=== PATIENT | male | born 2005 | race Caucasian/White ===

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

== ENCOUNTER → 2024-01-03 | Outpatient (CLI) | payer OTHER, BC, SELFPAY ==
[2024-01-03 17:49] LABS: Absolute Lymphocyte Count 2.63 X10^3/uL (0.83-4.51); Absolute Neutrophil Count 2.9 X10^3/uL (2.0-7.7); Basophil# 0.08 X10^3/uL; Basophil% 1.2 % (0-1); Eosinophil# 0.25 X10^3/uL; Eosinophils% 3.7 % (0-5); Hematocrit 42.8 % (40-54); Hemoglobin 13.7 g/dL (13.0-16.5); Lymphocyte # 2.63 X10^3/ul (0.83-4.51); Lymphocyte % 39.2 % (19-41); Mean Corpuscular Hgb 26.6 pg (27.0-32.0); Mean Corpuscular Volume 82.9 fL (80-94); Mean Platelet Vol. 9.4 fl (6.2-12.0); Monocyte% 11.9 % (0-10); NRBC Flagged by Analyzer 0 % (0-5); Neutrophil # 2.94 X10^3/uL (2.7-7.7); Neutrophil % 43.9 % (47-70); Platelet Count 413 K/mm3 (150-450); RBC Distribution Width CV 12.7 % (11.6-14.6); RBC Distribution Width SD 38.4 fl (35.1-43.9); Red Blood Count 5.16 M/mm3 (4.6-6.2); White Blood Count 6.7 K/mm3 (4.4-11.0)
[2024-01-03 18:10] LABS: Erythrocyte Sedimentation Rate 5 mm/hr (0-20)
[2024-01-03 18:24] LABS: ALB/GLOB Ratio 0.9 RATIO (0.9-2.4); AST(SGOT) 25 U/L (15-37); Alanine Aminotransfer ALT/SGPT 46 U/L (16-61); Albumin, Serum 3.9 g/dL (3.2-5.0); Alkaline Phosphatase 148 U/L (45-117); Anion Gap 7 (5-15); BUN 11 mg/dL (7-18); BUN/Creat Ratio 12.9 RATIO (10-20); CRP < 2.90 mg/L (0.0-3.0); Calcium,Total 9.5 mg/dL (8.5-10.1); Chloride 103 mmol/L (98-107); Creatinine, Serum 0.85 mg/dL (0.70-1.30); EST Glomerular Filtration Rate 122 mL/min (>60); Est Glom Filt Rate - Afr Amer 148 mL/min (>60); Globulin 4.3 g/dL (2.2-4.2); Glucose 84 mg/dL (74-106); Potassium 4.1 mmol/L (3.5-5.1); Protein, Total 8.2 g/dL (6.4-8.2); Sodium Level 137 mmol/L (136-145)
== END | disposition home or self-care (01) ==
PROVIDERS: PCP Family Medicine; Referring Provider Family Medicine; Visit Provider Family Medicine
DX: K51.00 Ulcerative (chronic) pancolitis without complications (principal)
CPT/HCPCS: 36415; 80053; 85025; 85652; 86140

== ENCOUNTER 2024-01-07 11:17 | Emergency (ER) | payer OTHER, BC, SELFPAY ==
[2024-01-07 11:18] VITALS: BP 111/53; PULSE 101; RESP 22; TEMP 36.7; O2SAT 96; BMI 33.9
[2024-01-07 11:20] VITALS: BP 111/53; PULSE 101; RESP 22; TEMP 36.7; O2SAT 96
--- NOTE | 2024-01-07 11:35 | CT_ITS ---
STUDY: CT ABDOMEN AND PELVIS WITH CONTRAST REASON FOR EXAM: Male, 18 years old. Diffuse abdominal pain RADIATION DOSAGE (If Supplied By Facility): CTDIvol = ( 16.75 ) mGy, DLP = ( 1387.00 ) mGycm TECHNIQUE: Transaxial images were obtained from the dome of the diaphragm to the symphysis pubis without oral contrast. IV 100mL Isovue-370 was administered. Sagittal and coronal images were reconstructed. Individualized dose optimization techniques were used for this CT. COMPARISON: 12/18/2023 FINDINGS: The visualized lung bases are unremarkable. The visualized portions of the heart are within normal limits. Normal liver. Normal gallbladder and extrahepatic biliary system. Normal spleen. Normal pancreas. Normal bilateral adrenal glands. Normal right kidney. Normal left kidney. Normal visualized stomach. Nondistended fluid-filled small bowel loops suggestive of ileus. Retained stool throughout the colon The appendix is visualized and appears normal. Appendix seen on coronal recon images 61-72 Normal abdominal aorta. Normal inferior vena cava. Normal retroperitoneum. Normal urinary bladder. There is a small umbilical hernia containing fat. Normal osseous structures. CT/Abdomen/Pelvis W IV Cont ONLY IMPRESSION: No suspicious solid organ abnormality No free intraperitoneal fluid, air, or suspicious adenopathy, normal appendix visualized Small bowel ileus perhaps due to retained stool throughout the entirety of the colon Electronically Signed: Erick Ramirez MD at 13:32 EDT ,
--- NOTE | 2024-01-07 11:36 | ED.VIS.GI ---
HPI HPI - GI History of Present Illness Chief Complaint: Abd Pain Detail of Chief Complaint: Abdominal pain Informant: patient Narrative Narrative: Patient presents with abdominal pain it has been ongoing off and on for 6 months. He was seen in the emergency department 2 weeks ago and diagnosed with pancolitis. 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 He has not been given his results and has not followed up and has an appointment to see the GI doctor again in 2 weeks. Patient seen in the emergency department 2 weeks ago and diagnosed with pancolitis and started on Augmentin which she finished. Continues to have the same belly pain. Also today had a low-grade fever and his cough gotten worse over the last 3 days. Both parents also with URI symptoms. Patient today had pain to the right lower quadrant which is unusual as his pain was more left-sided before. He denies any blood in his stool or black tarry stool. [facility] Medical History (Updated 01/07/24 @ 14:[address] Medhat Miller, DO) Colitis Home Medications ?Medication ?Instructions ?Recorded ?Last Taken ?Type dicyclomine 20 mg tablet 20 mg PO TID #20 tabs 12/18/23 Unknown Rx rabeprazole 20 mg tablet,delayed 20 mg PO Q24H 12/18/23 12/16/23 History release benzonatate 200 mg capsule 200 mg PO TID PRN cough #20 caps 01/07/24 Unknown Rx mesalamine 800 mg tablet,delayed 1,600 mg PO BID 01/07/24 Unknown History release Allergy/AdvReac Type Severity Reaction Status Date / Time iodine Allergy Other Verified 01/07/24 11:18 Family History (Reviewed 05/12/22 @ 07:59 by Linn Chi [employer]IDENT[employer]DELING [employer]ACTOR, RESIDENTIAL [employer]ODELING SUBCONTRACTOR-C) Father Asthma Surgical History No pertinent past surgical history Social History Smoking Status: Never smoker ROS ROS ED Review of Systems ROS Unobtainable: other Constitutional Constitutional ED: Reports lethargy; Denies chills, fever(s), sweats or weight loss Eyes Eyes: Denies blurry vision, change in vision or diplopia ENT ENT ED: Denies rhinorrhea or sore throat Cardiovascular Cardiovascular: Denies chest pain, orthopnea or racing heartbeat Respiratory/Chest Respiratory/Chest: Reports cough; Denies dyspnea, dyspnea on exertion, orthopnea or sputum Gastrointestinal Gastrointestinal: Reports abdominal pain; Denies diarrhea, nausea or vomiting Genitourinary Genitourinary ED: Denies dysuria, hematuria or urinary frequency Musculoskeletal Musculoskeletal: Denies arthralgias, back pain, myalgias or neck pain Integumentary Denies abscess, Abrasions or rash Neurologic Neurologic: Denies headache(s) or weakness Psychiatric Psychiatric: Denies anxiety, depression or suicidal thoughts Endocrine Endocrinology: Denies polydipsia, polyphagia or polyuria Hematologic/Lymphatic Hematologic/Lymphatic: Denies easy bleeding, easy bruising or lymphadenopathy Allergic/Immunologic Allergic/Immunologic ED: Denies mouth swelling, tongue swelling or urticaria EXAM Physical Exam Const Vital Signs: 01/07/24 11:18 01/07/24 11:20 01/07/24 13:43 Temperature 98.1 F 98.1 F Temperature Source Temporal Oral Pulse Rate 101 H 101 H 91 Respiratory Rate 22 H 22 H 18 Blood Pressure 111/53 L 111/53 L 99/84 H Blood Pressure Mean 72 72 89 Pulse Ox 96 96 99 Oxygen Delivery Method Room Air Room Air Room Air Positive well nourished and well developed General Appearance ED: well developed and NAD HEENT Reports TM's clear and moist mucous membranes normocephalic and atraumatic; Negative for trauma or tenderness Tympanic Membrane ED: Yes TM's clear Eyes PERRL and EOMs intact bilaterally General Eye ED: Negative for pale conjunctiva or scleral icterus Neck no lymphadenopathy, supple and no JVD General: Negative for tenderness Chest Wall inspection of chest normal and palpation of chest normal Chest: Negative for tenderness Resp normal respiratory effort and clear to auscultation bilaterally Effort and Inspection: Negative for respiratory distress or pain with movement Auscultation: Negative for rhonchi, wheezes or diminished lung sounds Cardio regular rate, regular rhythm, S1 normal heart sound, S2 normal heart sound and no murmurs Peripheral Pulses: pulses 2+ throughout GI normal to inspection, nondistended, normoactive bowel sounds, soft to palpation, non-distended and no masses GI Narrative: Patient with tenderness palpation over right lower quadrant with some mild guarding. He has some mild diffuse tenderness as well. There is no rebound, rigidity, or perineal signs. No mass palpated Back/Spine no CVA tenderness and no thoracic nor lumbar tenderness Extremity normal to inspection General Extremety ED: Negative for edema General Extremity: Negative for edema Neuro oriented x3, CN's II-XII intact bilaterally, no sensory deficits noted and gait normal Sensorium / Orientation: awake, alert, oriented to person, oriented to place and oriented to time Motor Exam: strength 5/5 throughout and strength abnormal Psych mental status grossly normal Skin no rashes or lesions noted and no wounds MDM MDM MDM Narrative Medical decision making narrative: Patient presents the emergency department with complaint of abdominal pain as well as cough and not feeling well. Patient was seen in the emergency department few weeks ago and diagnosed with pancolitis and was treated with antibiotics. He continues to have intermittent abdominal discomfort. He is got an upcoming appoint with GI. Patient also complains of a cough and fever now. IV line established. CBC with differential obtained showing a 5.4 with hemoglobin 14 and platelet count of 336. Chemistries unremarkable. LFTs were unremarkable other than a minimally elevated AST of 42 and alk phos of 151. Urinalysis unremarkable. 1 view chest x-ray obtained interpreted by myself as no evidence of infiltrate or acute process. CT scan of the abdomen pelvis showed no evidence of colitis but did show some moderate stool throughout the colon. Clinically he looks well. His COVID flu and RSV testing was positive for COVID-19. This point recommended supportive care. Will write him for Johana Burton. Advised on pushing fluids and staying hydrated. Lab Data Attestation: I reviewed the patient's lab results. Labs: Laboratory Results - last 24 hr 01/07/24 01/07/24 11:50 13:28 WBC 5.4 RBC 5.16 Hgb 14.1 Hct 42.9 MCV 83.1 MCH 27.3 MCHC 32.9 RDW Std Deviation 38.5 RDW Coeff of Patricia 12.6 Plt Count 336 MPV 9.0 Immature Gran % (Auto) 0.200 Neut % (Auto) 74.2 H Lymph % (Auto) 8.5 L [place] % (Auto) 14.7 H Eos % (Auto) 1.3 Baso % (Auto) 1.1 H Absolute Neuts (auto) 4.0 Absolute Lymphs (auto) 0.46 L Nucleated RBC % 0 Sodium 139 Potassium 3.6 Chloride 107 Carbon Dioxide 29.0 Anion Gap 3 L BUN 7 Creatinine 0.94 Estim Creat Clear Calc 169.07 Est GFR (MDRD) Af Amer 132 Est GFR (MDRD) Non-Af 109 BUN/Creatinine Ratio 7.5 L Glucose 98 Lactic Acid 1.2 Calcium 9.1 Total Bilirubin 0.50 AST 42 H ALT 55 Alkaline Phosphatase 151 H Total Protein 8.1 Albumin 3.6 Globulin 4.5 H Albumin/Globulin Ratio 0.8 L Urine Color Yellow Urine Clarity Clear Urine pH 8.0 Ur Specific [place] 1.010 Urine Protein 15 H Urine Glucose (UA) Normal Urine Ketones Negative Urine Occult Blood 10 H Urine Nitrite Negative Urine Bilirubin Negative Urine Urobilinogen 1 H Ur Leukocyte Esterase Negative Urine RBC 0 SEEN Urine WBC 0 SEEN Ur Squamous Epith Cells 0 SEEN Urine Bacteria 0 SEEN Urine Mucus 0 SEEN Radiography Diagnostic Testing: Clinical Impression(s) from Imaging Studies Abdomen/Pelvis CT 01/07/24 11:35 IMPRESSION: No suspicious solid organ abnormality No free intraperitoneal fluid, air, or suspicious adenopathy, normal appendix visualized Small bowel ileus perhaps due to retained stool throughout the entirety of the colon Electronically Signed: Erick Ramirez MD at 13:32 EDT Reading Location ID and State: [address] [place] [address] , Service support , 1 view chest x-ray obtained interpreted by myself as no evidence of infiltrate or pneumothorax or acute disease process. Discharge Plan Triage Chief Complaint: Abd Pain ED Provider: Medhat Miller Dx/Rx/DC Orders Clinical Impression: Abdominal pain, COVID-19 Instructions: Caring for Someone Who Has COVID-19, ED Abdominal Pain Unkn Cause Male... Prescriptions: New benzonatate 200 mg capsule 200 mg PO TID PRN (Reason: cough) Qty: 20 0RF No Action rabeprazole 20 mg tablet,delayed release (DR/EC) 20 mg PO Q24H dicyclomine 20 mg tablet 20 mg PO TID Qty: 20 0RF mesalamine 800 mg tablet,delayed release (DR/EC) 1,600 mg PO BID Primary Care Provider: Roderick Argueta Referrals: Roderick Argueta MD [Primary Care Provider] - 5-7 Days Activity Restrictions/Additional Instructions: Keep your appointment with your telemarketing supervisor Print Language: Kiswahili Disposition Disposition: Home, Self Care
[2024-01-07 12:07] LABS: Absolute Lymphocyte Count 0.46 X10^3/uL (0.83-4.51); Basophil# 0.06 X10^3/uL; Basophil% 1.1 % (0-1); Eosinophil# 0.07 X10^3/uL; Eosinophils% 1.3 % (0-5); Hematocrit 42.9 % (40-54); Hemoglobin 14.1 g/dL (13.0-16.5); Lymphocyte # 0.46 X10^3/ul (0.83-4.51); Lymphocyte % 8.5 % (19-41); Mean Corp Hgb Conc 32.9 g/dL (32-36); Mean Corpuscular Hgb 27.3 pg (27.0-32.0); Mean Corpuscular Volume 83.1 fL (80-94); Monocyte% 14.7 % (0-10); NRBC Flagged by Analyzer 0 % (0-5); Neutrophil # 4.03 X10^3/uL (2.7-7.7); Neutrophil % 74.2 % (47-70); POSITIVE DIFFERENTIAL YES; Platelet Count 336 K/mm3 (150-450); RBC Distribution Width CV 12.6 % (11.6-14.6); RBC Distribution Width SD 38.5 fl (35.1-43.9); Red Blood Count 5.16 M/mm3 (4.6-6.2); White Blood Count 5.4 K/mm3 (4.4-11.0)
[2024-01-07 12:23] LABS: ALB/GLOB Ratio 0.8 RATIO (0.9-2.4); AST(SGOT) 42 U/L (15-37); Alanine Aminotransfer ALT/SGPT 55 U/L (16-61); Albumin, Serum 3.6 g/dL (3.2-5.0); Alkaline Phosphatase 151 U/L (45-117); Anion Gap 3 (5-15); BUN 7 mg/dL (7-18); BUN/Creat Ratio 7.5 RATIO (10-20); Calcium,Total 9.1 mg/dL (8.5-10.1); Chloride 107 mmol/L (98-107); Creatinine, Serum 0.94 mg/dL (0.70-1.30); EST Glomerular Filtration Rate 109 mL/min (>60); Est Glom Filt Rate - Afr Amer 132 mL/min (>60); Estimated Creatinine Clearance 169.07 ml/min; Globulin 4.5 g/dL (2.2-4.2); Glucose 98 mg/dL (74-106); Potassium 3.6 mmol/L (3.5-5.1); Protein, Total 8.1 g/dL (6.4-8.2); Sodium Level 139 mmol/L (136-145)
[2024-01-07 12:24] LABS: Lactic Acid 1.2 mmol/L (0.4-1.9)
[2024-01-07 13:35] LABS: Bacteria 0 SEEN /hpf (None Seen); Mucous, Urine 0 SEEN /hpf (<or=2+); Red Blood Cells-Urine 0 SEEN /hpf (0-5); Squamous Epithelial Cells - UA 0 SEEN /hpf (0-5); White Blood Cells 0 SEEN /hpf (0-5)
--- NOTE | 2024-01-07 13:36 | RAD_ITS ---
STUDY: X-RAY CHEST REASON FOR EXAM: Male, 18 years old. Fever and cough TECHNIQUE: Single AP portable view of the chest. COMPARISON: None. FINDINGS: The lungs are clear and expanded. There is no demonstrated pleural abnormality. Normal size heart. Normal mediastinum and mir. Normal visualized pulmonary arteries. Normal visualized aortic arch and descending thoracic aorta. Normal visualized thoracic spine. Normal visualized ribs, clavicles, and shoulders. There is no demonstrated abnormality of the visualized soft tissue structures of the upper abdomen. RAD/Chest 1 View (Portable) IMPRESSION: Normal x-ray examination of the chest. Electronically Signed: Erick Ramirez MD at 14:16 EDT ,
[2024-01-07 13:38] LABS: Color, Urine Yellow (Yellow); Glucose, Dipstick Normal (Normal); Ketone-Dipstick Negative (Negative); Leukocyte Esterase-Dipstick Negative /ul (Negative); Nitrite-Dipstick Negative (Negative); Occult Blood-Urine 10 /ul (Negative); Protein-Dipstick 15 mg/dl (Negative); Urine Bilirubin Dipstick Negative (Negative); Urine Clarity Clear (Clear); Urine Urobilinogen 1 mg/dl (Normal)
[2024-01-07 13:43] VITALS: BP 99/84; PULSE 91; RESP 18; O2SAT 99
[2024-01-07] MEDS: 0.9% Normal Saline (1000mL) 1,000 ML 125 ML IV (14:00)
[2024-01-07 14:04] VITALS: BP 97/40; PULSE 78; RESP 17; TEMP 36.6; O2SAT 99
== END 2024-01-07 14:10 | disposition home or self-care (01) ==
PROVIDERS: Emergency Provider Emergency Medicine; PCP Family Medicine; Visit Provider Emergency Medicine
DX: U07.1 COVID-19 (principal); R10.31 Right lower quadrant pain; Z79.899 Other long term (current) drug therapy
CPT/HCPCS: 71045; 74177; 80053; 81001; 83605; 85025; 87631; 99282; J7030; Q9967; A4216

== ENCOUNTER → 2024-01-30 | Outpatient (CLI) | payer OTHER, BC, SELFPAY ==
[2024-01-30 18:06] LABS: Absolute Lymphocyte Count 2.17 X10^3/uL (0.83-4.51); Absolute Neutrophil Count 3.1 X10^3/uL (2.0-7.7); Basophil# 0.11 X10^3/uL; Basophil% 1.6 % (0-1); Eosinophil# 0.44 X10^3/uL; Eosinophils% 6.4 % (0-5); Hematocrit 40.5 % (40-54); Hemoglobin 13.1 g/dL (13.0-16.5); Lymphocyte # 2.17 X10^3/ul (0.83-4.51); Lymphocyte % 31.7 % (19-41); Mean Corp Hgb Conc 32.3 g/dL (32-36); Mean Corpuscular Hgb 26.7 pg (27.0-32.0); Mean Corpuscular Volume 82.7 fL (80-94); Mean Platelet Vol. 9.6 fl (6.2-12.0); Monocyte# 1.03 X10^3/uL; Monocyte% 15.1 % (0-10); NRBC Flagged by Analyzer 0 % (0-5); Neutrophil # 3.07 X10^3/uL (2.7-7.7); Neutrophil % 44.9 % (47-70); Platelet Count 401 K/mm3 (150-450); RBC Distribution Width CV 13.1 % (11.6-14.6); RBC Distribution Width SD 39.3 fl (35.1-43.9); White Blood Count 6.8 K/mm3 (4.4-11.0)
[2024-01-30 18:18] LABS: Erythrocyte Sedimentation Rate 5 mm/hr (0-20)
[2024-01-30 18:55] LABS: AST(SGOT) 27 U/L (15-37); Alanine Aminotransfer ALT/SGPT 41 U/L (16-61); Albumin, Serum 3.8 g/dL (3.2-5.0); Alkaline Phosphatase 152 U/L (45-117); CRP < 2.90 mg/L (0.0-3.0); Globulin 4.2 g/dL (2.2-4.2)
[2024-02-05 16:52] LABS: GGTP 69
== END | disposition home or self-care (01) ==
LOC: MTLAB 15:27
PROVIDERS: PCP Family Medicine; Referring Provider Internal Medicine Gastroenterology; Visit Provider Internal Medicine Gastroenterology
DX: R10.9 Unspecified abdominal pain (principal); R19.7 Diarrhea, unspecified
CPT/HCPCS: 36415; 80076; 82977; 85025; 85652; 86140

== ENCOUNTER 2024-03-29 21:46 | Emergency (ER) | payer OTHER, SELFPAY ==
[2024-03-29 21:47] VITALS: BP 129/73; PULSE 66; RESP 16; TEMP 36; O2SAT 99; BMI 36.3
--- NOTE | 2024-03-29 22:00 | RAD_ITS ---
INDICATION: injury EXAMINATION/TECHNIQUE: X-RAY - LEFT XR Knee Complete 4 Views COMPARISON: FINDINGS: SOFT TISSUES: No soft tissue swelling or gas. No radiopaque foreign body. BONES/JOINTS: No acute fracture or subluxation.. Normal alignment. Preservation of the joint space.. No sclerotic or destructive changes observed. RAD/Knee 4 or More Views IMPRESSION: Negative. Electronically Signed: Horacio Armando DO at 22:26 EDT ,
--- OUTSIDE RECORDS SUMMARY | 2024-03-29 22:31 | XMS RPT_ITS | CCD ---
Author Organization [facility] Care Team Providers Care Orchestra Conductor Name Role Phone Unavailable Primary Care Provider RENATA Sykes Attending Unavailable EMILIANO CRUZ Referring Unavailable ARMANDO BELLA, DR MCARTHUR Attending Kd ROBERTS MD, DR MCARTHUR Attending Kd ROBERTS MD, DR MCARTHUR Attending Kd Dueñas Primary Care Provider Kd martínez Allergies Allergy Classification Reported Allergen(s) Allergy Type Date of Onset Reaction(s) Facility (4 sources) Iodine; Translations: [IODINE] Drug Allergy 05-12-2022 Other: See Comments [facility] Medications Current Medications Medication Drug Class(es) Dates Sig (Normalized) Sig (Original) Loratadine (3 sources) loratadine (CLAR ITIN ORAL) Take by mouth. Active loratadine (CLAR ITIN ORAL) Take by mouth. 0 Active Comment on above: Take by mouth. Completed/Discontinued Medications Medication Drug Class(es) Dates Sig (Normalized) Sig (Original) mometasone furoate 0.001 mg/mg topical ointment (1 source) Corticosteroid Start: 08-16-2023 mometasone (ELOCON) 0.1 % ointment Indications: Laceration of right ring finger without foreign body without damage to nail, initial encounter APPLY OINTMENT TOPICALLY TO AFFECTED AREA TWICE DAILY UNTIL RASH IS GONE FOR 3 DAYS 0 08/16/2023 Active Comment on above: APPLY OINTMENT TOPIC ALLY TO AFFECTED AREA TWICE DAILY UNTIL RASH IS GONE FOR 3 DAYS Problems Active Problems Problem Classification Problem Date Documented Da te Episodic/Chronic Esophageal disorders (2 sources) Gastro-esophageal reflux disease without esophagitis; Translations: [Gastro-esophagea l reflux disease without esophagitis] Onset: 11-15-2023 Chronic Open wounds of extremities (1 source) Laceration of right ring finger; Translations: [Laceration without foreign body of right ring finger without damage to nail, initial encounter] 09-10-2023 Episodic Open wounds of extremities (1 source) Laceration of left index finger; Translations: [Laceration without foreign body of left index finger without damage to nail, initial encounter] 09-10-2023 Episodic Other connective tissue disease (2 sources) Pain of left hand; Translations: [Pain in left hand] 07-02-2023 Episodic Other gastrointestinal disorders (4 sources) Diarrhea, unspecified; Translations: [Diarrhea, unspecified] Onset: 02-07-2024 Episodic Other screening for suspected conditions (not mental disorders or infectious disease) (2 sources) Abnormal findings on diagnostic imaging of other specified body structures; Translations: [Abnormal findings on diagnostic imaging of other specified body structures] Onset: 11-15-2023 Chronic Other screening for suspected conditions (not mental disorders or infectious disease) (4 sources) Abnormal findings on diagnostic imaging of other parts of digestive tract; Translations: [Abnormal findings on diagnostic imaging of other parts of digestive tract] Onset: 02-07-2024 Episodic Past or Other Problems Problem Classification Problem Date Documented Da te Episodic/Chronic Other connective tissue disease (1 source) Pain in left hand; Translations: [Hand pain, left] Onset: 07-02-2023 Episodic Results Test Name Value Interpretation Reference Range Facility Final Surgical Pathology Rep sherry 02-10-2024 Final Surgical Pathology Report . Pathology Reports Accession: Collected Date/Time: Received Date/Time: Pathologist: [id number] 02/07/2024 15:43 EDT 02/09/2024 09:32 EDT CHARANJIT OROURKE MD Final Surgical Pathology Report DIAGNOSIS: A. TERMINAL ILEUM, BIOPSY: - FRAGMENTS OF TERMINAL ILEAL MUCOSA WITH NO SIGNIFICANT PATHOLOGIC CHANGES Comment: Prominent Peyer's patches identified. B. DESCENDING COLON BIOPSY: - FOCAL ACTIVE COLITIS PATTERN Comment: The biopsies show colon mucosa with normal architecture, slight increase in chronic inflammatory cells in the lamina propria and rare cryptitis. The histologic changes at this time favor self-limited colitis. Correlation with clinical and endoscopic findings recommended. CLINICAL INFORMATION: Procedure: DIAGNOSTIC COLONOSCOPY WITH POSSIBLE BIOPSY AND/OR POLYPECTOMY Preoperative diagnosis: DIARRHEA/ABN CT SCAN Postoperative diagnosis: SCAN SPECIMEN: A TERMINAL ILEUM COLON, BX B DESCENDING COLON, BX GROSS DESCRIPTION: All parts labelled with patient name and [id number]. Received in formalin labeled terminal ileum biopsies are 5 castellon tissue fragments measuring less than 0.1 to 0.3 cm. Smallest fragment may not survive processing. TS-1 B. Received in formalin labeled descending colon biopsies are multiple castellon-pink tissue fragments aggregating 1.7 x 0.2 x 0.1 cm. Smallest fragments may not survive processing. TS-1 Barby Sheridan, Grossing Industrial Training Specialist/ Dr. Sriram Palencia, Pathologist Performed by Barby Sheridan MICROSCOPIC DESCRIPTION: The microscopic examination is performed, except in the case of Gross Only. Electronically Signed by Pathology Report verified by [facility] CHARANJIT OROURKE Sign out Date: 02/10/2024 10:15 Performing Lab: [facility], [address] [place] [address] Pathology Dept Disclaimer If ancillary studies were utilized, the following Laboratory Developed Test (LDT) disclaimer will apply: Under CLIA requirements, [facility] Pathology Laboratory is qualified to perform high complexity testing. For all ancillary stains, positive and negative controls stain appropriately. Performance characteristics of immunohistochemical and chromogenic in-situ hybridization tests have been determined by [facility] Pathology Laboratory. These tests are used for clinical purposes, They should not be regarded as investigational or for research. Normal [facility] Final Surgical Pathology Rep [facility] 11-17-2023 Final Surgical Pathology Report . Pathology Reports Accession: Collected Date/Time: Received Date/Time: Pathologist: [id number] 11/15/2023 09:14 EDT 11/16/2023 09:14 EDT MD CLARENCE LANDAVERDE Final Surgical Pathology Report DIAGNOSIS: A. STOMACH, BIOPSY: - MILD CHRONIC GASTRITIS - NEGATIVE FOR H. PYLORI B. ESOPHAGUS, BIOPSY: - EOSINOPHILIC ESOPHAGITIS CLINICAL INFORMATION: Procedure: ESOPHAGOGASTRODUODENOSCOPY WITH BXS Preoperative diagnosis: ABNORMAL CT, GERD Postoperative diagnosis: ABNORMAL CT, GERD SPECIMEN: A GASTRIC ANTRUM/BODY BX - R/O GASTRITIS B ESOPHAGEAL BX - R/O EOSINOPHILIC ESOPHAGITIS GROSS DESCRIPTION: All parts labelled with patient name and [id number]. Received in formalin labeled gastric/antrum biopsy are 5 castellon-pink tissue fragments measuring 0.2 to 0.6 x 0.1 cm. TS-1 B. Received in formalin labeled esophageal biopsy are multiple castellon tissue fragments aggregating 1.1 x 0.4 x 0.1 cm. TS-1 Barby Sheridan, Grossing Industrial Training Specialist/ Dr. Sriram Palencia, Pathologist Dictated by Barby Sheridan MICROSCOPIC DESCRIPTION: The microscopic examination is performed, except in the case of Gross Only. Electronically Signed by Pathology Report verified by [facility] CLARENCE LANDAVERDE MD Sign out Date: 11/17/2023 11:38 Performing Lab: [facility], [address] [place] [address] Pathology Dept Disclaimer If ancillary studies were utilized, the following Laboratory Developed Test (LDT) disclaimer will apply: Under CLIA requirements, [facility] Pathology Laboratory is qualified to perform high complexity testing. For all ancillary stains, positive and negative controls stain appropriately. Performance characteristics of immunohistochemical and chromogenic in-situ hybridization tests have been determined by [facility] Pathology Laboratory. These tests are used for clinical purposes, They should not be regarded as investigational or for research. Normal [facility] ([place] CNOVon 09-10-2023 CNOV Office Visit (UCWSTR ) ARNOL MORRIS ([id number]) 3 M Date Time Provider Department 09/10/23 11:15 AM RENATA CABALLERO WSTR During your visit today, we recorded the following information about you: Temperature Pulse Respiration Blood pressure 97.2 degrees 76/minute 16/minute 102/62 Weight 114 kg Nella Brink 09/10/2023 11:37 AM Addendum Subjective Laceration Pt presents to clinic on September 10, 2023 for CC: requesting tetanus shot Last night patient was working on his truck and a ed shock absorber cut his right ring finger and left index finger It bled and then he cleaned it and bandaged it Some tenderness remains No fever, symptoms of infection including swelling, redness, oozing, etc. Is unsure if he has had a tetanus shot before Review of Systems Constitutional: Negative for fever. Musculoskeletal: Negative for joint pain. Skin: Negative for itching and rash. Neurological: Negative for sensory change and weakness. BP 102/62 Pulse 76 Temp 36.2 ?C (97.2 ?F) Resp 16 Wt 114 kg (251 lb 5.2 oz) SpO2 98% No past medical history on file. No past surgical history on file. ALLERGIES Iodine MEDICATIONS mometasone (ELOCON) 0.1 % ointment APPLY OINTMENT TOPICALLY TO AFFECTED AREA TWICE DAILY UNTIL RASH IS GONE FOR 3 DAYS loratadine (CLARITIN ORAL) Take by mouth. (Patient not taking: Reported on 07/02/2023) No family history on file. Social History Tobacco Use Smoking status: Never Smokeless tobacco: Never Objective Physical Exam Constitutional: General: He is not in acute distress. Appearance: Normal appearance. He is not ill-appearing, toxic-appearing or diaphoretic. Skin: General: Skin is warm. Coloration: Skin is not jaundiced or pale. Findings: Signs of injury and laceration present. No bruising, erythema, lesion or rash. Comments: Two lacerations- one on right ring finger and the other on left index finger Both lacerations are healing Neurological: Mental Status: He is alert and oriented to person, place, and time. Sensory: No sensory deficit. ASSESSMENT/PLAN: 1. Laceration of right ring finger without foreign body without damage to nail, initial encounter - ICD9: 883.0, ICD10: S61.214A (primary diagnosis) - TDAP VACCINE, AGE 7+ YR (ADACEL, BOOSTRIX) 2. Laceration of left index finger without foreign body without damage to nail, initial encounter - ICD9: 883.0, ICD10: S61.211A JENSEN Garcia TEACHING PROVIDER (Physician/PA/SITE MANAGER) NOTE OF PERSONAL INVOLVEMENT IN CARE: I have personally seen and examined the patient and performed the medical decision-making components. I have reviewed the Advanced Practice Registered Nurse (SITE MANAGER) Student's documentation and verified the findings in the note as written. Any additions or changes are noted in bold/italics. Signature: Renata Caballero Date: 09/10/2023 Time: 11:49 AM Renata Caballero APRN.[facility] 09/10/2023 11:50 AM Signed ASSESSMENT/PLAN: 1. Laceration of right ring finger without foreign body without damage to nail, initial encounter - ICD9: 883.0, ICD10: S61.214A (primary diagnosis) - TDAP VACCINE, AGE 7+ YR (ADACEL, BOOSTRIX) 2. Laceration of left index finger without foreign body without damage to nail, initial encounter - ICD9: 883.0, ICD10: S61.211A Allergies As of Date: 09/10/2023 Noted Allergy Reaction IODINE 05/12/2022 14 - Other: See Comments Date Reviewed: 09/10/2023 Reviewed by: Yeny Newman MA - Fully Assessed Reason for Visit: Laceration [1747] Cmt: small 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 hands from working on ed truck Primary Visit Diagnosis:Laceration of right ring finger without foreign body without damage to nail, initial encounter [S61.214A] Other Visit Diagnosis:Laceration of left index finger without foreign body without damage to nail, initial encounter [S61.211A] Order(s):TDAP VACCINE, AGE 7+ YR (ADACEL, BOOSTRIX) [23506CIM] Order #: [id number] Prescriptions as of 09/10/2023 - mometasone (ELOCON) 0.1 % ointment APPLY OINTMENT TOPICALLY TO AFFECTED AREA TWICE DAILY UNTIL RASH IS GONE FOR 3 DAYS - loratadine (CLARITIN ORAL) Take by mouth. Problem List As Of Date: 09/10/2023 (None) Other instructions from your clinician: ASSESSMENT/PLAN: 1. Laceration of right ring finger without foreign body without damage to nail, initial encounter - ICD9: 883.0, ICD10: S61.214A (primary diagnosis) - TDAP VACCINE, AGE 7+ YR (ADACEL, BOOSTRIX) 2. Laceration of left index finger without foreign body without damage to nail, initial encounter - ICD9: 883.0, ICD10: S61.211A Disposition: Return if symptoms worsen or fail to improve. Follow-up and Disposition History for Encounter Date Provider Department Center 09/10/2023 [id number], KA*UCWSTR [facility] Encounter Status:Closed by RENATA CABALLERO on 09/10/23 Normal [facility] CNOVon 07-02-2023 CNOV Office Visit (UCWSTR ) ARNOL MORRIS ([id number]) [birth year] M Date Time Provider Department 07/02/23 11:45 AM EMILIANO CRUZ [facility] During your visit today, we recorded the following information about you: Temperature Pulse Respiration Blood pressure 97.3 degrees 54/minute 18/minute 110/61 Weight 110.7 kg Emiliano Cruz APRN.QUALITY SYSTEMS ENGINEER 07/02/2023 1:08 PM Signed Subjective HPI Nontoxic-appearing male presents urgent care [...] Bwc (Worker's Comp): L hand thumb injury x1 day History reviewed. No pertinent past medical [...] of care. This note was generated using Likeeds software. It may contain errors in wording, punctuation, or spelling. Emiliano Cruz APRN.QUALITY SYSTEMS ENGINEER Allergies As of Date: 07/02/2023 Noted Allergy Reaction IODINE 05/12/2022 14 - Other: See Comments Date Reviewed: 07/02/2023 Reviewed by: Emiliano Cruz APRN.QUALITY SYSTEMS ENGINEER - Fully Assessed Reason for Visit: Bwc (Worker's Comp) [4136] Cmt: L hand thumb injury x1 day Primary Visit Diagnosis:Hand pain, left [M79.642] Order(s):XR HAND GENERAL 3V PA/LAT/OBL LEFT [[id number]] Order #: [id number] FUTURE Prescriptions as of 07/02/2023 - loratadine (CLARITIN ORAL) Take by mouth. Problem List As Of Date: 07/02/2023 (None) Level of Service: OFFICE/OUTPATIENT ESTABLISHED LOW [facility] 20 MIN [84844] [place] (more content not included)... Normal [facility] XR HAND 3V PA/LAT/OBL LTon 0 07-02-2023 XR HAND 3V PA/LAT/OBL LT * * *Final Report* * * DATE OF EXAM: Jul 02 2023 12:12PM [id number] - XR HAND 3V PA/LAT/OBL LT / PROCEDURE REASON: Hand pain, left * * * * Physician Interpretation * * * * TITLE: XR HAND 3V PA/LAT/OBL LT CLINICAL INDICATION: Pain TECHNIQUE: 3 view radiographs extending of the left hand COMPARISON: None FINDINGS: No acute fracture or dislocation identified. Joint spaces preserved. No radiopaque foreign body. IMPRESSION: No radiographic evidence of acute osseous injury. Steam Engineer: [facility] Transcribe Date/Time: Jul 02 2023 12:36P Dictated by : ALISIA STEARNS MD This examination was interpreted and the report reviewed and electronically signed by: ALISIA STEARNS MD on Jul 02 2023 12:36PM EST [id number] Normal [facility] XR HAND GENERAL 3V PA/LAT/OB L LEFTon 07-02-2023 [facility] XR Hand - left PA and Latera l and Obliqueon 07-02-2023 IMPRESSION: No radiographic evidence of acute osseous injury. Steam Engineer: [facility] Transcribe Date/Time: Jul 02 2023 12:36P Dictated by : ALISIA STEARNS MD This examination was interpreted and the report reviewed and electronically signed by: ALISIA STEARNS MD on Jul 02 2023 12:36PM EST DIVISION OF RADIOLOGY * * *Final Report* * * DATE OF EXAM: Jul 02 2023 12:12PM [id number] - XR HAND 3V PA/LAT/OBL LT / PROCEDURE REASON: Hand pain, left * * * * Physician Interpretation * * * * TITLE: XR HAND 3V PA/LAT/OBL LT CLINICAL INDICATION: Pain TECHNIQUE: 3 view radiographs extending of the left hand COMPARISON: None FINDINGS: No acute fracture or dislocation identified. Joint spaces preserved. No radiopaque foreign body. DIVISION OF RADIOLOGY Provider, [facility] - 07/02/2023 * * *Final Report* * * DATE OF EXAM: Jul 02 2023 12:12PM [id number] - XR HAND 3V PA/LAT/OBL LT / PROCEDURE REASON: Hand pain, left * * * * Physician Interpretation * * * * TITLE: XR HAND 3V PA/LAT/OBL LT CLINICAL INDICATION: Pain TECHNIQUE: 3 view radiographs extending of the left hand COMPARISON: None FINDINGS: No acute fracture or dislocation identified. Joint spaces preserved. No radiopaque foreign body. IMPRESSION IMPRESSION: No radiographic evidence of acute osseous injury. Steam Engineer: [facility] Transcribe Date/Time: Jul 02 2023 12:36P Dictated by : ALISIA STEARNS MD This examination was interpreted and the report reviewed and electronically signed by: ALISIA STEARNS MD on Jul 02 2023 12:36PM EST [facility] Radiology Study observation (narrative) [facility] XR Hand - left PA and Latera l and ObliqueOrdered By: Ccf Provider on 07-02-2023 [facility] Vital Signs Date Time Vital Sign Value Performing Clinician Yinka owens 09-10-2023 11:22-0400 Body temperature 97.2 [degF] Renata Caballero APRN.QUALITY SYSTEMS ENGINEER Work Phone: [facility] 09-10-2023 11:22-0400 Body weight 114 kg Renata Praisler-Wood SITE MANAGER.QUALITY SYSTEMS ENGINEER Work Phone: [facility] 09-10-2023 11:22-0400 Diastolic blood pressure 62 mm[Hg] Renata Praisler-Wood SITE MANAGER.QUALITY SYSTEMS ENGINEER Work Phone: [facility] 09-10-2023 11:22-0400 Heart rate 76 /min Renata Praisler-Wood SITE MANAGER.QUALITY SYSTEMS ENGINEER Work Phone: [facility] 09-10-2023 11:22-0400 Respiratory rate 16 /min Renata Praisler-Wood SITE MANAGER.QUALITY SYSTEMS ENGINEER Work Phone: [facility] 09-10-2023 11:22-0400 SaO2% (BldA) [Mass fraction] 98 % Renata Praisler-Wood SITE MANAGER.QUALITY SYSTEMS ENGINEER Work Phone: [facility] 09-10-2023 11:22-0400 Systolic blood pressure 102 mm[Hg] Renata Praisler-Wood SITE MANAGER.QUALITY SYSTEMS ENGINEER Work Phone: [facility] 07-02-2023 11:58-0500 Body temperature 97.3 [degF] Emiliano Pendlebury SITE MANAGER.QUALITY SYSTEMS ENGINEER Work Phone: [facility] 07-02-2023 11:58-0500 Body weight 110.68 kg Emiliano Pendlebury SITE MANAGER.QUALITY SYSTEMS ENGINEER Work Phone: [facility] 07-02-2023 11:58-0500 Diastolic blood pressure 61 mm[Hg] Emiliano Pendlebury SITE MANAGER.QUALITY SYSTEMS ENGINEER Work Phone: [facility] 07-02-2023 11:58-0500 Heart rate 54 /min Emiliano Pendlebury SITE MANAGER.QUALITY SYSTEMS ENGINEER Work Phone: [facility] 07-02-2023 11:58-0500 Respiratory rate 18 /min Emiliano Pendlebury SITE MANAGER.QUALITY SYSTEMS ENGINEER Work Phone: [facility] 07-02-2023 11:58-0500 SaO2% (BldA) [Mass fraction] 97 % Emiliano Pendlebury SITE MANAGER.QUALITY SYSTEMS ENGINEER Work Phone: [facility] 07-02-2023 11:58-0500 Systolic blood pressure 110 mm[Hg] Emiliano Cruz SITE MANAGER.QUALITY SYSTEMS ENGINEER Work Phone: [facility] Encounters Encounter Date Encounter Type Care Provider Facility Start: 02-07-2024 End: 02-11-[address] LYUBOV ROBERTS MD Facility:B Start: 02-07-2024 End: 02-11-[address] LYUBOV ROBERTS MD [facility] Start: 12-10-2023 ambulatory RENATA CABALLERO Fac ility:[facility] Start: 11-15-2023 End: 11-19-[address] LYUBOV ROBERTS MD Facility:[facility] Start: 11-15-2023 End: 11-19-[address] LYUBOV ROBERTS MD [facility] Start: 09-10-2023 End: 09-10-2023 ambulatory RENATA CABALLERO Facility:[facility] Start: 09-10-2023 End: 09-10-2023 Patient encounter procedure Renata Caballero APRN.QUALITY SYSTEMS ENGINEER Work Phone: [facility] Comment on above: Laceration of right ring finger without foreign body without damage to nail, initial encounter (Primary Dx); Laceration of left index finger without foreign body without damage to nail, initial encounter Start: 07-02-2023 End: 07-02-2023 Subsequent hospital visit by physician Xr [facility] Work Phone: Radiology Comment on above: Hand pain, left [M79 .642] Start: 07-02-2023 End: 07-02-2023 ambulatory EMILIANO CRUZ Facility:[facility] Start: 07-02-2023 End: 07-02-2023 Office outpatient visit 15 minutes Emiliano Cruz APRN.QUALITY SYSTEMS ENGINEER Work Phone: [facility] Comment on above: Hand pain, left (Mona anjana Dx) Procedures Date Procedure Procedure Detail Performing Clinician Start: 07-02-2023 Radex hand minimum 3 views Emiliano Nancy CARBAJAL.QUALITY SYSTEMS ENGINEER Work Phone: Plan of Treatment Date Care Activity Detail Author Start: 09-09-2033 Urine microalbumin profile DTa P,Tdap,Td Vaccine (2 - Td or Tdap) [facility] Start: 02-05-2024 Covid-19 Vaccine () Covid-19 Vaccine () [facility] Start: 02-05-2024 [facility] Start: 06-06-2023 Behavioral Health Screening Behavioral Health Screening [facility] Start: 06-06-2023 Depression Assessment Depression Ass essment [facility] Start: 04-06-2023 HPV Vaccine (2 - Mal e 3-dose series) HPV Vaccine (2 - Male 3-dose series) [facility] Start: 02-04-2023 Covid-19 Vaccine () Covid-19 Vaccine () [facility] Start: 02-04-2023 Influenza vaccination Influenza Vacc ine (#1) [facility] Start: 01-19-2023 Hepatitis B Vaccine (1 of 3 - 19+ 3-dose series) Hepatitis B Vaccine (1 of 3 - 19+ 3-dose series) [facility] Start: 01-19-2023 Urine microalbumin profile DTa P,Tdap,Td Vaccine (1 - Tdap) [facility] Start: 01-19-2022 Anxiety Screening Anxiety Screening [facility] Start: 01-19-2022 Depression Screening Depression Scre ening [facility] Start: 01-19-2022 Hepatitis C screening Hepatitis C Sc reening [facility] Start: 01-19-2022 HIV screening HIV Screening [facility] Start: 2020 Meningococcal B Vacc ine: Consider Based On Risk (1 of 2 - Patient Seeks Protection) Meningococcal B Vaccine: Consider Based On Risk (1 of 2 - Patient Seeks Protection) [facility] Start: 01-19-2018 Peds To Adult Transi tion Annual Assessment Peds To Adult Transition Annual Assessment [facility] Start: 2016 Peds To Adult Transi tion Initial Discussion Peds To Adult Transition Initial Discussion [facility] Start: 2004 Covid-19 Vaccine (#1) Covid-19 Vacci ne (#1) [facility] Start: 2004 Hepatitis B Vaccine (1 of 3 - 3-dose series) Hepatitis B Vaccine (1 of 3 - 3-dose series) [facility] Immunizations Immunization Date Immunization Notes Care Provider Madai gao 09-10-2023 tetanus toxoid, redu caitlyn diphtheria toxoid, and acellular pertussis vaccine, adsorbed Renata Caballero APRN.QUALITY SYSTEMS ENGINEER Work Phone: [facility] 03-09-2023 Human Papillomavirus 9-valent vaccine Renata Caballero APRN.QUALITY SYSTEMS ENGINEER Work Phone: [facility] 03-08-2022 meningococcal polysaccharide (groups A, C, Y and W-135) diphtheria toxoid conjugate vaccine (MCV4P) Renata Caballero APRN.QUALITY SYSTEMS ENGINEER Work Phone: [facility] Payers Date Payer Category Payer Unknown [id number] 2023 Unknown PENDING 2023 Unknown [id number] 2020 Unknown [id number] 2020 Unknown [id number] 2004 Unknown [id number] 2004 Unknown [id number] Social History Date Type Detail Facility Start: 07-02-2023 Tobacco smoking stat us [facility] Never smoked tobacco [facility] Start: 07-02-2023 Tobacco use and exposure Smokeless tobacco non-user [facility] Start: 12-19-2020 End: 07-02-2023 History of Social function [facility] Start: 12-19-2020 End: 07-02-2023 Tobacco use panel [facility] National Score (1-100), lower number is lower risk Not on file [facility] Start: 2004 Sex Assigned At Not on file [facility] Tobacco smoking status No Smokin g Status Entered [facility] Sex Assigned At Male [facility] Clinical Notes 07-02-2023 to 02-10-2024 Patient Nella Ghotra - 09/10/2023 11:33 AM Emiliano Anderson APRN.QUALITY SYSTEMS ENGINEER - 07/02/2023 12:12 PM Emma Bundy RT(R) - 07/02/2023 11:50 AM EST Note Date & Type Note Facility 02-10-2024 Note If ancillary studies were utilized, the following Laboratory Developed Test (LDT) disclaimer will apply: Under CLIA requirements, [facility] is qualified to perform high complexity testing. For all ancillary stains, positive and negative controls stain appropriately. Performance characteristics of immunohistochemical and chromogenic in-situ hybridization tests have been determined by [facility]. These tests are used for clinical purposes, They should not be regarded as investigational or for research. [facility] 02-09-2024 Note If ancillary studies were utilized, the following Laboratory Developed Test (LDT) disclaimer will apply: Under CLIA requirements, [facility] is qualified to perform high complexity testing. For all ancillary stains, positive and negative controls stain appropriately. Performance characteristics of immunohistochemical and chromogenic in-situ hybridization tests have been determined by [facility]. These tests are used for clinical purposes, They should not be regarded as investigational or for research. [facility] 02-09-2024 Note If ancillary studies were utilized, the following Laboratory Developed Test (LDT) disclaimer will apply: Under CLIA requirements, [facility] is qualified to perform high complexity testing. For all ancillary stains, positive and negative controls stain appropriately. Performance characteristics of immunohistochemical and chromogenic in-situ hybridization tests have been determined by [facility]. These tests are used for clinical purposes, They should not be regarded as investigational or for research. [facility] 02-09-2024 Note If ancillary studies were utilized, the following Laboratory Developed Test (LDT) disclaimer will apply: Under CLIA requirements, [facility] is qualified to perform high complexity testing. For all ancillary stains, positive and negative controls stain appropriately. Performance characteristics of immunohistochemical and chromogenic in-situ hybridization tests have been determined by [facility]. These tests are used for clinical purposes, They should not be regarded as investigational or for research. [facility] 02-09-2024 Note If ancillary studies were utilized, the following Laboratory Developed Test (LDT) disclaimer will apply: Under CLIA requirements, [facility] is qualified to perform high complexity testing. For all ancillary stains, positive and negative controls stain appropriately. Performance characteristics of immunohistochemical and chromogenic in-situ hybridization tests have been determined by [facility]. These tests are used for clinical purposes, They should not be regarded as investigational or for research. [facility] 02-09-2024 Note If ancillary studies were utilized, the following Laboratory Developed Test (LDT) disclaimer will apply: Under CLIA requirements, [facility] is qualified to perform high complexity testing. For all ancillary stains, positive and negative controls stain appropriately. Performance characteristics of immunohistochemical and chromogenic in-situ hybridization tests have been determined by [facility]. These tests are used for clinical purposes, They should not be regarded as investigational or for research. [facility] 02-09-2024 Note If ancillary studies were utilized, the following Laboratory Developed Test (LDT) disclaimer will apply: Under CLIA requirements, [facility] is qualified to perform high complexity testing. For all ancillary stains, positive and negative controls stain appropriately. Performance characteristics of immunohistochemical and chromogenic in-situ hybridization tests have been determined by [facility]. These tests are used for clinical purposes, They should not be regarded as investigational or for research. [facility] 11-17-2023 Note If ancillary studies were utilized, the following Laboratory Developed Test (LDT) disclaimer will apply: Under CLIA requirements, [facility] is qualified to perform high complexity testing. For all ancillary stains, positive and negative controls stain appropriately. Performance characteristics of immunohistochemical and chromogenic in-situ hybridization tests have been determined by [facility]. These tests are used for clinical purposes, They should not be regarded as investigational or for research. [facility] 11-17-2023 Note If ancillary studies were utilized, the following Laboratory Developed Test (LDT) disclaimer will apply: Under CLIA requirements, [facility] is qualified to perform high complexity testing. For all ancillary stains, positive and negative controls stain appropriately. Performance characteristics of immunohistochemical and chromogenic in-situ hybridization tests have been determined by [facility]. These tests are used for clinical purposes, They should not be regarded as investigational or for research. [facility] 11-16-2023 Note If ancillary studies were utilized, the following Laboratory Developed Test (LDT) disclaimer will apply: Under CLIA requirements, [facility] is qualified to perform high complexity testing. For all ancillary stains, positive and negative controls stain appropriately. Performance characteristics of immunohistochemical and chromogenic in-situ hybridization tests have been determined by [facility]. These tests are used for clinical purposes, They should not be regarded as investigational or for research. [facility] 11-16-2023 Note If ancillary studies were utilized, the following Laboratory Developed Test (LDT) disclaimer will apply: Under CLIA requirements, [facility] is qualified to perform high complexity testing. For all ancillary stains, positive and negative controls stain appropriately. Performance characteristics of immunohistochemical and chromogenic in-situ hybridization tests have been determined by [facility]. These tests are used for clinical purposes, They should not be regarded as investigational or for research. [facility] 11-16-2023 Note If ancillary studies were utilized, the following Laboratory Developed Test (LDT) disclaimer will apply: Under CLIA requirements, [facility] is qualified to perform high complexity testing. For all ancillary stains, positive and negative controls stain appropriately. Performance characteristics of immunohistochemical and chromogenic in-situ hybridization tests have been determined by [facility]. These tests are used for clinical purposes, They should not be regarded as investigational or for research. [facility] 11-16-2023 Note If ancillary studies were utilized, the following Laboratory Developed Test (LDT) disclaimer will apply: Under CLIA requirements, [facility] is qualified to perform high complexity testing. For all ancillary stains, positive and negative controls stain appropriately. Performance characteristics of immunohistochemical and chromogenic in-situ hybridization tests have been determined by [facility]. These tests are used for clinical purposes, They should not be regarded as investigational or for research. [facility] 11-16-2023 Note If ancillary studies were utilized, the following Laboratory Developed Test (LDT) disclaimer will apply: Under CLIA requirements, [facility] is qualified to perform high complexity testing. For all ancillary stains, positive and negative controls stain appropriately. Performance characteristics of immunohistochemical and chromogenic in-situ hybridization tests have been determined by [facility]. These tests are used for clinical purposes, They should not be regarded as investigational or for research. [facility] 09-10-2023 Instructions Renata Caballero APRN.SAÚL - 09/10/2023 11:50 AM EDT ASSESSMENT/PLAN: 1. Laceration of right ring finger without foreign body without damage to nail, initial encounter - ICD9: 883.0, ICD10: S61.214A (primary diagnosis) - TDAP VACCINE, AGE 7+ YR (ADACEL, BOOSTRIX) 2. Laceration of left index finger without foreign body without damage to nail, initial encounter - ICD9: 883.0, ICD10: S61.211A documented in this encounter [facility] 09-10-2023 Note HNO ID: [id number] Author: RENATA CABALLERO APRN.QUALITY SYSTEMS ENGINEER Service: ? Author Type: ? Type: Progress Notes Filed: 09/10/2023 11:50 Note Text: Subjective Laceration Pt presents to clinic on September 10, 2023 for CC: requesting tetanus shot Last night patient was working on his truck and a ed shock absorber cut his right ring finger and left index finger It bled and then he cleaned it and bandaged it Some tenderness remains No fever, symptoms of infection including swelling, redness, oozing, etc. Is unsure if he has had a tetanus shot before Review of Systems Constitutional: Negative for fever. Musculoskeletal: Negative for joint pain. Skin: Negative for itching and rash. Neurological: Negative for sensory change and weakness. BP 102/62 Pulse 76 Temp 36.2 ?C (97.2 ?F) Resp 16 Wt 114 kg (251 lb 5.2 oz) SpO2 98% No past medical history on file. No past surgical history on file. ALLERGIES Iodine MEDICATIONS mometasone (ELOCON) 0.1 % ointment APPLY OINTMENT TOPICALLY TO AFFECTED AREA TWICE DAILY UNTIL RASH IS GONE FOR 3 DAYS loratadine (CLARITIN ORAL) Take by mouth. (Patient not taking: Reported on 07/02/2023) No family history on file. Social History Tobacco Use Smoking status: Never Smokeless tobacco: Never Objective Physical Exam Constitutional: General: He is not in acute distress. Appearance: Normal appearance. He is not ill-appearing, toxic-appearing or diaphoretic. Skin: General: Skin is warm. Coloration: Skin is not jaundiced or pale. Findings: Signs of injury and laceration present. No bruising, erythema, lesion or rash. Comments: Two lacerations- one on right ring finger and the other on left index finger Both lacerations are healing Neurological: Mental Status: He is alert and oriented to person, place, and time. Sensory: No sensory deficit. ASSESSMENT/PLAN: 1. Laceration of right ring finger without foreign body without damage to nail, initial encounter - ICD9: 883.0, ICD10: S61.214A (primary diagnosis) - TDAP VACCINE, AGE 7+ YR (ADACEL, BOOSTRIX) 2. Laceration of left index finger without foreign body without damage to nail, initial encounter - ICD9: 883.0, ICD10: S61.211A JENSEN Garcia TEACHING PROVIDER (Physician/PA/SITE MANAGER) NOTE OF PERSONAL INVOLVEMENT IN CARE: I have personally seen and examined the patient and performed the medical decision-making components. I have reviewed the Advanced Practice Registered Nurse (SITE MANAGER) Student's documentation and verified the findings in the note as written. Any additions or changes are noted in bold/italics. Signature: Renata Caballero Date: 09/10/2023 Time: 11:49 AM [facility] 09-10-2023 History of Present illness Narrative Images from the original note were not included. Subjective Laceration Pt presents to clinic on September 10, 2023 for CC: requesting tetanus shot Last night patient was working on his truck and a ed shock absorber cut his right ring finger and left index finger It bled and then he cleaned it and bandaged it Some tenderness remains No fever, symptoms of infection including swelling, redness, oozing, etc. Is unsure if he has had a tetanus shot before Review of Systems Constitutional: Negative for fever. Musculoskeletal: Negative for joint pain. Skin: Negative for itching and rash. Neurological: Negative for sensory change and weakness. BP 102/62 Pulse 76 Temp 36.2 C (97.2 F) Resp 16 Wt 114 kg (251 lb 5.2 oz) SpO2 98% No past medical history on file. No past surgical history on file. ALLERGIES Iodine MEDICATIONS mometasone (ELOCON) 0.1 % ointment APPLY OINTMENT TOPICALLY TO AFFECTED AREA TWICE DAILY UNTIL RASH IS GONE FOR 3 DAYS loratadine (CLARITIN ORAL) Take by mouth. (Patient not taking: Reported on 07/02/2023) No family history on file. Social History Tobacco Use Smoking status: Never Smokeless tobacco: Never Objective Physical Exam Constitutional: General: He is not in acute distress. Appearance: Normal appearance. He is not ill-appearing, toxic-appearing or diaphoretic. Skin: General: Skin is warm. Coloration: Skin is not jaundiced or pale. Findings: Signs of injury and laceration present. No bruising, erythema, lesion or rash. Comments: Two lacerations- one on right ring finger and the other on left index finger Both lacerations are healing Neurological: Mental Status: He is alert and oriented to person, place, and time. Sensory: No sensory deficit. ASSESSMENT/PLAN: 1. Laceration of right ring finger without foreign body without damage to nail, initial encounter - ICD9: 883.0, ICD10: S61.214A (primary diagnosis) - TDAP VACCINE, AGE 7+ YR (ADACEL, BOOSTRIX) 2. Laceration of left index finger without foreign body without damage to nail, initial encounter - ICD9: 883.0, ICD10: S61.211A JENSEN Garcia TEACHING PROVIDER (Physician/PA/SITE MANAGER) NOTE OF PERSONAL INVOLVEMENT IN CARE: I have personally seen and examined the patient and performed the medical decision-making components. I have reviewed the Advanced Practice Registered Nurse (SITE MANAGER) Student's documentation and verified the findings in the note as written. Any additions or changes are noted in bold/italics. Signature: Renata Caballero Date: 09/10/2023 Time: 11:49 AM documented in this encounter [facility] 07-02-2023 Note HNO ID: [id number] Author: EMILIANO CRUZ APRN.QUALITY SYSTEMS ENGINEER Service: ? Author Type: Nurse Practitioner Type: [...] of care. This note was generated using Likeeds software. It may contain errors in wording, punctuation, or spelling. Emiliano Cruz APRN.[facility] 07-02-2023 History of Present illness Narrative Subjective HPI Nontoxic-appearing male presents [...] of care. This note was generated using Likeeds software. It may contain errors in wording, punctuation, or spelling. 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: No RADIOLOGY DEPARTMENT: General X-ray: Exam(s) Completed: Upper Extremity X-Ray(s): Hand, left PERIPHERAL IV DATA: Not applicable SIGNED BY: RT Sneha(R) July 02, 2023 12:07 PM documented in this encounter [facility] 07-02-2023 Note HNO ID: [id number] Author: EMMA PEDERSON RT(Blas) Service: Radiology Author Type: Technologist Type: Progress Notes Filed: 07/02/2023 12:12 Note Text: Radiology Service Progress Note PATIENT NAME: Arnol Morris DATE OF SERVICE: July 02, 2023 TIME: [...] PATIENT PRESENTS WITH AN IMPLANTABLE OR ATTACHED ABRASIVE GRADER HELPER: No RADIOLOGY DEPARTMENT: General X-ray: Exam(s) Completed: Upper Extremity X-Ray(s): Hand, left PERIPHERAL IV DATA: Not applicable SIGNED BY: RT Sneha(R) July 02, 2023 12:07 PM [facility] Evaluation + Plan note No data available for this section [facility] Evaluation note Diagnosis Hand pain, left- Primary Pain in limb [facility] Laceration of right ring finger without foreign body without damage to nail, initial encounter- Primary Laceration of left index finger without foreign body without damage to nail, initial encounter [facility] Diagnosis Hand pain, left Pain in limb [facility] No data available for this section [facility] Reason for referral (narrative)* Diagnostic Procedure Only (Urgent) - Closed Specialty Diagnoses / Procedures Referred By Contac t Referred To Contact XR IMAGING Diagnoses Hand pain, left Procedures XR HAND GENERAL 3V PA/LAT/OBL LEFT RADEX HAND MINIMUM 3 VIEWS Emiliano Cruz APRN.CNP [address] [place] [address] [place] [address] Referral ID Status Reason Start Date Expiration Date V isits Requested Visits Authorized [id number] Closed Auto-Generate d Referral 07/02/2023 07/31/2024 1 1 [facility] for referral (narrative)* Diagnostic Procedure Only (Urgent) - Closed Specialty Diagnoses / Procedures Referred By Contac t Referred To Contact XR IMAGING Diagnoses Hand pain, left Procedures XR HAND GENERAL 3V PA/LAT/OBL LEFT RADEX HAND MINIMUM 3 VIEWS Emiliano Cruz APRN.QUALITY SYSTEMS ENGINEER [address] [place] [id number] [place] [address] Referral ID Status Reason Start Date Expiration Date V isits Requested Visits Authorized [id number] Closed Auto-Generate d Referral 07/02/2023 07/31/2024 1 1 [facility] for visit Narrative* Diagnostic Procedure Only (Urgent) - Closed Specialty Diagnoses / Procedures Referred By Contac t Referred To Contact XR IMAGING Diagnoses Hand pain, left Procedures XR HAND GENERAL 3V PA/LAT/OBL LEFT RADEX HAND MINIMUM 3 VIEWS Emiliano Cruz APRN.QUALITY SYSTEMS ENGINEER [address] [place] [address] [place] [address] Referral ID Status Reason Start Date Expiration Date V isits Requested Visits Authorized [id number] Closed Auto-Generate d Referral 07/02/2023 07/31/2024 1 1 [facility] Summary Purpose Family History No Family History Records Found Advance Directives No Advanced Directives Records FoundNo Advanced Directives Records FoundNo Advanced Directives Records Found Additional Source Comments Source Comments (unrecognize d section and content) In the event this informatio n is protected by the Federal Confidentiality of Alcohol and Drug Abuse Patient Records regulations: The Federal rules restrict any use of the information to criminally investigate or prosecute any alcohol or drug abuse patient.[facility] the event this information is protected by the Federal Confidentiality of Alcohol and Drug Abuse Patient Records regulations: The Federal rules restrict any use of the information to criminally investigate or prosecute any alcohol or drug abuse patient.[facility] the event this information is protected by the Federal Confidentiality of Alcohol and Drug Abuse Patient Records regulations: The Federal rules restrict any use of the information to criminally investigate or prosecute any alcohol or drug abuse patient.[facility] Reason for Visit (unrecogniz ed section and content) Reason Comments Bwc (Worker's Comp) L hand thumb injury x1 day Reason Comments Laceration small 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 hands from working on ed truck Patient Care team informatio n (unrecognized section and content) Care Team Related Persons Name: TAMAR MORRIS Address: Home [address] [place] [address] Name: MARILIA BRAUN Address: [place] [address] [place] [address] Care Team Related Persons Name: TAMAR MORRIS Address: [place] [address] Name: MARILIA BRAUN Address: [address] (unrecognized sect ion and content) No Status Records FoundNo Status Records FoundNo Status Records Found INFORMATION SOURCE (unrecogn ized section and content) DATE CREATED AUTHOR 12/11/2023 [facility] DATE CREATED AUTHOR AUTHOR'S ORGANIZ ATION 02/09/2024 [facility] ([place]) DATE CREATED AUTHOR AUTHOR'S ORGANIZ ATION 02/12/2024 [facility] FOR RECORDS PERTAINING TO PATIENTS WHO ARE [...] BE BASED ON THE PRIMARY CLINICAL RECORDS. [facility] [employer] [facility]. provides no warranty or guarantee of the accuracy or completeness of information in this document.
--- NOTE | 2024-03-29 23:23 | EDS_ITS ---
HPI History of Present Illness HPI Narrative: Patient presents with left knee injury that occurred today while he was at work. Patient states that a metal bar fell and hit him on his leg. Patient states the bar weighed approximately 100 pounds. Patient states the pain is mostly over the anterior aspect of the left knee. Patient describes the pain as sharp and throbbing. Patient states it is worse with flexion of his knee. Patient denies any paresthesias or weakness. Patient denies any other injuries. Patient states his last tetanus was less than 5 years ago. Chief Complaint: Lower Extremity Injury Informant: patient Occured/Mechanism Mechanism/Context: Yes blunt trauma Onset/Context/Timing Onset: Today Context: Sudden Onset Timing: Continuous Quality of Pain: Sharp (With flexion) and Throbbing Location: Left knee Worsened by: Flexion of the left knee Relieved by: Nothing Associated Symptoms Associated Symptoms: Negative for Parasthesia, Weakness or Loss of Funtion Narrative Tetanus Immunization: <5 years [facility] Medical History (Updated 03/29/24 @ 23:[address] Roderick Chan DO) GERD (gastroesophageal reflux disease) Colitis Home Medications ?Medication ?Instructions ?Recorded ?Last Taken ?Type famotidine 40 mg tablet 40 mg PO DAILY 03/29/24 Unknown History Allergy/AdvReac Type Severity Reaction Status Date / Time iodine Allergy Other Verified 03/29/24 21:50 Family History (Reviewed 05/12/22 @ 07:59 by Linn Chi SCHOOL PSYCHOLOGICAL EXAMINER, SCHOOL PSYCHOLOGICAL EXAMINER-C) Father Asthma Surgical History No pertinent past surgical history no surgical history Social History Smoking Status: Never smoker ROS ROS ED Constitutional Constitutional ED: Denies chills or fever(s) Eyes Eyes: Denies blurry vision or change in vision ENT ENT ED: Denies rhinorrhea or sore throat Cardiovascular Cardiovascular: Denies chest pain or palpitations Respiratory/Chest Respiratory/Chest: Denies cough or dyspnea Gastrointestinal Gastrointestinal: Denies nausea or vomiting Genitourinary Genitourinary ED: Denies dysuria or hematuria Musculoskeletal Musculoskeletal: Reports back pain; Denies neck pain Integumentary Denies abscess or rash Neurologic Neurologic: Denies headache(s) or weakness Allergic/Immunologic Allergic/Immunologic ED: Denies mouth swelling or urticaria EXAM Physical Exam Const Vital Signs: 03/29/24 21:47 Temperature 96.8 F L Temperature Source Temporal Pulse Rate 66 Respiratory Rate 16 Blood Pressure 129/73 H Blood Pressure Mean 91 Pulse Ox 99 Oxygen Delivery Method Room Air Positive well nourished and well developed General Appearance ED: well developed and NAD HEENT Reports moist mucous membranes Neck full ROM and supple Extremity Extremity Narrative: There is tenderness of the anterior aspect of the left knee just above the patella. There is some edema and ecchymosis. There is a very superficial abrasion. There is no bleeding noted. There is somewhat limited range of motion of flexion of the left knee secondary to pain. Extensor mechanism is intact. Strength is 5/5 bilaterally in the lower extremities. There are no sensory deficits noted. Neuro oriented x3, CN's II-XII intact bilaterally, moves all extremities and no sensory deficits noted Sensorium / Orientation: alert Motor Exam: strength 5/5 throughout MDM MDM MDM Narrative Medical decision making narrative: Differential diagnosis includes fracture, contusion, and sprain. X-rays of the left knee will be obtained to assess for fracture. Radiography Diagnostic Testing: Clinical Impression(s) from Imaging Studies Knee X-Ray 03/29/24 22:00 IMPRESSION: Negative. Electronically Signed: Horacio Armando DO at 22:26 EDT Reading Location ID and State: [facility] / [place] Tel [phone], Service support , X-rays of the left knee were obtained. There are 4 views. On my independent interpretation, there is no acute fracture. There is no soft tissue swelling noted. Radiologist also interpreted the x-rays and agrees. Treatment and Re-Evaluation Narrative: Patient was advised of his findings. Patient was advised that this is most likely contusion. Patient instructed use ice to the area. Patient was instructed to take Tylenol or ibuprofen as needed for pain. Patient was instructed to follow-up with his primary care physician or the [facility] in 5 to 7 days. Patient understood and was agreeable with the plan. All questions were answered. Discharge Plan Triage Chief Complaint: Lower Extremity Injury ED Provider: Roderick Chan Dx/Rx/DC Orders Clinical Impression: Contusion of left knee, initial encounter, Body mass index (BMI) of 30 to 39 in adult Instructions: ED Contusion, Lower Extremity Prescriptions: No Action famotidine 40 mg tablet 40 mg PO DAILY Stand Alone Forms: Work Status Form Primary Care Provider: Roderick Argueta Referrals: Roderick Argueta MD [Primary Care Provider] - 5-7 Days [facility] [Non-Staff] - 5-7 Days Print Language: Malay Disposition Disposition: Home, Self Care
== END 2024-03-29 23:38 | disposition home or self-care (01) ==
PROVIDERS: Emergency Provider Emergency Medicine; PCP Family Medicine; Visit Provider Emergency Medicine
DX: S80.02XA Contusion of left knee, initial encounter (principal); W20.8XXA Other cause of strike by thrown, projected or falling object, initial encounter; Y99.0 Civilian activity done for income or pay; K21.9 Gastro-esophageal reflux disease without esophagitis
CPT/HCPCS: 73564; 99282

== ENCOUNTER → 2024-05-23 | Outpatient (CLI) | payer OTHER, BC, SELFPAY ==
[2024-05-25 16:08] LABS: Endomysial Antibody IgA Negative (Negative); Immunoglobulin A 162 mg/dL (90-386); t-Transglutaminase IgA <2 U/mL (0-3)
== END | disposition home or self-care (01) ==
LOC: MFPLAB 12:23
PROVIDERS: PCP Family Medicine; Visit Provider Internal Medicine Gastroenterology
DX: R19.7 Diarrhea, unspecified (principal)
CPT/HCPCS: 36415; 82784; 83516; 86255

== ENCOUNTER → 2024-05-25 | Outpatient (CLI) | payer OTHER, BC, SELFPAY ==
[2024-05-29 14:07] LABS: Calprotectin, Stool 15 ug/g (0-120)
== END | disposition home or self-care (01) ==
PROVIDERS: PCP Family Medicine; Referring Provider Internal Medicine Gastroenterology; Visit Provider Internal Medicine Gastroenterology
DX: R19.7 Diarrhea, unspecified (principal)
CPT/HCPCS: 83993

== ENCOUNTER → 2024-06-12 | Outpatient (CLI) | payer OTHER, BC, SELFPAY ==
[2024-06-17 06:37] LABS: Alternaria tenuis <0.10 kU/L (Class 0); Ash, White <0.10 kU/L (Class 0); Aspergillus fumigatus <0.10 kU/L (Class 0); Beef <0.10 kU/L (Class 0); Bermuda Grass <0.10 kU/L (Class 0); Birch <0.10 kU/L (Class 0); Black Walnut <0.10 kU/L (Class 0); Cat Hair / Dander,Stand <0.10 kU/L (Class 0); Cedar, Mountain <0.10 kU/L (Class 0); Chicken <0.10 kU/L (Class 0); Chocolate <0.10 kU/L (Class 0); Cladosporium herbarum <0.10 kU/L (Class 0); Cockroach, American <0.10 kU/L (Class 0); Codfish <0.10 kU/L (Class 0); Corn <0.10 kU/L (Class 0); Cottonwood <0.10 kU/L (Class 0); D farinae Mite <0.10 kU/L (Class 0); D pteronyssinus <0.10 kU/L (Class 0); Dog Epithelia <0.10 kU/L (Class 0); Egg, Whole <0.10 kU/L (Class 0); Elm, American White <0.10 kU/L (Class 0); Immunoglobulin E < 2 IU/mL (6-495); Maple/Box Elder <0.10 kU/L (Class 0); Milk (Cow) <0.10 kU/L (Class 0); Mouse Urine <0.10 kU/L (Class 0); Mulberry, White <0.10 kU/L (Class 0); Mussels <0.10 kU/L (Class 0); Oak, White <0.10 kU/L (Class 0); Peanut <0.10 kU/L (Class 0); Pecan <0.10 kU/L (Class 0); Penicillium Notatum <0.10 kU/L (Class 0); Pigweed, Rough <0.10 kU/L (Class 0); Pork <0.10 kU/L (Class 0); Ragweed, Short/Common <0.10 kU/L (Class 0); Russian Thistle <0.10 kU/L (Class 0); Salmon <0.10 kU/L (Class 0); Sheep Sorrel <0.10 kU/L (Class 0); Shrimp <0.10 kU/L (Class 0); Soybean <0.10 kU/L (Class 0); Sycamore, American <0.10 kU/L (Class 0); Timothy Grass <0.10 kU/L (Class 0); Tuna <0.10 kU/L (Class 0); Wheat <0.10 kU/L (Class 0)
== END | disposition home or self-care (01) ==
LOC: MFPLAB 16:18
PROVIDERS: PCP Family Medicine; Referring Provider Family Medicine; Visit Provider Family Medicine
DX: K58.9 Irritable bowel syndrome, unspecified (principal)
CPT/HCPCS: 36415; 82785; 86003; 86005

== ENCOUNTER 2025-02-10 11:51 | Emergency (ER) | payer OTHER, BC, SELFPAY ==
[2025-02-10 11:52] VITALS: BP 123/69; PULSE 56; RESP 16; TEMP 36.8; O2SAT 98
--- NOTE | 2025-02-10 12:05 | EDS_ITS ---
HPI History of Present Illness Chief Complaint: Back Informant: patient and spouse/S.O. Narrative Narrative: 20-year-old presenting for severe pain in his left low back. He states they are moving and packing up totes and boxes right now, and yesterday morning he bent over to do that and all of a sudden had some pain in his left low back, when he stood up he became much more severe and felt like it locked up on him. With certain positions he is more comfortable, but that is basically with lying recumbent at about a 45 degree angle. Lying flat is better, but any movement hurts and does not radiate down to his foot. He has had no bowel or bladder dysfunction. He is had some discomfort maybe some tingling going into the left thigh but no symptoms down to the knee or further. No direct injury. He has had some spasms of this area on occasion in his low back. 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, [employer] PR[employer] OPERATOR [employer]OM[employer]-C) Father Asthma Surgical History No pertinent past surgical history Social History Smoking Status: Never smoker ROS ROS ED Constitutional Constitutional ED: Denies chills or fever(s) Gastrointestinal Gastrointestinal: Denies abdominal pain, constipation, fecal incontinence, nausea or vomiting Genitourinary Genitourinary ED: Reports other Details: no urinary retention ; Denies abdominal discomfort or urinary incontinence Musculoskeletal Musculoskeletal: Reports as per HPI and back pain; Denies neck pain Integumentary Denies rash or wounds Neurologic Neurologic: Denies headache(s), paresthesias or weakness EXAM Physical Exam Const Vital Signs: 02/10/25 11:52 Temperature 98.2 F Temperature Source Temporal Pulse Rate 56 L Respiratory Rate 16 Blood Pressure 123/69 H Blood Pressure Mean 87 Pulse Ox 98 Oxygen Delivery Method Room Air Positive well nourished and well developed General Appearance ED: well developed and NAD HEENT Negative for trauma or tenderness Eyes PERRL and EOMs intact bilaterally Neck full ROM and supple GI normal to inspection, nondistended, normoactive bowel sounds, soft to palpation and non-tender Back/Spine normal to inspection Back/Spine Narrative: Straight leg raises are negative, but the left straight leg raise is extremely limited, as the patient only allows me to lift his leg about 10 degrees due to pain in his back only. Lumbar Spine / Lower Back: ROM limited, paraspinal muscle tenderness left and straight leg raise negative bilaterally; Negative for lumbar spinal tenderness Extremity normal to inspection, full ROM and no pedal edema Neuro oriented x3 and no sensory deficits noted Sensorium / Orientation: alert Motor Exam: strength 5/5 throughout and clonus absent Deep Tendon Reflexes: Rt Patellar (L4): 2+, Lt Patellar (L4): 2+, Rt Ankle (S1): 2+ and Lt Ankle (S1): 2+ Deep Tendon Reflexes Back: Rt Patellar (L4): 2+, Lt Patellar (L4): 2+, Rt Ankle (S1): 2+ and Lt Ankle (S1): 2+ Psych mental status grossly normal and thought process normal Skin no rashes or lesions noted and no wounds MDM MDM MDM Narrative Medical decision making narrative: This is all consistent with lumbar myofascial strain. I do not think he needs emergent radiography for any reason, I am not suspicious that he fractured anything given his age and health and the fact that he really does not have any significant tenderness in the midline. He is not extremely tender at all, but it is mostly with movement that he starts to have pain in a tall unilateral and without radicular symptoms. Supportive care advised, he was given Toradol, morphine, Norflex here as well as prescriptions for Naprosyn and cyclobenzaprine to use at home as needed, he has an appointment with his primary care scheduled for later this month, we discussed reasons to return to the ER. Discharge Plan Triage Chief Complaint: Back ED Provider: Rommel Bal Dx/Rx/DC Orders Clinical Impression: Acute lumbar myofascial strain, Spasm of muscle of lower back Instructions: ED Back Sprain/Strain Prescriptions: New cyclobenzaprine 10 mg tablet 10 mg PO TID PRN (Reason: Muscle Spasm) Qty: 20 0RF naproxen 500 mg tablet 500 mg PO BID PRN (Reason: pain) Qty: 14 0RF No Action famotidine 40 mg tablet 40 mg PO DAILY Primary Care Provider: Roderick Argueta Referrals: Roderick Argueta MD [Primary Care Provider] - Print Language: [place] Islander Disposition Disposition: Home, Self Care
[2025-02-10 12:17] VITALS: BP 125/71; PULSE 52; RESP 16; TEMP 37.1; O2SAT 99
--- OUTSIDE RECORDS SUMMARY | 2025-02-10 12:17 | XMS RPT_ITS | CCD ---
Author Organization [facility] ion Partnership [facility] Care Team Providers Care Intermediate Manager Name Role Phone Dr. Roderick Argueta Primary Care Provider Dr. Roderick Argueta Referring Provider Alon WEB MASTER, KUSHAL Esteves Attending Provider [phone] Unavailable Primary Care Provider Dr. Roderick Whiteside Primary Care Provider Dr. Roderick Argueta Referring Provider [phone] Flaco Quispe Attending Provider RENATA CABALLERO Attending Unavailable VLADIMIR CRUZ Referring Unavailable ARMANDO BELLA, DR MCARTHUR Attending Unavailjean claude ROBERTS MD, DR MCARTHUR Attending Unavailjean claude ROBERTS MD, DR MCARTHUR Attending Unavailabl e Unavailable Primary Care Provider Unavailabl e Argueta, Roderick Primary Care Unavailable Schwiger, Roderick Attending Unavailable Schwiger, Roderick Attending Unavailable Argueta, Roderick Primary Care Unavailable Medhat Miller Attending Unavailable Argueta, Roderick Primary Care Unavailable Chente Roberts Attending Unavailable Argueta, Roderick Primary Care Unavailable Chente Roberts Attending Unavailable SharathbourChente Referring Unavailable Argueta, Roderick Primary Care Unavailable Argueta, Roderick Attending Unavailable Argueta, Roderick Referring Unavailable Argueta, Roderick Primary Care Unavailable Chente Roberts Consulting Unavailable Argueta, Roderick Primary Care Unavailable Argueta, Roderick Attending Unavailable Argueta, Roderick Referring Unavailable JabourChente Attending Unavailable Jabour, Vincent Referring Unavailable Argueta, Roderick Primary Care Unavailable Allergies Allergy Classification Reported Allergen(s) Allergy Type Date of Onset Reaction(s) Facility (8 sources) Iodine; Translations: [IODINE] Drug Allergy 2 Other: See Comments [facility] (1 source) Iodine Drug Allergy [facility] Repository Medications Current Medications Medication Drug Class(es) Dates Sig (Normalized) Sig (Original) Loratadine (3 sources) loratadine (CLAR ITIN ORAL) Take by mouth. Active loratadine (CLAR ITIN ORAL) Take by mouth. 0 Active Comment on above: Take by mouth. Completed/Discontinued Medications Medication Drug Class(es) Dates Sig (Normalized) Sig (Original) [id number] actuat albuterol 0.09 mg/actuat metered dose inhaler (20 sources) beta2-Adrenergic Agonist Start: 03-04-2020 End: 05-11-2023 take 1 puff(s) by inhalation every four hours Albuterol Sulfate (Ventolin Hfa) 90 mcg/actuation HFA aerosol inhaler Discontinued 2 PUFF INHALATION Q4H 18 May 12, 2022 9:01am May 11, 2023 8:58am mometasone furoate 0.001 mg/mg topical ointment (1 [...] Classification Problem Date Documented Da te Episodic/Chronic Asthma (6 sources) Asthma; Translations: [Unspecified asthma, uncomplicated] 05-11-2023 Chronic Esophageal disorders (2 sources) Gastro-esophageal reflux disease without esophagitis; Translations: [Gastro-esophageal reflux disease without esophagitis] Onset: 11-15-2023 Chronic [...] left hand] 07-02-2023 Episodic Other gastrointestinal disorders (1 source) Irritable bowel syndrome without diarrhea; Translations: [Irritable bowel syndrome, unspecified] Onset: 09-04-2024 Chronic Other gastrointestinal disorders (5 sources) Diarrhea, unspecified; Translations: [Diarrhea, unspecified] Onset: 02-07-2024 Episodic Other injuries and conditions due to external causes (5 sources) Bañuelos injury; Translations: [Unspecified injury of unspecified lower leg, initial encounter] 11-16-2021 Episodic Other injuries and conditions due to external causes (5 sources) Abrasion; Translations: [Other injury of unspecified body region, initial encounter] 11-16-2021 Episodic Other screening for suspected conditions (not [...] parts of digestive tract] Onset: 02-07-2024 Episodic Other upper respiratory disease (5 sources) 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; Translations: [Other allergic rhinitis] 05-19-2020 Chronic Regional enteritis and ulcerative colitis (1 source) Ulcerative (chronic) pancolitis without complications; Translations: [Ulcerative (chronic) pancolitis without complications] Onset: 01-28-2024 Chronic Residual codes; unclassified (5 sources) History finding; Translations: [Other specified health status] 03-04-2020 Episodic Past or Other Problems Problem Classification Problem Date Documented Da te Episodic/Chronic Abdominal pain (1 source) Unspecified abdominal pain; Translations: [Unspecified abdominal pain] Onset: 03-05-2024 Episodic Other connective tissue disease (1 source) Pain in left hand; Translations: [Hand pain, left] Onset: 07-02-2023 Episodic Other injuries and conditions due to external causes (1 source) Other specified injuries of left lower leg, initial encounter; Translations: [Other specified injuries of left lower leg, initial encounter] Onset: 05-09-2024 Episodic Results Test Name Value Interpretation Reference Range Facility Allergen Resp. Area 506-06 ALTERNARIA TEN <0.10 Normal Class 0 [facility] Comment on above: Performed By: #### L 5500.0550, L5500.0700, L5530.0399 #### [facility] [address] [place], [address] DANYELLE, WHITE <0.10 Normal Class 0 [facility] Comment on above: Performed By: #### L 5500.0550, L5500.0700, L5530.0399 #### [facility] [address] [place], [address] ASPERGILLUS FUM <0.10 Normal Class 0 [facility] Comment on above: Performed By: #### L 5500.0550, L5500.0700, L5530.0399 #### [facility] [address] [place], [address] BERMUDA GRASS <0.10 Normal Class 0 [facility] Comment on above: Performed By: #### L 5500.0550, L5500.0700, L5530.0399 #### [facility] [address] [place], [address] BIRCH <0.10 Normal Class 0 [facility] Comment on above: Performed By: #### L 5500.0550, L5500.0700, L5530.0399 #### [facility] [address] [place], [address] BLACK WALNUT <0.10 Normal Class 0 [facility] Comment on above: Performed By: #### L 5500.0550, L5500.0700, L5530.0399 #### [facility] [address] [place], [address] CAT HAIR/DANDER <0.10 Normal Class 0 [facility] Comment on above: Performed By: #### L 5500.0550, L5500.0700, L5530.0399 #### [facility] [address] [place], [address] CLADOSPOR HERB <0.10 Normal Class 0 [facility] Comment on above: Performed By: #### L 5500.0550, L5500.0700, L5530.0399 #### [facility] [address] [place], [address] COCKROACH,AMER <0.10 Normal Class 0 [facility] Comment on above: Performed By: #### L 5500.0550, L5500.0700, L5530.0399 #### [facility] [address] [place], [address] COTTONWOOD <0.10 Normal Class 0 [facility] Comment on above: Performed By: #### L 5500.0550, L5500.0700, L5530.0399 #### [facility] [address] [place], [address] D FARINAE MITE <0.10 Normal Class 0 [facility] Comment on above: Performed By: #### L 5500.0550, L5500.0700, L5530.0399 #### [facility] [address] [place], [address] D PTERONYSSINUS <0.10 Normal Class 0 [facility] Comment on above: Performed By: #### L 5500.0550, L5500.0700, L5530.0399 #### [facility] [address] [place], [address] DOG EPITHELIA <0.10 Normal Class 0 [facility] Comment on above: Performed By: #### L 5500.0550, L5500.0700, L5530.0399 #### [facility] [address] [place], [address] ELM,AMER WHITE <0.10 Normal Class 0 [facility] Comment on above: Performed By: #### L 5500.0550, L5500.0700, L5530.0399 #### [facility] [address] [place], [address] IMMUNOGLOB E < 2 Low 6-495 [facility] Comment on above: Performed By: #### L 5500.0550, L5500.0700, L5530.0399 #### [facility] [address] [place], [address] MAPLE/BOX ELDER <0.10 Normal Class 0 [facility] Comment on above: Performed By: #### L 5500.0550, L5500.0700, L5530.0399 #### [facility] [address] [place], [address] MOUNTAIN CEDAR <0.10 Normal Class 0 [facility] Comment on above: Performed By: #### L 5500.0550, L5500.0700, L5530.0399 #### [facility] [address] [place], [address] Mouse Urine <0.10 Normal Class 0 [facility] Comment on above: Performed By: #### L 5500.0550, L5500.0700, L5530.0399 #### [facility] [address] [place], [address] MULBERRY,WHITE <0.10 Normal Class 0 [facility] Comment on above: Performed By: #### L 5500.0550, L5500.0700, L5530.0399 #### [facility] [address] [place], [address] OAK, WHITE <0.10 Normal Class 0 [facility] Comment on above: Performed By: #### L 5500.0550, L5500.0700, L5530.0399 #### [facility] [address] [place], [address] PECAN <0.10 Normal Class 0 [facility] Comment on above: Performed By: #### L 5500.0550, L5500.0700, L5530.0399 #### [facility] [address] [place], [address] PEN NOTATUM <0.10 Normal Class 0 [facility] Comment on above: Performed By: #### L 5500.0550, L5500.0700, L5530.0399 #### [facility] [address] [place], [address] PIGWEED, ROUGH <0.10 Normal Class 0 [facility] Comment on above: Performed By: #### L 5500.0550, L5500.0700, L5530.0399 #### [facility] [address] [place], [address] RAGWEED SH/COM <0.10 Normal Class 0 [facility] Comment on above: Performed By: #### L 5500.0550, L5500.0700, L5530.0399 #### [facility] [address] [place], [address] SOUTH SUDANESE THISTLE <0.10 Normal Class 0 [facility] Comment on above: Performed By: #### L 5500.0550, L5500.0700, L5530.0399 #### [facility] [address] [place], [address] SHEEP SORREL <0.10 Normal Class 0 [facility] Comment on above: Performed By: #### L 5500.0550, L5500.0700, L5530.0399 #### [facility] [address] [place], [address] SYCAMORE, AMER <0.10 Normal Class 0 [facility] Comment on above: Performed By: #### L 5500.0550, L5500.0700, L5530.0399 #### [facility] [address] [place], [address] DONALD GRASS <0.10 Normal Class 0 [facility] Comment on above: Performed By: #### L 5500.0550, L5500.0700, L5530.0399 #### [facility] [address] [place], [address] Chickenon 06-17-2024 CHICKEN <0.10 Normal Class 0 [facility] Comment on above: Result Comment: Perf ormed at: [facility] [address] [id number] [address] [employer] Press: Kayleigh Mcadams MD, Phone: [phone] Performed By: #### L 5500.0550, L5500.0700, L5530.0399 #### [facility] [address] [place], [address] L5500.0550on 06-17-2024 BEEF <0.10 Normal Class 0 [facility] Comment on above: Performed By: #### L 5500.0550, L5500.0700, L5530.0399 #### [facility] [address] [place], [address] CHOCOLATE <0.10 Normal Class 0 [facility] Comment on above: Performed By: #### L 5500.0550, L5500.0700, L5530.0399 #### [facility] [address] [place], [address] CODFISH <0.10 Normal Class 0 [facility] Comment on above: Performed By: #### L 5500.0550, L5500.0700, L5530.0399 #### [facility] [address] [place], [address] COMMENT Comment Normal . [facility] Comment on above: Result Comment: Yue rollins of Specific IgE Class Description of Class ----- < 0.10 0 Negative 0.10 - 0.31 0/I Equivocal/Low 0.32 - 0.55 I Low 0.56 - 1.40 II Moderate 1.41 - 3.90 III High 3.91 - 19.00 IV Very High 19.01 - 100.00 V Very High >100.00 Very High Performed By: #### L 5500.0550, L5500.0700, L5530.0399 #### [facility] [address] [place], [address] CORN <0.10 Normal Class 0 [facility] Comment on above: Performed By: #### L 5500.0550, L5500.0700, L5530.0399 #### [facility] [address] [place], [address] EGG, WHOLE <0.10 Normal Class 0 [facility] Comment on above: Performed By: #### L 5500.0550, L5500.0700, L5530.0399 #### [facility] [address] [place], [address] MILK (COW) <0.10 Normal Class 0 [facility] Comment on above: Performed By: #### L 5500.0550, L5500.0700, L5530.0399 #### [facility] [address] [place], [address] MUSSELS <0.10 Normal Class 0 [facility] Comment on above: Performed By: #### L 5500.0550, L5500.0700, L5530.0399 #### [facility] [address] [place], [address] PEANUT <0.10 Normal Class 0 [facility] Comment on above: Performed By: #### L 5500.0550, L5500.0700, L5530.0399 #### [facility] [address] [place], [address] PORK <0.10 Normal Class 0 [facility] Comment on above: Performed By: #### L 5500.0550, L5500.0700, L5530.0399 #### [facility] [address] [place], [address] SALMON <0.10 Normal Class 0 [facility] Comment on above: Performed By: #### L 5500.0550, L5500.0700, L5530.0399 #### [facility] [address] [place], [address] SHRIMP <0.10 Normal Class 0 [facility] Comment on above: Performed By: #### L 5500.0550, L5500.0700, L5530.0399 #### [facility] [address] [place], [address] SOYBEAN <0.10 Normal Class 0 [facility] Comment on above: Performed By: #### L 5500.0550, L5500.0700, L5530.0399 #### [facility] [address] [place], [address] TUNA <0.10 Normal Class 0 [facility] Comment on above: Performed By: #### L 5500.0550, L5500.0700, L5530.0399 #### [facility] [address] [place], [address] WHEAT <0.10 Normal Class 0 [facility] Comment on above: Performed By: #### L 5500.0550, L5500.0700, L5530.0399 #### [facility] [address] [place], [address] Calprotectin, Stoolon [address] 15 ug/g Normal 0-120 [facility] Comment on above: Result Comment: Conc entration Interpretation Follow-Up < 5 - 50 ug/g Normal None >50 -120 ug/g Borderline Re-evaluate in 4-6 weeks >120 ug/g Abnormal Repeat as clinically indicated Performed at: - [facility] [id number] [address] [employer] Press: Kayleigh Mcadams MD, Phone: [phone] Performed By: #### L 7000.0700 ####[facility] [id number] [place], [place], [id number] Celiac Disease Profileon ENDOMYSIAL IGA Negative Normal Negative [facility] Comment on above: Performed By: #### L 3410.2400 ####[facility] [address] [place], [place], [id number] IMMUNOGLOB A QN 162 mg/dL Normal 90-386 [facility] Comment on above: Result Comment: Perf ormed at: - [facility] [address] [id number] [address] [employer] Press: Chente Bernabe PhD, Phone: [phone] Performed By: #### L 3410.2400 ####[facility] [address] [place], [place], [id number] tTG IGA <2 Normal 0-3 [facility] Comment on above: Result Comment: Nega tive 0 - 3 Weak Positive 4 - 10 Positive >10 Tissue Transglutaminase (tTG) has been identified as the endomysial antigen. Studies have demonstr- ated that endomysial IgA antibodies have over 99% specificity for gluten sensitive enteropathy. Performed By: #### L 3410.2400 ####[facility] [address] [place], [place], [id number] Emergency Department Summary on 03-29-2024 Emergency Department Summary [facility] Medical Records Department [address] [place] [address] Emergency Department Summary 03/29/24 MR#: [id number] Acct: [id number] Name: JULIET MORRIS TAMAR Rep #: [id number] : 2005 19 From: Roderick Chan DO PCP: Dr. Roderick Argueta MD Status:DEP ER Location: ED HPI History of Present Illness HPI Narrative: Patient presents with left knee injury that occurred today while he was at work. Patient states that a metal bar fell and hit him on his leg. Patient states the bar weighed approximately 100 pounds. Patient states the pain is mostly over the anterior aspect of the left knee. Patient describes the pain as sharp and throbbing. Patient states it is worse with flexion of his knee. Patient denies any paresthesias or weakness. Patient denies any other injuries. Patient states his last tetanus was less than 5 years ago. Chief Complaint: Lower Extremity Injury Informant: patient Occured/Mechanism Mechanism/Context: Yes blunt trauma Onset/Context/Timing Onset: Today Context: Sudden Onset Timing: Continuous Quality of Pain: Sharp (With flexion) and Throbbing Location: Left knee Worsened by: Flexion of the left knee Relieved by: Nothing Associated Symptoms Associated Symptoms: Negative for Parasthesia, Weakness or Loss of Funtion Narrative Tetanus Immunization: <5 years [facility] Medical History (Updated 03/29/24 @ 23:[address] Roderick Chan DO) GERD (gastroesophageal reflux disease) Colitis Home Medications ???Medication ???Instructions ???Recorded ???Last Taken ???Type famotidine 40 mg tablet 40 mg PO DAILY 03/29/24 Unknown History Allergy/AdvReac Type Severity Reaction Status Date / Time iodine Allergy Other Verified 03/29/24 21:50 Family History Father Asthma Surgical History No pertinent past surgical history no surgical history Social History Smoking Status: Never smoker ROS ROS ED Constitutional Constitutional ED: Denies chills or fever(s) Eyes Eyes: Denies blurry vision or change in vision ENT ENT ED: Denies rhinorrhea or sore throat Cardiovascular Cardiovascular: Denies chest pain or palpitations Respiratory/Chest Respiratory/Chest: Denies cough or dyspnea Gastrointestinal Gastrointestinal: Denies nausea or vomiting Genitourinary Genitourinary ED: Denies dysuria or hematuria Musculoskeletal Musculoskeletal: Reports back pain; Denies neck pain Integumentary Denies abscess or rash Neurologic Neurologic: Denies headache(s) or weakness Allergic/Immunologic Allergic/Immunologic ED: Denies mouth swelling or urticaria EXAM Physical Exam Const Vital Signs: 03/29/24 21:47 Temperature 96.8 F L Temperature Source Temporal Pulse Rate 66 Respiratory Rate 16 Blood Pressure 129/73 H Blood Pressure Mean 91 Pulse Ox 99 Oxygen Delivery Method Room Air Positive well nourished and well developed General Appearance ED: well developed and NAD HEENT Reports moist mucous membranes Neck full ROM and supple Extremity Extremity Narrative: There is tenderness of the anterior aspect of the left knee just above the patella. There is some edema and ecchymosis. There is a very superficial abrasion. There is no bleeding noted. There is somewhat limited range of motion of flexion of the left knee secondary to pain. Extensor mechanism is intact. Strength is 5/5 bilaterally in the lower extremities. There are no sensory deficits noted. Neuro oriented x3, CN's II-XII intact bilaterally, moves all extremities and no sensory deficits noted Sensorium / Orientation: alert Motor Exam: strength 5/5 throughout MDM MDM MDM Narrative Medical decision making narrative: Differential diagnosis includes fracture, contusion, and sprain. X-rays of the left knee will be obtained to assess for fracture. Radiography Diagnostic Testing: Clinical Impression(s) from Imaging Studies Knee X-Ray 03/29/24 22:00 IMPRESSION: Negative. Electronically Signed: Horacio Armando DO at 22:26 EDT Reading Location ID and State: [facility] / [place] Tel [phone], Service support , X-rays of the left knee were obtained. There are 4 views. On my independent interpretation, there is no acute fracture. There is no soft tissue swelling noted. Radiologist also interpreted the x- rays and agrees. Treatment and Re-Evaluation Narrative: Patient was advised of his findings. Patient was advised that this is most likely contusion. Patient instructed use ice to the area. Patient was instructed to take Tylenol or ibuprofen as needed for pain. Patient was instructed to follow-up with his p (more content not included)... Normal [facility] Knee 4 or More Viewson 03-29 Knee 4 or More Views [facility] Imaging Services [address] [place] [address] Knee 4 or More Views MR#: [id number] Acct: [id number] Name: JULIET MORRIS Rep #: [id number] : 2005 M 19 From: Horacio Tr GREGORY PCP: Dr. Roderick Argueta MD Status: PRE ER Study: Knee 4 or More Views Date of Exam: 03/29/24 Exam# [id number] Ordering Dr: Provider,Ed P. :[id number] INDICATION: injury EXAMINATION/TECHNIQUE: X-RAY - LEFT XR Knee Complete 4 Views COMPARISON: FINDINGS: SOFT TISSUES: No soft tissue swelling or gas. No radiopaque foreign body. BONES/JOINTS: No acute fracture or subluxation.. Normal alignment. Preservation of the joint space.. No sclerotic or destructive changes observed. RAD/Knee 4 or More Views IMPRESSION: Negative. Electronically Signed: Horacio Armando DO at 22:26 EDT Reading Location ID and State: [facility] / [place] Tel [phone], Service support , CC: Dr. Roderick Argueta MD; ED PHYSICIAN PROVIDER Lead Radiologic Technologist: Signed [facility] Final Surgical Pathology Rep [facility] 02-10-2024 Final Surgical Pathology Report . Pathology Reports Accession: Collected Date/Time: Received Date/Time: Pathologist: [id number] 02/07/2024 15:43 EDT 02/09/2024 09:32 EDT CHARANJIT [...] All parts labelled with patient name and [id number] A. Received in formalin labeled terminal ileum biopsies are 5 castellon tissue fragments measuring less than 0.1 to 0.3 cm. Smallest fragment may not survive processing. TS-1 B. Received in formalin labeled descending colon biopsies are multiple castellon-pink tissue fragments aggregating 1.7 x 0.2 x 0.1 cm. Smallest fragments may not survive processing. TS-1 Barby Sheridan, Grossing Credit Processor/ Dr. Sriram Palencia, Pathologist Performed by Barby Sheridan MICROSCOPIC DESCRIPTION: The microscopic examination is performed, except in the case of Gross Only. Electronically Signed by Pathology Report verified by [facility] CHARANJIT OROURKE Sign out Date: 02/10/2024 10:15 Performing Lab: [facility], [address] [place] [address] Pathology Dept Disclaimer If ancillary studies were utilized, the following Laboratory Developed Test (LDT) disclaimer will apply: Under CLIA requirements, [facility] is qualified to perform high complexity testing. For all ancillary stains, positive and negative controls stain appropriately. Performance characteristics of immunohistochemical and chromogenic in-situ hybridization tests have been determined by [facility]. These tests are used for clinical purposes, They should not be regarded as investigational or for research. Normal [facility] L501.5101on 02-05-2024 GGTP 69 Normal [facility] Comment on above: Result Comment: TEST RESULTS LIMITS GGT 69 High IU/L 0-65 TESTING PERFORMED AT [facility]. ORIGINAL REPORT ON FILE IN LAB CONTAINS ADDITIONAL TEST SITE INFORMATION. Performed By: #### L 500.4050, L100.0100, L501.6710, L101.9900 #### [facility] [address] [place], [address] CBC W/Diff, Automatedon 08-2 Absolute Lymph 2.17 X10 3/uL Normal 0.83-4.51 [facility] Comment on above: Performed By: #### L 100.0100, L501.6710, L500.3400, L101.9900, L501.5101 ####[facility] [address] [place], [address] Absolute Neut 3.1 X10 3/uL Normal 2.0-7.7 [facility] Comment on above: Performed By: #### L 100.0100, L501.6710, L500.3400, L101.9900, L501.5101 ####[facility] [address] [place], [address] Basophils/100 WBC (Bld) 1.6 % High 0-1 [facility] Comment on above: Performed By: #### L 100.0100, L501.6710, L500.3400, L101.9900, L501.5101 ####[facility] [address] [place], [address] Eosinophils/100 WBC (Bld) 6.4 % High 0-5 [facility] Comment on above: Performed By: #### L 100.0100, L501.6710, L500.3400, L101.9900, L501.5101 ####[facility] [address] [place], [address] Erythrocyte distribution width (RBC) [Ratio] 13.1 % Normal 11.6-14.6 [facility] Comment on above: Performed By: #### L 100.0100, L501.6710, L500.3400, L101.9900, L501.5101 ####[facility] [address] [place], [address] Hematocrit (Bld) [Volume fraction] 40.5 % Normal 40-54 [facility] Comment on above: Performed By: #### L 100.0100, L501.6710, L500.3400, L101.9900, L501.5101 ####[facility] [address] [place], [address] Hemoglobin (Bld) [Mass/Vol] 13.1 g/dL Normal 13.0-16.5 [facility] Comment on above: Performed By: #### L 100.0100, L501.6710, L500.3400, L101.9900, L501.5101 ####[facility] [address] [place], [address] IG% 0.300 Normal 0.0-0.9 [facility] Comment on above: Result Comment: IG% - Immature Granulocytes (promyelocytes, myelocytes and metamyelocytes) > 1% indicates that a LEFT SHIFT is Present. Performed By: #### L 100.0100, L501.6710, L500.3400, L101.9900, L501.5101 ####[facility] [address] [place], [address] Lymphocytes/100 WBC (Bld) 31.7 % Normal 19-41 [facility] Comment on above: Performed By: #### L 100.0100, L501.6710, L500.3400, L101.9900, L501.5101 ####[facility] [address] [place], [address] MCH (RBC) [Entitic mass] 26.7 pg Low 27.0-32.0 [facility] Comment on above: Performed By: #### L 100.0100, L501.6710, L500.3400, L101.9900, L501.5101 ####[facility] [address] [place], [address] MCHC (RBC) [Mass/Vol] 32.3 g/dL Normal 32-36 [facility] Comment on above: Performed By: #### L 100.0100, L501.6710, L500.3400, L101.9900, L501.5101 ####[facility] [address] [place], [address] MCV (RBC) [Entitic vol] 82.7 fL Normal 80-94 [facility] Comment on above: Performed By: #### L 100.0100, L501.6710, L500.3400, L101.9900, L501.5101 ####[facility] [address] [place], [address] Monocytes/100 WBC (Bld) 15.1 % High 0-10 [facility] Comment on above: Performed By: #### L 100.0100, L501.6710, L500.3400, L101.9900, L501.5101 ####[facility] [address] [place], [address] Neutrophils/100 WBC (Bld) 44.9 % Low 47-70 [facility] Comment on above: Performed By: #### L 100.0100, L501.6710, L500.3400, L101.9900, L501.5101 ####[facility] [address] [place], [address] Nucleated RBC (Bld) [#/Vol] 0 10*3/uL Normal 0-5 [facility] Comment on above: Performed By: #### L 100.0100, L501.6710, L500.3400, L101.9900, L501.5101 ####[facility] [address] [place], [address] Platelet mean volume (Bld) [Entitic vol] 9.6 fL Normal 6.2-12.0 [facility] Comment on above: Performed By: #### L 100.0100, L501.6710, L500.3400, L101.9900, L501.5101 ####[facility] [address] [place], [address] Platelets (Bld) [#/Vol] 401 10*3/uL Normal 150-450 [facility] Comment on above: Performed By: #### L 100.0100, L501.6710, L500.3400, L101.9900, L501.5101 ####[facility] [address] [place], [address] RBC (Bld) [#/Vol] 4.90 10*6/uL Normal 4.6-6.2 [facility] Comment on above: Performed By: #### L 100.0100, L501.6710, L500.3400, L101.9900, L501.5101 ####[facility] [address] [place], [address] RDW SD 39.3 fl Normal 35.1-43.9 [facility] Comment on above: Performed By: #### L 100.0100, L501.6710, L500.3400, L101.9900, L501.5101 ####[facility] [address] [place], [address] WBC (Bld) [#/Vol] 6.8 10*3/uL Normal 4.4-11.0 [facility] Comment on above: Performed By: #### L 100.0100, L501.6710, L500.3400, L101.9900, L501.5101 ####[facility] [address] [place], [address] CRPon 01-30-2024 C-REACTIVE PROT < 2.90 Normal 0.0-3.0 [facility] Comment on above: Result Comment: C-Re active Protein (CRP) provides useful information for the diagnosis, therapy and monitoring of inflammatory processes and associated diseases. For the evaluation of Relative Risk for Cardiovascular Disease, a High Sensitivity CRP (HSCRP) should be ordered. Performed By: #### L 500.4050, L100.0100, L501.6710, L101.9900 #### [facility] [address] [place], [address] Erythrocyte Sed Rateon 01-29 SED RATE 5 mm/hr Normal 0-20 [facility] Comment on above: Performed By: #### L 500.4050, L100.0100, L501.6710, L101.9900 #### [facility] [address] [place], [address] Liver Profileon 01-30-2024 Albumin [Mass/Vol] 3.8 g/dL Normal 3.2-5.0 [facility] Comment on above: Performed By: #### L 500.4050, L100.0100, L501.6710, L101.9900 #### [facility] [address] [place], [address] ALK P 152 U/L High 45-117 [facility] Comment on above: Performed By: #### L 500.4050, L100.0100, L501.6710, L101.9900 #### [facility] [address] [place], [address] ALT [Catalytic activity/Vol] 41 U/L Normal 16-61 [facility] Comment on above: Performed By: #### L 500.4050, L100.0100, L501.6710, L101.9900 #### [facility] [address] [place], [address] AST [Catalytic activity/Vol] 27 U/L Normal 15-37 [facility] Comment on above: Performed By: #### L 500.4050, L100.0100, L501.6710, L101.9900 #### [facility] [address] [place], [address] Bilirubin [Mass/Vol] 0.30 mg/dL Normal 0.20-1.00 [facility] Comment on above: Result Comment: For patients on eltrombopag therapy, use of Dimension Pilger TBIL is not recommended. Performed By: #### L 500.4050, L100.0100, L501.6710, L101.9900 #### [facility] [address] [place], [address] Bilirubin.direct [Mass/Vol] 0.10 mg/dL Normal 0.00-0.30 [facility] Comment on above: Performed By: #### L 500.4050, L100.0100, L501.6710, L101.9900 #### [facility] [address] [place], [address] Globulin (S) [Mass/Vol] 4.2 g/dL Normal 2.2-4.2 [facility] Comment on above: Performed By: #### L 500.4050, L100.0100, L501.6710, L101.9900 #### [facility] [address] [place], [address] T PROT 8.0 g/dL Normal 6.4-8.2 [facility] Comment on above: Performed By: #### L 500.4050, L100.0100, L501.6710, L101.9900 #### [facility] [address] [place], [address] Abdomen/Pelvis W IV Cont ONL Yon 01-07-2024 Abdomen/Pelvis W IV Cont ONLY [facility] Imaging Services [address] [place] [address] Abdomen/Pelvis W IV Cont ONLY MR#: [id number] Acct: [id number] Name: JULIET MORRIS Rep #: [id number] : 2005 M 18 From: Jc Ramirez MD PCP: Dr. Roderick Argueta MD Status: [facility] Study: Abdomen/Pelvis W IV Cont ONLY Date of Exam: Exam# [id number] Ordering Dr: Medhat Miller DO :[id number] STUDY: CT ABDOMEN AND PELVIS WITH CONTRAST REASON FOR EXAM: Male, 18 years old. Diffuse abdominal pain RADIATION DOSAGE (If Supplied By Facility): CTDIvol = ( 16.75 ) mGy, DLP = ( 1387.00 ) mGycm TECHNIQUE: Transaxial images were obtained from the dome of the diaphragm to the symphysis pubis without oral contrast. IV 100mL Isovue-370 was administered. Sagittal and coronal images were reconstructed. Individualized dose optimization techniques were used for this CT. COMPARISON: 12/18/2023 FINDINGS: The visualized lung bases are unremarkable. The visualized portions of the heart are within normal limits. Normal liver. Normal gallbladder and extrahepatic biliary system. Normal spleen. Normal pancreas. Normal bilateral adrenal glands. Normal right kidney. Normal left kidney. Normal visualized stomach. Nondistended fluid-filled small bowel loops suggestive of ileus. Retained stool throughout the colon The appendix is visualized and appears normal. Appendix seen on coronal recon images 61-72 Normal abdominal aorta. Normal inferior vena cava. Normal retroperitoneum. Normal urinary bladder. There is a small umbilical hernia containing fat. Normal osseous structures. CT/Abdomen/Pelvis W IV Cont ONLY IMPRESSION: No suspicious solid organ abnormality No free intraperitoneal fluid, air, or suspicious adenopathy, normal appendix visualized Small bowel ileus perhaps due to retained stool throughout the entirety of the colon Electronically Signed: Erick Ramirez MD at 13:32 EDT , CC: Dr. Roderick Argueta MD; Dr. Medhat Miller DO Lead Radiologic Technologist: Signed Normal [facility] CBC W/Diff, Automatedon 08-0 -2023 Absolute Lymph 0.46 X10 3/uL Low 0.83-4.51 [facility] Comment on above: Performed By: #### L 100.0100, L503.6005, L500.4050 ####[facility] [address] [place], [address] Absolute Neut 4.0 X10 3/uL Normal 2.0-7.7 [facility] Comment on above: Performed By: #### L 100.0100, L503.6005, L500.4050 ####[facility] [address] [place], [address] Basophils/100 WBC (Bld) 1.1 % High 0-1 [facility] Comment on above: Performed By: #### L 100.0100, L503.6005, L500.4050 ####[facility] [address] [place], [address] Eosinophils/100 WBC (Bld) 1.3 % Normal 0-5 [facility] Comment on above: Performed By: #### L 100.0100, L503.6005, L500.4050 ####[facility] [address] [place], [address] Erythrocyte distribution width (RBC) [Ratio] 12.6 % Normal 11.6-14.6 [facility] Comment on above: Performed By: #### L 100.0100, L503.6005, L500.4050 ####[facility] [address] [place], [address] Hematocrit (Bld) [Volume fraction] 42.9 % Normal 40-54 [facility] Comment on above: Performed By: #### L 100.0100, L503.6005, L500.4050 ####[facility] [address] [place], [address] Hemoglobin (Bld) [Mass/Vol] 14.1 g/dL Normal 13.0-16.5 [facility] Comment on above: Performed By: #### L 100.0100, L503.6005, L500.4050 ####[facility] [address] [place], [address] IG% 0.200 Normal 0.0-0.9 [facility] Comment on above: Result Comment: IG% - Immature Granulocytes (promyelocytes, myelocytes and metamyelocytes) > 1% indicates that a LEFT SHIFT is Present. Performed By: #### L 100.0100, L503.6005, L500.4050 ####[facility] [address] [place], [address] Lymphocytes/100 WBC (Bld) 8.5 % Low 19-41 [facility] Comment on above: Performed By: #### L 100.0100, L503.6005, L500.4050 ####[facility] [address] [place], [address] MCH (RBC) [Entitic mass] 27.3 pg Normal 27.0-32.0 [facility] Comment on above: Performed By: #### L 100.0100, L503.6005, L500.4050 ####[facility] [address] [place], [address] MCHC (RBC) [Mass/Vol] 32.9 g/dL Normal 32-36 [facility] Comment on above: Performed By: #### L 100.0100, L503.6005, L500.4050 ####[facility] [address] [place], [address] MCV (RBC) [Entitic vol] 83.1 fL Normal 80-94 [facility] Comment on above: Performed By: #### L 100.0100, L503.6005, L500.4050 ####[facility] [address] [place], [address] Monocytes/100 WBC (Bld) 14.7 % High 0-10 [facility] Comment on above: Performed By: #### L 100.0100, L503.6005, L500.4050 ####[facility] [address] [place], [address] Neutrophils/100 WBC (Bld) 74.2 % High 47-70 [facility] Comment on above: Performed By: #### L 100.0100, L503.6005, L500.4050 ####[facility] [address] [place], [address] Nucleated RBC (Bld) [#/Vol] 0 10*3/uL Normal 0-5 [facility] Comment on above: Performed By: #### L 100.0100, L503.6005, L500.4050 ####[facility] [address] [place], [address] Platelet mean volume (Bld) [Entitic vol] 9.0 fL Normal 6.2-12.0 [facility] Comment on above: Performed By: #### L 100.0100, L503.6005, L500.4050 ####[facility] [address] [place], [address] Platelets (Bld) [#/Vol] 336 10*3/uL Normal 150-450 [facility] Comment on above: Performed By: #### L 100.0100, L503.6005, L500.4050 ####[facility] [address] [place], [address] RBC (Bld) [#/Vol] 5.16 10*6/uL Normal 4.6-6.2 [facility] Comment on above: Performed By: #### L 100.0100, L503.6005, L500.4050 ####[facility] [address] [place], [address] RDW SD 38.5 fl Normal 35.1-43.9 [facility] Comment on above: Performed By: #### L 100.0100, L503.6005, L500.4050 ####[facility] [address] [place], [address] WBC (Bld) [#/Vol] 5.4 10*3/uL Normal 4.4-11.0 [facility] Comment on above: Performed By: #### L 100.0100, L503.6005, L500.4050 ####[facility] [address] [place], [address] Chest 1 View (Portable)on Chest 1 View (Portable) [facility] Imaging Services [address] [place] [address] Chest 1 View (Portable) MR#: [id number] Acct: [id number] Name: JULIET MORRIS TAMAR Rep #: [id number] : 2005 M 18 From: Jc Ramirez MD PCP: Dr. Roderick Argueta MD Status: [facility] Study: Chest 1 View (Portable) Date of Exam: 01/07/24 Exam# [id number] Ordering Dr: Medhat Miller DO :[id number] STUDY: X-RAY CHEST REASON FOR EXAM: Male, 18 years old. Fever and cough TECHNIQUE: Single AP portable view of the chest. COMPARISON: None. FINDINGS: The lungs are clear and expanded. There is no demonstrated pleural abnormality. Normal size heart. Normal mediastinum and mir. Normal visualized pulmonary arteries. Normal visualized aortic arch and descending thoracic aorta. Normal visualized thoracic spine. Normal visualized ribs, clavicles, and shoulders. There is no demonstrated abnormality of the visualized soft tissue structures of the upper abdomen. RAD/Chest 1 View (Portable) IMPRESSION: Normal x-ray examination of the chest. Electronically Signed: Erick Ramirez MD at 14:16 EDT , CC: Dr. Roderick Argueta MD; Dr. Medhat Miller DO Lead Radiologic Technologist: Signed Normal [facility] Comprehensive Metabolic Prof ilon 01-07-2024 Albumin [Mass/Vol] 3.6 g/dL Normal 3.2-5.0 [facility] Comment on above: Performed By: #### L 100.0100, L503.6005, L500.4050 ####[facility] [address] [place], [address] Albumin/Globulin [Mass ratio] 0.8 {ratio} Low 0.9-2.4 [facility] Comment on above: Performed By: #### L 100.0100, L503.6005, L500.4050 ####[facility] [address] [place], [address] ALK P 151 U/L High 45-117 [facility] Comment on above: Performed By: #### L 100.0100, L503.6005, L500.4050 ####[facility] [address] [place], [address] ALT [Catalytic activity/Vol] 55 U/L Normal 16-61 [facility] Comment on above: Performed By: #### L 100.0100, L503.6005, L500.4050 ####[facility] [address] [place], [address] AST [Catalytic activity/Vol] 42 U/L High 15-37 [facility] Comment on above: Performed By: #### L 100.0100, L503.6005, L500.4050 ####[facility] [address] [place], [address] Bilirubin [Mass/Vol] 0.50 mg/dL Normal 0.20-1.00 [facility] Comment on above: Result Comment: For patients on eltrombopag therapy, use of Dimension Pilger TBIL is not recommended. Performed By: #### L 100.0100, L503.6005, L500.4050 ####[facility] [address] [place], [address] BUN/CRE 7.5 RATIO Low 10-20 [facility] Comment on above: Performed By: #### L 100.0100, L503.6005, L500.4050 ####[facility] [address] [place], [address] CA,Total 9.1 mg/dL Normal 8.5-10.1 [facility] Comment on above: Performed By: #### L 100.0100, L503.6005, L500.4050 ####[facility] [address] [place], [address] Chloride [Moles/Vol] 107 mmol/L Normal 98-107 [facility] Comment on above: Performed By: #### L 100.0100, L503.6005, L500.4050 ####[facility] [address] [place], [address] CO2 [Moles/Vol] 29.0 mmol/L Normal 21.0-32.0 [facility] Comment on above: Performed By: #### L 100.0100, L503.6005, L500.4050 ####[facility] [address] [place], [address] Creatinine [Mass/Vol] 0.94 mg/dL Normal 0.70-1.30 [facility] Comment on above: Result Comment: The validity of the calculated GFR GFRAA in patients over 70 years has not been determined. Clinical correlation is essential. Performed By: #### L 100.0100, L503.6005, L500.4050 ####[facility] [address] [place], [address] ECRCL 169.07 ml/min Normal [facility] Comment on above: Performed By: #### L 100.0100, L503.6005, L500.4050 ####[facility] [address] [place], [address] EST GFR - AA 132 mL/min Normal >60 [facility] Comment on above: Result Comment: Afri can Japanese GFR Calc Performed By: #### L 100.0100, L503.6005, L500.4050 ####[facility] [address] [place], [address] GAP 3 Low 5-15 [facility] Comment on above: Performed By: #### L 100.0100, L503.6005, L500.4050 ####[facility] [address] [place], [address] GFR/1.73 sq M.predicted among non-blacks MDRD (S/P/Bld) [Vol rate/Area] 109 mL/min/{1.73_m2} Normal >60 [facility] Comment on above: Result Comment: Non- GFR Calc Performed By: #### L 100.0100, L503.6005, L500.4050 ####[facility] [address] [place], [address] Globulin (S) [Mass/Vol] 4.5 g/dL High 2.2-4.2 [facility] Comment on above: Performed By: #### L 100.0100, L503.6005, L500.4050 ####[facility] [address] [place], [address] Glucose [Mass/Vol] 98 mg/dL Normal 74-106 [facility] Comment on above: Performed By: #### L 100.0100, L503.6005, L500.4050 ####[facility] [address] [place], [address] Potassium [Moles/Vol] 3.6 mmol/L Normal 3.5-5.1 [facility] Comment on above: Performed By: #### L 100.0100, L503.6005, L500.4050 ####[facility] [address] [place], [address] Sodium [Moles/Vol] 139 mmol/L Normal 136-145 [facility] Comment on above: Performed By: #### L 100.0100, L503.6005, L500.4050 ####[facility] [address] [place], [address] T PROT 8.1 g/dL Normal 6.4-8.2 [facility] Comment on above: Performed By: #### L 100.0100, L503.6005, L500.4050 ####[facility] [address] [place], [address] Urea nitrogen [Mass/Vol] 7 mg/dL Normal 7-18 [facility] Comment on above: Performed By: #### L 100.0100, L503.6005, L500.4050 ####[facility] [address] [place], [address] Emergency Department Summary on 01-07-2024 Emergency Department Summary [facility] Medical Records Department [address] [place] [address] Emergency Department Summary 01/07/24 MR#: [id number] Acct: [id number] Name: JULIET MORRIS Rep #: [id number] : 2005 18 From: Medhat Miller DO PCP: Dr. Roderick Argueta MD Status:DEP ER Location: ED HPI HPI - GI History of Present Illness Chief Complaint: Abd Pain Detail of Chief Complaint: Abdominal pain Informant: patient Narrative Narrative: Patient presents with abdominal pain it has been ongoing off and on for 6 months. He was seen in the emergency department 2 weeks ago and diagnosed with pancolitis. Patient states that he does see a roll mechanic and saw a GI specialist earlier in the year and had an upper GI scope. He has not been given his results and has not followed up and has an appointment to see the GI doctor again in 2 weeks. Patient seen in the emergency department 2 weeks ago and diagnosed with pancolitis and started on Augmentin which she finished. Continues to have the same belly pain. Also today had a low-grade fever and his cough gotten worse over the last 3 days. Both parents also with URI symptoms. Patient today had pain to the right lower quadrant which is unusual as his pain was more left-sided before. He denies any blood in his stool or black tarry stool. [facility] Medical History (Updated 01/07/24 @ 14:[address] Medhat Miller, DO) Colitis Home Medications ???Medication ???Instructions ???Recorded ???Last Taken ???Type dicyclomine 20 mg tablet 20 mg PO TID #20 tabs 12/18/23 Unknown Rx rabeprazole 20 mg tablet,delayed 20 mg PO Q24H 12/18/23 12/16/23 History release benzonatate 200 mg capsule 200 mg PO TID PRN cough #20 caps 01/07/24 Unknown Rx mesalamine 800 mg tablet,delayed 1,600 mg PO BID 01/07/24 Unknown History release Allergy/AdvReac Type Severity Reaction Status Date / Time iodine Allergy Other Verified 01/07/24 11:18 Family History Father Asthma Surgical History No pertinent past surgical history Social History Smoking Status: Never smoker ROS ROS ED Review of Systems ROS Unobtainable: other Constitutional Constitutional ED: Reports lethargy; Denies chills, fever(s), sweats or weight loss Eyes Eyes: Denies blurry vision, change in vision or diplopia ENT ENT ED: Denies rhinorrhea or sore throat Cardiovascular Cardiovascular: Denies chest pain, orthopnea or racing heartbeat Respiratory/Chest Respiratory/Chest: Reports cough; Denies dyspnea, dyspnea on exertion, orthopnea or sputum Gastrointestinal Gastrointestinal: Reports abdominal pain; Denies diarrhea, nausea or vomiting Genitourinary Genitourinary ED: Denies dysuria, hematuria or urinary frequency Musculoskeletal Musculoskeletal: Denies arthralgias, back pain, myalgias or neck pain Integumentary Denies abscess, Abrasions or rash Neurologic Neurologic: Denies headache(s) or weakness Psychiatric Psychiatric: Denies anxiety, depression or suicidal thoughts Endocrine Endocrinology: Denies polydipsia, polyphagia or polyuria Hematologic/Lymphatic Hematologic/Lymphatic: Denies easy bleeding, easy bruising or lymphadenopathy Allergic/Immunologic Allergic/Immunologic ED: Denies mouth swelling, tongue swelling or urticaria EXAM Physical Exam Const Vital Signs: 01/07/24 11:18 01/07/24 11:20 01/07/24 13:43 Temperature 98.1 F 98.1 F Temperature Source Temporal Oral Pulse Rate 101 H 101 H 91 Respiratory Rate 22 H 22 H 18 Blood Pressure 111/53 L 111/53 L 99/84 H Blood Pressure Mean 72 72 89 Pulse Ox 96 96 99 Oxygen Delivery Method Room Air Room Air Room Air Positive well nourished and well developed General Appearance ED: well developed and NAD HEENT Reports TM's clear and moist mucous membranes normocephalic and atraumatic; Negative for trauma or tenderness Tympanic Membrane ED: Yes TM's clear Eyes PERRL and EOMs intact bilaterally General Eye ED: Negative for pale conjunctiva or scleral icterus Neck no lymphadenopathy, supple and no JVD General: Negative for tenderness Chest Wall inspection of chest normal and palpation of chest normal Chest: Negative for tenderness Resp normal respiratory effort and clear to auscultation bilaterally Effort and Inspection: Negative for respiratory distress or pain with movement Auscultation: Negative for rhonchi, wheezes or diminished lung sounds Cardio regular rate, regular rhythm, S1 normal heart sound, S2 normal heart sound and no murmurs Peripheral Pulses: pulses 2+ throughout GI normal to inspection, nondistended, normoactive bowel sounds, soft to palpation, non-distended and no masses GI Jorje (more content not included)... Normal [facility] Lactic Acidon 01-07-2024 Lactate [Moles/Vol] 1.2 mmol/L Normal 0.4-1.9 [facility] Comment on above: Order Comment: Y Performed By: #### L 100.0100, L503.6005, L500.4050 ####[facility] [address] [place], [address] M100.678on 01-07-2024 M100.678 Normal Reference Ran ge = Negative GeneXpert Instrument, PCR method FLUABV+SARS-CoV-2+RSV Pnl Resp LUIS+probe Copy of report sent to Infection Control Printer [id number] 01/07/24 1306 BLUCAS. SARS-CoV-2 (COVID 19) A Positive A INFLUENZA A Negative INFLUENZA B Negative RSV PCR Negative SARS-CoV-2 (COVID 19 PCR) Normal [facility] Comment on above: Performed By: #### L 500.4050, L100.0100, L501.6710, L101.9900 #### [facility] [address] [place], [address] Urinalysis, Completeon 01-06 BACTERIA 0 SEEN Normal None Seen [facility] Comment on above: Order Comment: COLLE CTOR TO SPECIFY Performed By: #### L 400.0001 #### [facility] [address] [place], [address] EPI,SQUAMOUS 0 SEEN Normal 0-5 [facility] Comment on above: Order Comment: COLLE CTOR TO SPECIFY Performed By: #### L 400.0001 #### [facility] [address] [place], [address] Mucus Ql (Urine sed) 0 SEEN Normal [facility] Comment on above: Order Comment: COLLE CTOR TO SPECIFY Performed By: #### L 400.0001 #### [facility] [address] [place], [address] RBC 0 SEEN Normal 0-5 [facility] Comment on above: Order Comment: ADOLFO CTOR TO SPECIFY Performed By: #### L 400.0001 #### [facility] [address] [place], [address] WBC 0 SEEN Normal 0-5 [facility] Comment on above: Order Comment: ADOLFO CTOR TO SPECIFY Performed By: #### L 400.0001 #### [facility] [address] [place], [address] CBC W/Diff, Automatedon 07-3 0-2023 Absolute Lymph 2.63 X10 3/uL Normal 0.83-4.51 [facility] Comment on above: Order Comment: Order Date: 01/03/24 Order Info: 0184-1 - CBCD Order Info: [id number] - SED Performed By: #### L 500.4050, L100.0100, L501.6710, L101.9900 #### [facility] [address] [place], [address] Absolute Neut 2.9 X10 3/uL Normal 2.0-7.7 [facility] Comment on above: Order Comment: Order Date: 01/03/24 Order Info: 0184-1 - CBCD Order Info: 67838-6 - SED Performed By: #### L 500.4050, L100.0100, L501.6710, L101.9900 #### [facility] [address] [place], [address] Basophils/100 WBC (Bld) 1.2 % High 0-1 [facility] Comment on above: Order Comment: Order Date: 01/03/24 Order Info: 0184-1 - CBCD Order Info: 84818-8 - SED Performed By: #### L 500.4050, L100.0100, L501.6710, L101.9900 #### [facility] [address] [place], [address] Eosinophils/100 WBC (Bld) 3.7 % Normal 0-5 [facility] Comment on above: Order Comment: Order Date: 01/03/24 Order Info: 183-1 - CBCD Order Info: 51886-6 - SED Performed By: #### L 500.4050, L100.0100, L501.6710, L101.9900 #### [facility] [address] [place], [address] Erythrocyte distribution width (RBC) [Ratio] 12.7 % Normal 11.6-14.6 [facility] Comment on above: Order Comment: Order Date: 01/03/24 Order Info: 183-1 - CBCD Order Info: 20753-4 - SED Performed By: #### L 500.4050, L100.0100, L501.6710, L101.9900 #### [facility] [address] [place], [address] Hematocrit (Bld) [Volume fraction] 42.8 % Normal 40-54 [facility] Comment on above: Order Comment: Order Date: 01/03/24 Order Info: 018-1 - CBCD Order Info: 90081-3 - SED Performed By: #### L 500.4050, L100.0100, L501.6710, L101.9900 #### [facility] [address] [place], [address] Hemoglobin (Bld) [Mass/Vol] 13.7 g/dL Normal 13.0-16.5 [facility] Comment on above: Order Comment: Order Date: 01/03/24 Order Info: 018-1 - CBCD Order Info: 16643-2 - SED Performed By: #### L 500.4050, L100.0100, L501.6710, L101.9900 #### [facility] [address] [place], [address] IG% 0.100 Normal 0.0-0.9 [facility] Comment on above: Order Comment: Order Date: 01/03/24 Order Info: 183-06 - CBCD Order Info: 61699-4 - SED Result Comment: IG% - Immature Granulocytes (promyelocytes, myelocytes and metamyelocytes) > 1% indicates that a LEFT SHIFT is Present. Performed By: #### L 500.4050, L100.0100, L501.6710, L101.9900 #### [facility] [address] [place], [address] Lymphocytes/100 WBC (Bld) 39.2 % Normal 19-41 [facility] Comment on above: Order Comment: Order Date: 01/03/24 Order Info: 183-06 - CBCD Order Info: 85424-3 - SED Performed By: #### L 500.4050, L100.0100, L501.6710, L101.9900 #### [facility] [address] [place], [address] MCH (RBC) [Entitic mass] 26.6 pg Low 27.0-32.0 [facility] Comment on above: Order Comment: Order Date: 01/03/24 Order Info: 183-06 - CBCD Order Info: 85215-9 - SED Performed By: #### L 500.4050, L100.0100, L501.6710, L101.9900 #### [facility] [address] [place], [address] MCHC (RBC) [Mass/Vol] 32.0 g/dL Normal 32-36 [facility] Comment on above: Order Comment: Order Date: 01/03/24 Order Info: 183-06 - CBCD Order Info: [id number] - SED Performed By: #### L 500.4050, L100.0100, L501.6710, L101.9900 #### [facility] [address] [place], [address] MCV (RBC) [Entitic vol] 82.9 fL Normal 80-94 [facility] Comment on above: Order Comment: Order Date: 01/03/24 Order Info: 183-06 - CBCD Order Info: 99340-6 - SED Performed By: #### L 500.4050, L100.0100, L501.6710, L101.9900 #### [facility] [address] [place], [address] Monocytes/100 WBC (Bld) 11.9 % High 0-10 [facility] Comment on above: Order Comment: Order Date: 01/03/24 Order Info: 183-06 - CBCD Order Info: 43218-6 - SED Performed By: #### L 500.4050, L100.0100, L501.6710, L101.9900 #### [facility] [address] [place], [address] Neutrophils/100 WBC (Bld) 43.9 % Low 47-70 [facility] Comment on above: Order Comment: Order Date: 01/03/24 Order Info: 183-06 - CBCD Order Info: 63071-0 - SED Performed By: #### L 500.4050, L100.0100, L501.6710, L101.9900 #### [facility] [address] [place], [address] Nucleated RBC (Bld) [#/Vol] 0 10*3/uL Normal 0-5 [facility] Comment on above: Order Comment: Order Date: 01/03/24 Order Info: 183-06 - CBCD Order Info: 50632-4 - SED Performed By: #### L 500.4050, L100.0100, L501.6710, L101.9900 #### [facility] [address] [place], [address] Platelet mean volume (Bld) [Entitic vol] 9.4 fL Normal 6.2-12.0 [facility] Comment on above: Order Comment: Order Date: 01/03/24 Order Info: 183-06 - CBCD Order Info: 42138-2 - SED Performed By: #### L 500.4050, L100.0100, L501.6710, L101.9900 #### [facility] [address] [place], [address] Platelets (Bld) [#/Vol] 413 10*3/uL Normal 150-450 [facility] Comment on above: Order Comment: Order Date: 01/03/24 Order Info: 183-06 - CBCD Order Info: 45660-9 - SED Performed By: #### L 500.4050, L100.0100, L501.6710, L101.9900 #### [facility] [address] [place], [address] RBC (Bld) [#/Vol] 5.16 10*6/uL Normal 4.6-6.2 [facility] Comment on above: Order Comment: Order Date: 01/03/24 Order Info: 183-06 - CBCD Order Info: 59734-5 - SED Performed By: #### L 500.4050, L100.0100, L501.6710, L101.9900 #### [facility] [address] [place], [address] RDW SD 38.4 fl Normal 35.1-43.9 [facility] Comment on above: Order Comment: Order Date: 01/03/24 Order Info: 183- - CBCD Order Info: 21741-5 - SED Performed By: #### L 500.4050, L100.0100, L501.6710, L101.9900 #### [facility] [address] [place], [address] WBC (Bld) [#/Vol] 6.7 10*3/uL Normal 4.4-11.0 [facility] Comment on above: Order Comment: Order Date: 01/03/24 Order Info: 0184-1 - CBCD Order Info: 21457-1 - SED Performed By: #### L 500.4050, L100.0100, L501.6710, L101.9900 #### [facility] [address] [place], [place], [address] CRPon 01-03-2024 C-REACTIVE PROT < 2.90 Normal 0.0-3.0 [facility] Comment on above: Order Comment: Order Date: 01/03/24 Order Info: 0786-1 - CMP Order Info: 55653-3 - CRP Result Comment: C-Re active Protein (CRP) provides useful information for the diagnosis, therapy and monitoring of inflammatory processes and associated diseases. For the evaluation of Relative Risk for Cardiovascular Disease, a High Sensitivity CRP (HSCRP) should be ordered. Performed By: #### L 500.4050, L100.0100, L501.6710, L101.9900 #### [facility] [address] [place], [place], [address] Comprehensive Metabolic Prof ilon 01-03-2024 Albumin [Mass/Vol] 3.9 g/dL Normal 3.2-5.0 [facility] Comment on above: Order Comment: Order Date: 01/03/24 Order Info: 0786-1 - CMP Order Info: 20901-7 - CRP Performed By: #### L 500.4050, L100.0100, L501.6710, L101.9900 #### [facility] [address] [place], [place], [address] Albumin/Globulin [Mass ratio] 0.9 {ratio} Normal 0.9-2.4 [facility] Comment on above: Order Comment: Order Date: 01/03/24 Order Info: 0786-1 - CMP Order Info: 09572-7 - CRP Performed By: #### L 500.4050, L100.0100, L501.6710, L101.9900 #### [facility] [address] [place], [address] ALK P 148 U/L High 45-117 [facility] Comment on above: Order Comment: Order Date: 01/03/24 Order Info: 0786- - CMP Order Info: 55365-7 - CRP Performed By: #### L 500.4050, L100.0100, L501.6710, L101.9900 #### [facility] [address] [place], [address] ALT [Catalytic activity/Vol] 46 U/L Normal 16-61 [facility] Comment on above: Order Comment: Order Date: 01/03/24 Order Info: 07- - CMP Order Info: 52332-4 - CRP Performed By: #### L 500.4050, L100.0100, L501.6710, L101.9900 #### [facility] [address] [place], [address] AST [Catalytic activity/Vol] 25 U/L Normal 15-37 [facility] Comment on above: Order Comment: Order Date: 01/03/24 Order Info: 0786- - CMP Order Info: 10573-5 - CRP Performed By: #### L 500.4050, L100.0100, L501.6710, L101.9900 #### [facility] [address] [place], [address] Bilirubin [Mass/Vol] 0.30 mg/dL Normal 0.20-1.00 [facility] Comment on above: Order Comment: Order Date: 01/03/24 Order Info: 0786-1 - CMP Order Info: [id number] - CRP Result Comment: For patients on eltrombopag therapy, use of Dimension Pilger TBIL is not recommended. Performed By: #### L 500.4050, L100.0100, L501.6710, L101.9900 #### [facility] [address] [place], [address] BUN/CRE 12.9 RATIO Normal 10-20 [facility] Comment on above: Order Comment: Order Date: 01/03/24 Order Info: 0786-1 - CMP Order Info: 13571-5 - CRP Performed By: #### L 500.4050, L100.0100, L501.6710, L101.9900 #### [facility] [address] [place], [address] CA,Total 9.5 mg/dL Normal 8.5-10.1 [facility] Comment on above: Order Comment: Order Date: 01/03/24 Order Info: 0786-1 - CMP Order Info: 78665-2 - CRP Performed By: #### L 500.4050, L100.0100, L501.6710, L101.9900 #### [facility] [address] [place], [address] Chloride [Moles/Vol] 103 mmol/L Normal 98-107 [facility] Comment on above: Order Comment: Order Date: 01/03/24 Order Info: 0786-1 - CMP Order Info: 16300-5 - CRP Performed By: #### L 500.4050, L100.0100, L501.6710, L101.9900 #### [facility] [address] [place], [address] CO2 [Moles/Vol] 27.0 mmol/L Normal 21.0-32.0 [facility] Comment on above: Order Comment: Order Date: 01/03/24 Order Info: 0786-1 - CMP Order Info: 05814-7 - CRP Performed By: #### L 500.4050, L100.0100, L501.6710, L101.9900 #### [facility] [address] [place], [address] Creatinine [Mass/Vol] 0.85 mg/dL Normal 0.70-1.30 [facility] Comment on above: Order Comment: Order Date: 01/03/24 Order Info: 0786- - CMP Order Info: 71759-1 - CRP Result Comment: The validity of the calculated GFR GFRAA in patients over 70 years has not been determined. Clinical correlation is essential. Performed By: #### L 500.4050, L100.0100, L501.6710, L101.9900 #### [facility] [address] [place], [address] EST GFR - AA 148 mL/min Normal >60 [facility] Comment on above: Order Comment: Order Date: 01/03/24 Order Info: 0786 - CMP Order Info: 77705-4 - CRP Result Comment: Afri can Japanese GFR Calc Performed By: #### L 500.4050, L100.0100, L501.6710, L101.9900 #### [facility] [address] [place], [address] GAP 7 Normal 5-15 [facility] Comment on above: Order Comment: Order Date: 01/03/24 Order Info: 0786- - CMP Order Info: 35816-8 - CRP Performed By: #### L 500.4050, L100.0100, L501.6710, L101.9900 #### [facility] [address] [place], [address] GFR/1.73 sq M.predicted among non-blacks MDRD (S/P/Bld) [Vol rate/Area] 122 mL/min/{1.73_m2} Normal >60 [facility] Comment on above: Order Comment: Order Date: 01/03/24 Order Info: 0786- - CMP Order Info: [id number] - CRP Result Comment: Non- GFR Calc Performed By: #### L 500.4050, L100.0100, L501.6710, L101.9900 #### [facility] [address] [place], [address] Globulin (S) [Mass/Vol] 4.3 g/dL High 2.2-4.2 [facility] Comment on above: Order Comment: Order Date: 01/03/24 Order Info: 0786-1 - CMP Order Info: 73205-4 - CRP Performed By: #### L 500.4050, L100.0100, L501.6710, L101.9900 #### [facility] [address] [place], [address] Glucose [Mass/Vol] 84 mg/dL Normal 74-106 [facility] Comment on above: Order Comment: Order Date: 01/03/24 Order Info: 0786-1 - CMP Order Info: 22436-3 - CRP Performed By: #### L 500.4050, L100.0100, L501.6710, L101.9900 #### [facility] [address] [place], [address] Potassium [Moles/Vol] 4.1 mmol/L Normal 3.5-5.1 [facility] Comment on above: Order Comment: Order Date: 01/03/24 Order Info: 0786-1 - CMP Order Info: [id number] - CRP Performed By: #### L 500.4050, L100.0100, L501.6710, L101.9900 #### [facility] [address] [place], [address] Sodium [Moles/Vol] 137 mmol/L Normal 136-145 [facility] Comment on above: Order Comment: Order Date: 01/03/24 Order Info: 0786-1 - CMP Order Info: [id number] - CRP Performed By: #### L 500.4050, L100.0100, L501.6710, L101.9900 #### [facility] [address] [place], [address] T PROT 8.2 g/dL Normal 6.4-8.2 [facility] Comment on above: Order Comment: Order Date: 01/03/24 Order Info: 0786-1 - CMP Order Info: 83375-3 - CRP Performed By: #### L 500.4050, L100.0100, L501.6710, L101.9900 #### [facility] [address] [place], [address] Urea nitrogen [Mass/Vol] 11 mg/dL Normal 7-18 [facility] Comment on above: Order Comment: Order Date: 01/03/24 Order Info: 0786-1 - CMP Order Info: [id number] - CRP Performed By: #### L 500.4050, L100.0100, L501.6710, L101.9900 #### [facility] [address] [place], [address] Erythrocyte Sed Rateon 01-02 SED RATE 5 mm/hr Normal 0-20 [facility] Comment on above: Order Comment: Order Date: 01/03/24 Order Info: 0184-1 - CBCD Order Info: 14354-3 - SED Performed By: #### L 500.4050, L100.0100, L501.6710, L101.9900 #### [facility] [address] [place], [address] Abdomen/Pelvis W IV Cont ONL Yon 12-18-2023 Abdomen/Pelvis W IV Cont ONLY [facility] Imaging Services [address] [place] [address] Abdomen/Pelvis W IV Cont ONLY MR#: [id number] Acct: [id number] Name: JULIET MORRIS Rep #: [id number] : 2005 M 18 From: Aleksandr Verdin PCP: Dr. Roderick Argueta MD Status: REG ER Study: Abdomen/Pelvis W IV Cont ONLY Date of Exam: Exam# [id number] Ordering Dr: Anuj Amaya WEB MASTER-C :[id number] EXAM: CT ABDOMEN AND PELVIS WITH INTRAVENOUS CONTRAST CLINICAL INDICATION: abdominal pain TECHNIQUE: Helically acquired images were obtained of the abdomen and pelvis with intravenous contrast. This CT exam was performed using one or more of the following dose reduction techniques: automated exposure control, adjustment of the mA and/or kV according to patient size, and/or use of iterative reconstruction technique. CONTRAST: IV 100mL Isovue-370 RADIATION DOSE: CTDIvol = 22.99 mGy, DLP = 1340.01 mGy-cm COMPARISON: 08/16/2023 FINDINGS: LOWER THORAX: Unremarkable. Lung bases are clear. No cardiomegaly. No significant pericardial effusion. ABDOMEN: LIVER: Unremarkable. Homogeneous. No focal mass. GALLBLADDER AND BILE DUCTS: Unremarkable. No calcified gallstones. No gallbladder distention or wall edema. No intra- or extrahepatic biliary ductal dilation. PANCREAS: Unremarkable. No focal cystic or solid mass. SPLEEN: Unremarkable. Normal size without focal cystic or solid mass. ADRENALS: Unremarkable. No nodules. KIDNEYS AND URETERS: Unremarkable. Normal renal size and position. No hydronephrosis. STOMACH AND BOWEL: There is an umbilical hernia containing fat. There is no bowel involvement. There is no incarceration. There is no findings suggesting that this is causing a bowel obstruction. Prominent inflammation and mural fat throughout the entire colon. This suggests pancolitis. PELVIS: APPENDIX: The appendix is visualized and is normal. BLADDER: Unremarkable. REPRODUCTIVE: Unremarkable as visualized. No mass. ABDOMEN and PELVIS: INTRAPERITONEAL SPACE: Unremarkable. No ascites or other fluid collection. No free air. BONES/JOINTS: Unremarkable. No suspicious lytic or blastic abnormality. SOFT TISSUES: See above. VASCULATURE: Unremarkable. Abdominal aorta is non-dilated. LYMPH NODES: Unremarkable. No enlarged lymph nodes. CT/Abdomen/Pelvis W IV Cont ONLY IMPRESSION: Prominent inflammation and mural fat throughout the entire colon. This suggests pancolitis. Electronically Signed: Aleksandr Hart MD at 15:30 EDT , CC: KUSHAL Amaya; Dr. Roderick Argueta MD Lead Radiologic Technologist: Signed Normal [facility] CBC W/Diff, Automatedon 12-04 Absolute Lymph 0.59 X10 3/uL Low 0.83-4.51 [facility] Comment on above: Performed By: #### L 501.2450, L100.0100, L500.4050 ####[facility] [address] [place], [address] Absolute Neut 7.5 X10 3/uL Normal 2.0-7.7 [facility] Comment on above: Performed By: #### L 501.2450, L100.0100, L500.4050 ####[facility] [address] [place], [address] Basophils/100 WBC (Bld) 0.6 % Normal 0-1 [facility] Comment on above: Performed By: #### L 501.2450, L100.0100, L500.4050 ####[facility] [address] [place], [address] Eosinophils/100 WBC (Bld) 0.0 % Normal 0-5 [facility] Comment on above: Performed By: #### L 501.2450, L100.0100, L500.4050 ####[facility] [address] [place], [address] Erythrocyte distribution width (RBC) [Ratio] 12.5 % Normal 11.6-14.6 [facility] Comment on above: Performed By: #### L 501.2450, L100.0100, L500.4050 ####[facility] [address] [place], [address] Hematocrit (Bld) [Volume fraction] 45.7 % Normal 40-54 [facility] Comment on above: Performed By: #### L 501.2450, L100.0100, L500.4050 ####[facility] [address] [place], [address] Hemoglobin (Bld) [Mass/Vol] 15.1 g/dL Normal 13.0-16.5 [facility] Comment on above: Performed By: #### L 501.2450, L100.0100, L500.4050 ####[facility] [address] [place], [address] IG% 0.300 Normal 0.0-0.9 [facility] Comment on above: Result Comment: IG% - Immature Granulocytes (promyelocytes, myelocytes and metamyelocytes) > 1% indicates that a LEFT SHIFT is Present. Performed By: #### L 501.2450, L100.0100, L500.4050 ####[facility] [address] [place], [address] Lymphocytes/100 WBC (Bld) 6.6 % Low 19-41 [facility] Comment on above: Performed By: #### L 501.2450, L100.0100, L500.4050 ####[facility] [address] [place], [address] MCH (RBC) [Entitic mass] 27.1 pg Normal 27.0-32.0 [facility] Comment on above: Performed By: #### L 501.2450, L100.0100, L500.4050 ####[facility] [address] [place], [address] MCHC (RBC) [Mass/Vol] 33.0 g/dL Normal 32-36 [facility] Comment on above: Performed By: #### L 501.2450, L100.0100, L500.4050 ####[facility] [address] [place], [address] MCV (RBC) [Entitic vol] 82.0 fL Normal 80-94 [facility] Comment on above: Performed By: #### L 501.2450, L100.0100, L500.4050 ####[facility] [address] [place], [address] Monocytes/100 WBC (Bld) 9.2 % Normal 0-10 [facility] Comment on above: Performed By: #### L 501.2450, L100.0100, L500.4050 ####[facility] [address] [place], [address] Neutrophils/100 WBC (Bld) 83.3 % High 47-70 [facility] Comment on above: Performed By: #### L 501.2450, L100.0100, L500.4050 ####[facility] [address] [place], [address] Nucleated RBC (Bld) [#/Vol] 0 10*3/uL Normal 0-5 [facility] Comment on above: Performed By: #### L 501.2450, L100.0100, L500.4050 ####[facility] [address] [place], [address] Platelet mean volume (Bld) [Entitic vol] 8.8 fL Normal 6.2-12.0 [facility] Comment on above: Performed By: #### L 501.2450, L100.0100, L500.4050 ####[facility] [address] [place], [address] Platelets (Bld) [#/Vol] 292 10*3/uL Normal 150-450 [facility] Comment on above: Performed By: #### L 501.2450, L100.0100, L500.4050 ####[facility] [address] [place], [address] RBC (Bld) [#/Vol] 5.57 10*6/uL Normal 4.6-6.2 [facility] Comment on above: Performed By: #### L 501.2450, L100.0100, L500.4050 ####[facility] [address] [place], [address] RDW SD 38.0 fl Normal 35.1-43.9 [facility] Comment on above: Performed By: #### L 501.2450, L100.0100, L500.4050 ####[facility] [address] [place], [address] WBC (Bld) [#/Vol] 9.0 10*3/uL Normal 4.4-11.0 [facility] Comment on above: Performed By: #### L 501.2450, L100.0100, L500.4050 ####[facility] [address] [place], [address] Comprehensive Metabolic Prof [facility] 12-18-2023 Albumin [Mass/Vol] 3.6 g/dL Normal 3.2-5.0 [facility] Comment on above: Performed By: #### L 501.2450, L100.0100, L500.4050 ####[facility] [address] [place], [address] Albumin/Globulin [Mass ratio] 0.8 {ratio} Low 0.9-2.4 [facility] Comment on above: Performed By: #### L 501.2450, L100.0100, L500.4050 ####[facility] [address] [place], [address] ALK P 132 U/L High 45-117 [facility] Comment on above: Performed By: #### L 501.2450, L100.0100, L500.4050 ####[facility] [address] [place], [address] ALT [Catalytic activity/Vol] 36 U/L Normal 16-61 [facility] Comment on above: Performed By: #### L 501.2450, L100.0100, L500.4050 ####[facility] [address] [place], [address] AST [Catalytic activity/Vol] 27 U/L Normal 15-37 [facility] Comment on above: Performed By: #### L 501.2450, L100.0100, L500.4050 ####[facility] [address] [place], [address] Bilirubin [Mass/Vol] 0.50 mg/dL Normal 0.20-1.00 [facility] Comment on above: Result Comment: For patients on eltrombopag therapy, use of Dimension Pilger TBIL is not recommended. Performed By: #### L 501.2450, L100.0100, L500.4050 ####[facility] [address] [place], [address] BUN/CRE 14.6 RATIO Normal 10-20 [facility] Comment on above: Performed By: #### L 501.2450, L100.0100, L500.4050 ####[facility] [address] [place], [address] CA,Total 9.0 mg/dL Normal 8.5-10.1 [facility] Comment on above: Performed By: #### L 501.2450, L100.0100, L500.4050 ####[facility] [address] [place], [address] Chloride [Moles/Vol] 105 mmol/L Normal 98-107 [facility] Comment on above: Performed By: #### L 501.2450, L100.0100, L500.4050 ####[facility] [address] [place], [address] CO2 [Moles/Vol] 25.0 mmol/L Normal 21.0-32.0 [facility] Comment on above: Performed By: #### L 501.2450, L100.0100, L500.4050 ####[facility] [address] [place], [address] Creatinine [Mass/Vol] 1.03 mg/dL Normal 0.70-1.30 [facility] Comment on above: Result Comment: The validity of the calculated GFR GFRAA in patients over 70 years has not been determined. Clinical correlation is essential. Performed By: #### L 501.2450, L100.0100, L500.4050 ####[facility] [address] [place], [address] ECRCL 149.27 ml/min Normal [facility] Comment on above: Performed By: #### L 501.2450, L100.0100, L500.4050 ####[facility] [address] [place], [address] EST GFR - AA 119 mL/min Normal >60 [facility] Comment on above: Result Comment: Afri can Japanese GFR Calc Performed By: #### L 501.2450, L100.0100, L500.4050 ####[facility] [address] [place], [address] GAP 7 Normal 5-15 [facility] Comment on above: Performed By: #### L 501.2450, L100.0100, L500.4050 ####[facility] [address] [place], [address] GFR/1.73 sq M.predicted among non-blacks MDRD (S/P/Bld) [Vol rate/Area] 98 mL/min/{1.73_m2} Normal >60 [facility] Comment on above: Result Comment: Non- GFR Calc Performed By: #### L 501.2450, L100.0100, L500.4050 ####[facility] [address] [place], [address] Globulin (S) [Mass/Vol] 4.3 g/dL High 2.2-4.2 [facility] Comment on above: Performed By: #### L 501.2450, L100.0100, L500.4050 ####[facility] [address] [place], [address] Glucose [Mass/Vol] 117 mg/dL High 74-106 [facility] Comment on above: Result Comment: Fast ing Glucose result from 100 to 125 mg/dL suggests IMPAIRED HOMEOSTASIS per A.D.A. criteria. Performed By: #### L 501.2450, L100.0100, L500.4050 ####[facility] [address] [place], [address] Potassium [Moles/Vol] 3.2 mmol/L Low 3.5-5.1 [facility] Comment on above: Performed By: #### L 501.2450, L100.0100, L500.4050 ####[facility] [address] [place], [address] Sodium [Moles/Vol] 137 mmol/L Normal 136-145 [facility] Comment on above: Performed By: #### L 501.2450, L100.0100, L500.4050 ####[facility] [address] [place], [address] T PROT 7.9 g/dL Normal 6.4-8.2 [facility] Comment on above: Performed By: #### L 501.2450, L100.0100, L500.4050 ####[facility] [address] [place], [address] Urea nitrogen [Mass/Vol] 15 mg/dL Normal 7-18 [facility] Comment on above: Performed By: #### L 501.2450, L100.0100, L500.4050 ####[facility] [address] [place], [address] Emergency Department Summary on 12-18-2023 Emergency Department Summary [facility] Medical Records Department [address] [place] [address] Emergency Department Summary 12/18/23 MR#: [id number] Acct: [id number] Name: JULIET MORRIS Rep #: [id number] : 2005 18 From: Roderick Chan DO PCP: Dr. Roderick Argueta MD Status:DEP ER Location: ED HPI History of Present Illness Chief Complaint: Abd Pain Narrative Narrative: Patient is a 18-year-old male with history of GERD, chronic abdominal pain with colitis, presenting to the emerged part with ongoing pain to his abdomen. Patient states that his lower abdomen has been much worse over the last several days. Patient dates much worse yesterday and today. He states he feels nauseous, he is having diarrhea. Denies any blood in his stool or vomit. Patient does see a GI specialist Dr. Roberts, he did have a scope down his nose, the looked unremarkable. They did put him on something for GERD. Patient did have a CT scan in August which showed colitis. Patient states that the pain is worse in his lower abdomen he is here for evaluation. [facility] Home Medications ???Medication ???Instructions ???Recorded ???Last Taken ???Type amoxicillin 875 mg-potassium 1 tab PO BID #20 tabs 12/18/23 Unknown Rx clavulanate 125 mg tablet dicyclomine 20 mg tablet 20 mg PO TID #20 tabs 12/18/23 Unknown Rx ondansetron 4 mg disintegrating 4 mg PO Q8H PRN PRN Nausea #10 tabs 12/18/23 Unknown Rx tablet rabeprazole 20 mg tablet,delayed 20 mg PO Q24H 12/18/23 12/16/23 History release Allergy/AdvReac Type Severity Reaction Status Date / Time iodine Allergy Other Verified 12/18/23 13:58 Family History Father Asthma Surgical History No pertinent past surgical history Social History Smoking Status: Never smoker ROS ROS ED ROS Narrative Constitutional: Negative for fever, chills, weight loss, weakness Eyes: Negative for vision loss, vision change, double vision ENT: Negative for any sore throat, ear pain, congestion Cardiovascular: Negative for any chest pain, tightness, palpitations Respiratory: Negative for any cough, sputum production, hemoptysis, dyspnea, dyspnea on exertion, orthopnea Gastrointestinal: Negative for any vomiting, constipation, blood in stool, blood in vomit. Positive for abdominal pain, nausea, diarrhea : Negative for any urinary frequency, dysuria, retention, blood in urine Muscle skeletal: Negative for any neck pain, back pain Neurological: Negative for any headache, syncope, dizziness Skin: Negative for any rashes, itching, abrasions, lacerations Psychiatric: Negative for any depression, anxiety, stress, suicidal ideation, homicidal ideation Hematologic: Negative for any excessive bruising, easy bleeding EXAM Physical Exam Narrative Exam Narrative: Vital signs reviewed. Patient appears anxious however vital signs are stable. HEET: Head normocephalic atraumatic, TMs clear bilaterally. Posterior pharynx is clear, moist mucous membranes. Nares clear bilaterally. Neck: Supple with no lymphadenopathy or tenderness. No signs of meningismus. Cardiac: Regular rate and rhythm no murmurs gallops or rubs, equal peripheral pulses bilaterally. Respiratory: Lungs clear to auscultation bilaterally. No chest tenderness. Abdomen: Soft, nondistended. No abdominal bruit or pulsatile masses. No hepatosplenomegaly. Tenderness to both the right and left lower quadrants, significant tenderness just periumbilical. No peritoneal signs. Extremities: No peripheral edema, no signs of gross trauma or deformity. Active full range of motion of all extremities. Neuro: Cranial nerves II through XII intact, no focal neurological deficits. Skin: Clean dry and intact with no rash, purpura, petechiae, vesicles or pustules. Backs/flank: No CVA tenderness, no midline spinal tenderness, no deformity. Psych: Normal mood and affect. No SI, HI or acute psychosis. Const Vital Signs: 12/18/23 13:58 Temperature 98.8 F Temperature Source Temporal Pulse Rate 105 H Respiratory Rate 18 Blood Pressure 135/61 H Blood Pressure Mean 85 Pulse Ox 98 Oxygen Delivery Method Room Air Positive well nourished and well developed General Appearance ED: well developed Physical Exam Const Vital Signs: 12/18/23 13:58 Temperature 98.8 F Temperature Source Temporal Pulse Rate 105 H Respiratory Rate 18 Blood Pressure 135/61 H Blood Pressure Mean 85 Pulse Ox 98 Oxygen Delivery Method Room Air MDM MDM Lab Data Labs: Laboratory Results - last 24 hr 12/18/23 14:28 WBC 9.0 RBC 5.57 Hgb 15.1 Hct 45.7 MCV 82.0 MCH 27.1 (more content not included)... Normal [facility] Lipaseon 12-18-2023 Lipase [Catalytic activity/Vol] 15 U/L Normal 13-75 [facility] Comment on above: Result Comment: Duglas bryant note: LIPASE revised reference range effective 22. New Lipase methodology. Expected to produce lower values than the previous assay method. NEW Reference Range: 13 - 75 U/L Performed By: #### L 501.2450, L100.0100, L500.4050 ####[facility] [address] [place], [address] Urinalysis, Completeon 12-17 BACTERIA Normal None Seen [facility] Comment on above: Order Comment: CLEAN CATCH Result Comment: PT D ISCHARGED Performed By: #### L 400.0001 ####[facility] [address] [place], [address] BILIRUBIN URINE Normal Negative [facility] Comment on above: Order Comment: CLEAN CATCH Result Comment: PT D ISCHARGED Performed By: #### L 400.0001 ####[facility] [address] [place], [address] Clarity (U) Normal Clear [facility] Comment on above: Order Comment: CLEAN CATCH Result Comment: PT D ISCHARGED Performed By: #### L 400.0001 ####[facility] [address] [place], [address] Color (U) Normal Yellow [facility] Comment on above: Order Comment: CLEAN CATCH Result Comment: PT D ISCHARGED Performed By: #### L 400.0001 ####[facility] [address] [place], [address] EPI,SQUAMOUS Normal 0-5 [facility] Comment on above: Order Comment: CLEAN CATCH Result Comment: PT D ISCHARGED Performed By: #### L 400.0001 ####[facility] [address] [place], [address] GLUCOSE, UR Normal Normal [facility] Comment on above: Order Comment: CLEAN CATCH Result Comment: PT D ISCHARGED Performed By: #### L 400.0001 ####[facility] [address] [facility] [address] KETONE UR Normal Negative [facility] Comment on above: Order Comment: CLEAN CATCH Result Comment: PT D ISCHARGED Performed By: #### L 400.0001 ####[facility] [address] [place] [id number] LEUK ESTERASE Normal Negative [facility] Comment on above: Order Comment: CLEAN CATCH Result Comment: PT D ISCHARGED Performed By: #### L 400.0001 ####[facility] [address] [place] [address] Mucus Ql (Urine sed) Normal [facility] Comment on above: Order Comment: CLEAN CATCH Result Comment: PT D ISCHARGED Performed By: #### L 400.0001 ####[facility] [address] [place], [address] Nitrite Ql (U) Normal Negative [facility] Comment on above: Order Comment: CLEAN CATCH Result Comment: PT D ISCHARGED Performed By: #### L 400.0001 ####[facility] [address] [facility] [address] OCCULT BLOOD-UR Normal Negative [facility] Comment on above: Order Comment: CLEAN CATCH Result Comment: PT D ISCHARGED Performed By: #### L 400.0001 ####[facility] [address] [facility] [address] pH UR Normal 5.0 - 8.0 [facility] Comment on above: Order Comment: CLEAN CATCH Result Comment: PT D ISCHARGED Performed By: #### L 400.0001 ####[facility] [address] [place], [address] PROT DIPSTX Normal Negative [facility] Comment on above: Order Comment: CLEAN CATCH Result Comment: PT D ISCHARGED Performed By: #### L 400.0001 ####[facility] [address] [place], [address] RBC Normal 0-5 [facility] Comment on above: Order Comment: CLEAN CATCH Result Comment: PT D ISCHARGED Performed By: #### L 400.0001 ####[facility] [address] [place], [address] SP.GR. DIPSTX Normal 1.002-1.030 [facility] Comment on above: Order Comment: CLEAN CATCH Result Comment: PT D ISCHARGED Performed By: #### L 400.0001 ####[facility] [address] [place], [address] UR Preservative Normal [facility] Comment on above: Order Comment: CLEAN CATCH Result Comment: PT D ISCHARGED Performed By: #### L 400.0001 ####[facility] [address] [place], [address] UROBILI Normal Normal [facility] Comment on above: Order Comment: CLEAN CATCH Result Comment: PT D ISCHARGED Performed By: #### L 400.0001 ####[facility] [address] [place], [address] WBC Normal 0-5 [facility] Comment on above: Order Comment: CLEAN CATCH Result Comment: PT D ISCHARGED Performed By: #### L 400.0001 ####[facility] [address] [place], [address] Final Surgical Pathology Rep sherry 11-17-2023 Final Surgical Pathology Report . Pathology Reports Accession: Collected Date/Time: Received Date/Time: Pathologist: [id number] 11/15/2023 09:14 EDT 11/16/2023 09:14 EDT MD [...] All parts labelled with patient name and [id number]. Received in formalin labeled gastric/antrum biopsy are 5 castellon-pink tissue fragments measuring 0.2 to 0.6 x 0.1 cm. TS-1 B. Received in formalin labeled esophageal biopsy are multiple castellon tissue fragments aggregating 1.1 x 0.4 x 0.1 cm. TS-1 Barby Sheridan, Grossing Credit Processor/ Dr. Sriram Palencia, Pathologist Dictated by Barby Sheridan MICROSCOPIC DESCRIPTION: The microscopic examination is performed, except in the case of Gross Only. Electronically Signed by Pathology Report verified by [facility] CLARENCE LANDAVERDE MD Sign out Date: 11/17/2023 11:38 Performing Lab: [facility], [address] [place] [address] Pathology Dept Disclaimer If ancillary studies were utilized, the following Laboratory Developed Test (LDT) disclaimer will apply: Under CLIA requirements, [facility] is qualified to perform high complexity testing. For all ancillary stains, positive and negative controls stain appropriately. Performance characteristics of immunohistochemical and chromogenic in-situ hybridization tests have been determined by [facility]. These tests are used for clinical purposes, They should not be regarded as investigational or for research. Normal [facility] ([place] CNOVon 09-10-2023 CNOV Office Visit ([facility]WSTR ) JULIET MORRIS ([id number]) 3 M Date Time Provider Department 09/10/23 11:15 AM RENATA CABALLERO [facility]WSTR During your visit today, we recorded the [...] 883.0, ICD10: S61.211A JENSEN Garcia TEACHING PROVIDER (Physician/PA/ELECTRICAL TESTER) NOTE OF PERSONAL INVOLVEMENT IN CARE: I have personally seen and examined the patient and performed the medical decision-making components. I have reviewed the Advanced Practice Registered Nurse (ELECTRICAL TESTER) Student's documentation and verified the findings in the note as written. Any additions or changes are noted in bold/italics. Signature: Renata Caballero Date: 09/10/2023 Time: 11:49 AM Renata Caballero APRN.SOCIAL WELFARE ADMINISTRATOR 09/10/2023 11:50 AM Signed ASSESSMENT/PLAN: 1. Laceration [...] Order(s):TDAP VACCINE, AGE 7+ YR (ADACEL, BOOSTRIX) [[id number]] Order #: [id number] Prescriptions as of 09/10/2023 - mometasone (ELOCON) [...] for Encounter Date Provider Department Center 09/10/2023 [id number], KA*[facility] Encounter Status:Closed by RENATA CABALLERO on 09/10/23 Normal [facility] Clostridioides difficile nuc leic acid assay by PCROrdered By: Roderick Argueta on 08-19-2023 C. difficile DNA LUIS+probe Ql (Unsp spec) [facility] Gastrointestinal pathogens p marcell LUIS+probe (Stl)Ordered By: Roderick Argueta on 08-19-2023 Enteric Bacteriology Norovirus [facility] Absolute lymphocyte countOrd ered By: Roderick Argueta on 08-16-2023 Lymphocytes Auto (Unsp spec) [#/Vol] 1.98 10*3/uL 0.83-4.51 [facility] Automated lymphocyte count a s percentage of total leukocytesOrdered By: Roderick Argueta on 08-16-2023 Lymphocytes/100 WBC Auto (Unsp spec) 35.4 % 19-41 [facility] Basophil percentageOrdered B y: Roderick Argueta on 08-16-2023 Basophils/100 WBC (Bld) 1.3 % 0-1 [facility] Bilirubin [Mass/Vol] 0.40 mg/dL 0.20-1.00 [facility] Comment on above: For patients on eltr ombopag therapy, use of Dimension Pilger TBIL is not recommended. Chloride [Moles/Vol] 109 mmol/L 98-107 [facility] Eosinophils/100 WBC (Bld) 2.5 % 0-5 [facility] Glucose [Mass/Vol] 94 mg/dL 74-106 [facility] Hemoglobin (Bld) [Mass/Vol] 14.7 g/dL 13.0-16.5 [facility] Monocytes/100 WBC (Bld) 13.6 % 0-10 [facility] Neutrophils (Bld) [#/Vol] 2.6 10*3/uL 2.0-7.7 [facility] Neutrophils/100 WBC (Bld) 47.0 % 47-70 [facility] Potassium [Moles/Vol] 3.6 mmol/L 3.5-5.1 [facility] Protein [Mass/Vol] 8.1 g/dL 6.4-8.2 [facility] Sodium [Moles/Vol] 139 mmol/L 136-145 [facility] WBC (Bld) [#/Vol] 5.6 10*3/uL 4.4-11.0 [facility] Chocolate IgE serumOrdered B y: Roderick Argueta on 08-16-2023 Chocolate IgE Qn (S) <0.10 kU/L Class 0 [facility] Determination of erythrocyte mean corpuscular volume (MCV)Ordered By: Roderick Argueta on 08-16-2023 MCV (RBC) [Entitic vol] 81.4 fL 80-94 [facility] Erythrocyte distribution wid th ratioOrdered By: Roderick Argueta on 08-16-2023 Erythrocyte distribution width (RBC) [Ratio] 12.7 % 11.6-14.6 [facility] Erythrocyte distribution wid th standard deviationOrdered By: Roderick Argueta on 08-16-2023 Erythrocyte distribution width (RBC) [Entitic vol] 37.4 fL 35.1-43.9 [facility] Erythrocyte sedimentation ra teOrdered By: Roderick Argueta on 08-16-2023 ESR (Bld) [Velocity] 9 mm/h 0-20 [facility] Hematocrit Auto (Bld) [Volum e fraction]Ordered By: Roderick Argueta on 08-16-2023 Hematocrit (Bld) [Volume fraction] 45.1 % 40-54 [facility] Immature granulocytes/100 WB C Auto (Bld)Ordered By: Roderick Argueta on 08-16-2023 Immature granulocytes/100 WBC (Bld) 0.200 % 0.0-0.9 [facility] Comment on above: IG% - Immature Granu locytes (promyelocytes, myelocytes and metamyelocytes) > 1% indicates that a LEFT SHIFT is Present. Laboratory - Chemistry and C hemistry - challengeOrdered By: Roderick Argueta on 08-16-2023 Albumin/Globulin [Mass ratio] 1.0 {ratio} 0.9-2.4 [facility] ALP [Catalytic activity/Vol] 151 U/L 45-117 [facility] ALT [Catalytic activity/Vol] 45 U/L 16-61 [facility] CO2 [Moles/Vol] 24.0 mmol/L 21.0-32.0 [facility] Globulin (S) [Mass/Vol] 4.1 g/dL 2.2-4.2 [facility] Urea nitrogen/Creatinine [Mass ratio] 11.1 mg/mg 10-20 [facility] Laboratory - Hematology and Cell countsOrdered By: Roderick Argueta on 08-16-2023 MCH (RBC) [Entitic mass] 26.5 pg 27.0-32.0 [facility] MCHC (RBC) [Mass/Vol] 32.6 g/dL 32-36 [facility] Nucleated RBC/100 WBC (Bld) [Ratio] 0 % 0-5 [facility] Platelet mean volume (Bld) [Entitic vol] 9.7 fL 6.2-12.0 [facility] Platelets (Bld) [#/Vol] 380 10*3/uL 150-450 [facility] Laboratory - Miscellaneous t estsOrdered By: Roderick Argueta on 08-16-2023 Service comment (Unsp spec) [Interp] Comment . [facility] Comment on above: Levels of Specific I gE Class Description of Class ----- < 0.10 0 Negative 0.10 - 0.31 0/I Equivocal/Low 0.32 - 0.55 I Low 0.56 - 1.40 II Moderate 1.41 - 3.90 III High 3.91 - 19.00 IV Very High 19.01 - 100.00 V Very High >100.00 Very High No Panel InformationOrdered By: Roderick Argueta on 08-16-2023 CHERELLE 8 Profile Comment . [facility] [facility] Comment on above: Autoantibody Disease Association Condition Frequency Antinuclear Antibody, SLE, mixed connectiveDirect (CHERELLE-D) tissue diseases dsDNA SLE 40 - 60% Chromatin Drug induced SLE 90% SLE 48 - 97% SSA (Ro) SLE 25 - 35% Sjogren's Syndrome 40 - 70% Lupus 100% SSB (La) SLE 10% Sjogren's Syndrome 30% Sm (anti-Argueta) SLE 15 - 30% RNP Mixed Connective Tissue Disease 95%(U1 nRNP, SLE 30 - 50%anti-ribonucleoprotein) Polymyositis and/or Dermatomyositis 20% Scl-70 (antiDNA Scleroderma (diffuse) 20 - 35%topoisomerase) Crest 13% Jo-1 Polymyositis and/or Dermatomyositis 20 - 40% Centromere B Scleroderma - Crest variant 80% Ribosomal P SLE 10 - 20% Anti-Gliadin IgA Antibody 9 units 0-19 [facility] Comment on above: Negative 0 - 19 Weak Positive 20 - 30 Moderate to Strong Positive >30 Anti-Gliadin IgG Antibody 7 units 0-19 [facility] Comment on above: Negative 0 - 19 Weak Positive 20 - 30 Moderate to Strong Positive >30 C-Reactive Protein Extended Range < 2.90 mg/L 0.0-3.0 [facility] Comment on above: C-Reactive Protein ( CRP) provides useful information for thediagnosis, therapy and monitoring of inflammatory processesand associated diseases. For the evaluation of Relative Riskfor Cardiovascular Disease, a High Sensitivity CRP (HSCRP)should be ordered. Centromere B Antibody <0.2 AI 0.0-0.9 [facility] Endomysial IgA Antibody Negative Negative [facility] Estimated GFR (MDRD) Amer 139 mL/min >60 [facility] Comment on above: GFR Calc Estimated GFR (MDRD) Non-Af Amer 115 mL/min >60 [facility] Comment on above: Non- GFR Calc Immunoglobulin A 172 mg/dL 90-386 [facility] Comment on above: Performed at: [address] [id number] Director: Chente Bernabe PhD, Phone: [phone] CONNIE-1 Antibody <0.2 AI 0.0-0.9 [facility] Mussel Allergen IgE Antibody <0.10 kU/L Class 0 [facility] OCULAR CARE TECHNOLOGIST Antibody <0.2 AI 0.0-0.9 [facility] Shrimp Allergen <0.10 kU/L Class 0 [facility] SM Antibody <0.2 AI 0.0-0.9 [facility] SS-A/Ro IgG Antibody < 0.2 AI 0.0-0.9 [facility] SS-B/La IgG Antibody < 0.2 AI 0.0-0.9 [facility] Tissue Transglutaminase IgG Ab 7 U/mL 0-5 [facility] Comment on above: Negative 0 - 5 Weak Positive 6 - 9 Positive >9 RBC Auto (Bld) [#/Vol]Ordere d By: Roderick Argueta on 08-16-2023 RBC (Bld) [#/Vol] 5.54 10*6/uL 4.6-6.2 [facility] Serum DNA double strand anti body assay (units/volume)Ordered By: Roderick Argueta on 08-16-2023 DNA double strand Ab Qn (S) 2 [IU]/mL 0-9 [facility] Comment on above: Negative <5 Equivoca l 5 - 9 Positive >9 Serum Scl-70 antibody assay (units/volume)Ordered By: Roderick Argueta on 08-16-2023 SCL-70 extractable nuclear Ab Qn (S) 0.8 AI 0.0-0.9 [facility] Serum beef IgE antibody assa y (units/volume)Ordered By: Roderick Argueta on 08-16-2023 Beef IgE Qn (S) <0.10 kU/L Class 0 [facility] Serum codfish IgE antibody a ssay (units/volume)Ordered By: Roderick Argueta on 08-16-2023 Codfish IgE Qn (S) <0.10 kU/L Class 0 [facility] Serum corn IgE antibody assa y (units/volume)Ordered By: Roderick Argueta on 08-16-2023 Hecker IgE Qn (S) <0.10 kU/L Class 0 [facility] Serum cow milk IgE antibody assay (units/volume)Ordered By: Roderick Argueta on 08-16-2023 Cow milk IgE Qn (S) <0.10 kU/L Class 0 [facility] Serum or plasma calcium nikita urement (mass/volume)Ordered By: Roderick Argueta on 08-16-2023 Calcium [Mass/Vol] 9.6 mg/dL 8.5-10.1 [facility] Serum or plasma creatinine m easurement (mass/volume)Ordered By: Roderick Argueta on 08-16-2023 Creatinine [Mass/Vol] 0.90 mg/dL 0.70-1.30 [facility] Comment on above: The validity of the calculated GFR & GFRAA in patients over 70 years has not been determined. Clinical correlation is essential. Serum or plasma urea nitroge n measurement (mass/volume)Ordered By: Roderick Argueta on 08-16-2023 Urea nitrogen [Mass/Vol] 10 mg/dL 7-18 [facility] Serum peanut IgE antibody as say (units/volume)Ordered By: Roderick Argueta on 08-16-2023 Peanut IgE Qn (S) <0.10 kU/L Class 0 [facility] Serum pork IgE antibody assa y (units/volume)Ordered By: Roderick Argueta on 08-16-2023 Pork IgE Qn (S) <0.10 kU/L Class 0 [facility] Serum salmon IgE antibody as say (units/volume)Ordered By: Roderick Argueta on 08-16-2023 Halstead IgE Qn (S) <0.10 kU/L Class 0 [facility] Serum soybean IgE antibody a ssay (units/volume)Ordered By: Roderick Argueta on 08-16-2023 Soybean IgE Qn (S) <0.10 kU/L Class 0 [facility] Serum tissue transglutaminas e IgA antibody assay (units/volume)Ordered By: Roderick Argueta on 08-16-2023 tTG IgA Qn (S) <2 U/mL 0-3 [facility] Comment on above: Negative 0 - 3 Weak Positive 4 - 10 Positive >10 Tissue Transglutaminase (tTG) has been identified as the endomysial antigen. Studies have demonstr- ated that endomysial IgA antibodies have over 99% specificity for gluten sensitive enteropathy. Serum tuna IgE antibody assa y (units/volume)Ordered By: Roderick Argueta on 08-16-2023 Tuna IgE Qn (S) <0.10 kU/L Class 0 [facility] Serum wheat IgE antibody ass ay (units/volume)Ordered By: Roderick Argueta on 08-16-2023 Wheat IgE Qn (S) <0.10 kU/L Class 0 [facility] Serum whole egg IgE antibody assay (units/volume)Ordered By: Roderick Argueta on 08-16-2023 Whole Egg IgE Qn (S) <0.10 kU/L Class 0 [facility] Comment on above: Performed at: [address] [id number] Director: Chente Bernabe PhD, Phone: [phone] at: [facility] [address] [id number] Director: Kayleigh Mcadams MD, Phone: [phone] Thin prep Papanicolaou smear with manual screeningOrdered By: Roderick Argueta on 08-16-2023 Thin prep Papanicolaou smear with manual screening 4.0 g/dL 3.2-5.0 [facility] Thin prep Papanicolaou smear with manual screening 33 U/L 15-37 [facility] Thin prep Papanicolaou smear with manual screening 6 5-15 [facility] CNOVon 07-02-2023 CNOV Office Visit ([facility] ) KHANHJULIET ([id number]) 3 M Date Time Provider Department 07/02/23 11:45 AM VENKAT VLADIMIR [facility] During your visit today, we recorded the following information about you: Temperature Pulse Respiration Blood pressure 97.3 degrees 54/minute 18/minute 110/61 Weight 110.7 kg Vladimir Cruz APRN.SOCIAL WELFARE ADMINISTRATOR 07/02/2023 1:08 PM Signed Subjective HPI Nontoxic-appearing [...] of care. This note was generated using [employer]Mango[employer] software. It may contain errors in wording, punctuation, or spelling. Vladimir Cruz APRN.SOCIAL WELFARE ADMINISTRATOR Allergies As of Date: 07/02/2023 Noted Allergy Reaction IODINE 05/12/2022 14 - Other: See Comments Date Reviewed: 07/02/2023 Reviewed by: Vladimir Cruz APRN.SOCIAL WELFARE ADMINISTRATOR - Fully Assessed Reason for Visit: [facility] (Worker's Comp) [4136] Cmt: L hand thumb injury x1 day Primary Visit Diagnosis:Hand pain, left [M79.642] Order(s):XR HAND GENERAL 3V PA/LAT/OBL LEFT [[id number]] Order #: [id number] FUTURE Prescriptions as of 07/02/2023 - loratadine (CLARITIN ORAL) Take by mouth. Problem List As Of Date: 07/02/2023 (None) Level of Service: OFFICE/OUTPATIENT ESTABLISHED [facility] 20 MIN [97422] [place] (more content not included)... Normal [facility] XR HAND 3V PA/LAT/OBL LTon 0 [...] No radiographic evidence of acute osseous injury. Lead Radiologic Technologist: LY Transcribe Date/Time: Jul 02 2023 12:36P Dictated by : ALISIA STEARNS MD This examination was interpreted and the report reviewed and electronically signed by: ALISIA STEARNS MD on Jul 02 2023 12:36PM EST [id number] Normal [facility] XR HAND GENERAL 3V PA/LAT/OB L LEFTon 07-02-2023 [facility] XR Hand - left PA and Latera l and Obliqueon 07-02-2023 IMPRESSION: No radiographic evidence of acute osseous injury. Lead Radiologic Technologist: LY Transcribe Date/Time: Jul 02 2023 12:36P Dictated [...] DIVISION OF RADIOLOGY Provider, [facility] - 07/02/2023 * * *Final Report* * [...] No radiographic evidence of acute osseous injury. Lead Radiologic Technologist: [facility] Transcribe Date/Time: Jul 02 2023 12:36P Dictated by : ALISIA STEARNS MD This examination was interpreted and the report reviewed and electronically signed by: ALISIA STEARNS MD on Jul 02 2023 12:36PM EST [facility] Radiology Study observation (narrative) [facility] XR Hand - left PA and Latera l and ObliqueOrdered By: Ccf Provider on 07-02-2023 [facility] Absolute lymphocyte countOrd ered By: Dr. Argueta on 08-09-2022 Lymphocytes Auto (Unsp spec) [#/Vol] 1.58 10*3/uL 0.83-4.51 [facility] Basophil percentageOrdered B y: Dr. Argueta on 08-09-2022 Basophils/100 WBC (Bld) 1.6 % 0-1 [facility] Eosinophils/100 WBC (Bld) 10.4 % 0-3 [facility] Neutrophils (Bld) [#/Vol] 2.0 10*3/uL 2.0-7.7 [facility] Neutrophils/100 WBC (Bld) 41.5 % 34-64 [facility] WBC (Bld) [#/Vol] 4.9 10*3/uL 4.5-13.0 [facility] Basophil percentage < 0.2 AI 0.0-0.9 [facility] Bilirubin [Mass/Vol] 0.40 mg/dL 0.20-1.00 [facility] Comment on above: For patients on eltr ombopag therapy, use of Dimension Pilger TBIL is not recommended. Chloride [Moles/Vol] 106 mmol/L 98-107 [facility] Glucose [Mass/Vol] 101 mg/dL 74-106 [facility] Comment on above: Fasting Glucose resu lt from 100 to 125 mg/dL suggests IMPAIRED HOMEOSTASIS per A.D.A. criteria. Potassium [Moles/Vol] 4.1 mmol/L 3.5-5.1 [facility] Protein [Mass/Vol] 8.4 g/dL 6.4-8.2 [facility] Sodium [Moles/Vol] 140 mmol/L 136-145 [facility] Blood erythrocytes count (nu mber/volume)Ordered By: Dr. Argueta on 08-09-2022 RBC (Bld) [#/Vol] 5.39 10*6/uL 4.5-5.1 [facility] Blood hemoglobin measurement (mass/volume)Ordered By: Dr. Argueta on 08-09-2022 Hemoglobin (Bld) [Mass/Vol] 15.1 g/dL 13.0-16.5 [facility] Blood lymphocytes/100 leukoc ytesOrdered By: Dr. Argueta on 08-09-2022 Lymphocytes/100 WBC (Bld) 32.2 % 25-45 [facility] Blood monocytes/100 leukocyt esOrdered By: Dr. Argueta on 08-09-2022 Monocytes/100 WBC (Bld) 13.9 % 3-6 [facility] Blood platelet mean volumeOr dered By: Dr. Argueta on 08-09-2022 Platelet mean volume (Bld) [Entitic vol] 9.6 fL 6.2-12.0 [facility] Determination of erythrocyte mean corpuscular volume (MCV)Ordered By: Dr. Argueta on 08-09-2022 MCV (RBC) [Entitic vol] 84.8 fL 78-96 [facility] Hematocrit Auto (Bld) [Volum e fraction]Ordered By: Dr. Argueta on 08-09-2022 Hematocrit (Bld) [Volume fraction] 45.7 % 36-47 [facility] Laboratory - Chemistry and C hemistry - challengeOrdered By: Dr. Argueta on 08-09-2022 ALP [Catalytic activity/Vol] 148 U/L 52-171 [facility] ALT [Catalytic activity/Vol] 80 U/L 16-61 [facility] CO2 [Moles/Vol] 27.0 mmol/L 21.0-32.0 [facility] Globulin (S) [Mass/Vol] 4.3 g/dL 2.2-4.2 [facility] Urea nitrogen/Creatinine [Mass ratio] 20.6 mg/mg 10-20 [facility] Laboratory - Hematology and Cell countsOrdered By: Dr. Argueta on 08-09-2022 Erythrocyte distribution width (RBC) [Entitic vol] 37.5 fL 35.1-43.9 [facility] Erythrocyte distribution width (RBC) [Ratio] 12.2 % 11.6-14.6 [facility] Immature granulocytes/100 WBC (Bld) 0.400 % 0.0-0.9 [facility] Comment on above: IG% - Immature Granu locytes (promyelocytes, myelocytes and metamyelocytes) > 1% indicates that a LEFT SHIFT is Present. MCH (RBC) [Entitic mass] 28.0 pg 25.0-35.0 [facility] Nucleated RBC/100 WBC (Bld) [Ratio] 0 % 0-5 [facility] MCHC Auto (RBC) [Mass/Vol]Or dered By: Dr. Argueta on 08-09-2022 MCHC (RBC) [Mass/Vol] 33.0 g/dL 32-36 [facility] No Panel InformationOrdered By: Dr. Argueta on 08-09-2022 CHERELLE 8 Profile Comment . [facility] Comment on above: Autoantibody Disease Association Condition Frequency Antinuclear Antibody, SLE, mixed connectiveDirect (CHERELLE-D) tissue diseases dsDNA SLE 40 - 60% Chromatin Drug induced SLE 90% SLE 48 - 97% SSA (Ro) SLE 25 - 35% Sjogren's Syndrome 40 - 70% Lupus 100% SSB (La) SLE 10% Sjogren's Syndrome 30% Sm (anti-Argueta) SLE 15 - 30% RNP Mixed Connective Tissue Disease 95%(U1 nRNP, SLE 30 - 50%anti-ribonucleoprotein) Polymyositis and/or Dermatomyositis 20% Scl-70 (antiDNA Scleroderma (diffuse) 20 - 35%topoisomerase) Crest 13% Jo-1 Polymyositis and/or Dermatomyositis 20 - 40% Centromere B Scleroderma - Crest variant 80% Ribosomal P SLE 10 - 20% Anti-Nuclear Antibody Screen Positive Negative [facility] Comment on above: Performed at: [place] [id number] Director: Chente Bernabe PhD, Phone: [phone] Centromere B Antibody <0.2 AI 0.0-0.9 [facility] Estimated GFR (MDRD) Amer 166 mL/min >60 [facility] Comment on above: GFR Calc Estimated GFR (MDRD) Non-Af Amer 137 mL/min >60 [facility] Comment on above: Non- GFR Calc OCULAR CARE TECHNOLOGIST Antibody 0.2 AI 0.0-0.9 [facility] Platelets bldOrdered By: Dr. Argueta on 08-09-2022 Platelets (Bld) [#/Vol] 370 10*3/uL 150-450 [facility] Serum DNA double strand anti body assay (units/volume)Ordered By: Dr. Argueta on 08-09-2022 DNA double strand Ab Qn (S) 2 [IU]/mL 0-9 [facility] Comment on above: Negative <5 Equivoca l 5 - 9 Positive >9 Serum Connie-1 antibody assay (u nits/volume)Ordered By: Dr. Argueta on 08-09-2022 Connie-1 extractable nuclear Ab Qn (S) <0.2 AI 0.0-0.9 [facility] Serum Scl-70 extractable nuc lear antibody assay (units/volume)Ordered By: Dr. Argueta on 08-09-2022 SCL-70 extractable nuclear Ab Qn (S) 1.1 AI 0.0-0.9 [facility] Serum Argueta extractable nucl ear antibody detectionOrdered By: Dr. Argueta on 08-09-2022 Kendall extractable nuclear Ab Ql (S) <0.2 AI 0.0-0.9 [facility] Serum or plasma albumin nikita urement (mass/volume)Ordered By: Dr. Argueta on 08-09-2022 Albumin [Mass/Vol] 4.1 g/dL 3.2-5.0 [facility] Serum or plasma albumin/glob ulin mass ratioOrdered By: Dr. Argueta on 08-09-2022 Albumin/Globulin [Mass ratio] 1.0 {ratio} 0.9-2.4 [facility] Serum or plasma calcium nikita urement (mass/volume)Ordered By: Dr. Argueta on 08-09-2022 Calcium [Mass/Vol] 9.6 mg/dL 8.5-10.1 [facility] Serum or plasma creatinine m easurement (mass/volume)Ordered By: Dr. Argueta on 08-09-2022 Creatinine [Mass/Vol] 0.78 mg/dL 0.70-1.30 [facility] Comment on above: The validity of the calculated GFR & GFRAA in patients over 70 years has not been determined. Clinical correlation is essential. Serum or plasma urea nitroge n measurement (mass/volume)Ordered By: Dr. Argueta on 08-09-2022 Urea nitrogen [Mass/Vol] 16 mg/dL 7-18 [facility] Thin prep Papanicolaou smear with manual screeningOrdered By: Dr. Argueta on 08-09-2022 Thin prep Papanicolaou smear with manual screening 52 U/L 15-37 [facility] Thin prep Papanicolaou smear with manual screening 7 5-15 [facility] Thin prep Papanicolaou smear with manual screening Negative Negative [facility] Comment on above: Lyme antibodies not detected. Reflex testing is notindicated.No laboratory evidence of infection with B. burgdorferi(Lyme disease). Negative results may occur in patientsrecently infected (less than or equal to 14 days) with B.burgdorferi. If recent infection is suspected, repeattesting on a new sample collected in 7 to 14 days isrecommended.Performed at: [address] [id number] Director: Chente Bernabe PhD, Phone: [phone] Vital Signs Date Time Vital Sign Value Performing Clinician Yinka owens 09-10-2023 11:22-0400 Body temperature 97.2 [degF] Renata Caballero ELECTRICAL TESTER.SOCIAL WELFARE ADMINISTRATOR Work Phone: [facility] 09-10-2023 11:22-0400 Body weight 114 kg Renata Caballero ELECTRICAL TESTER.SOCIAL WELFARE ADMINISTRATOR Work Phone: [facility] 09-10-2023 11:22-0400 Diastolic blood pressure 62 mm[Hg] Renata Caballero ELECTRICAL TESTER.SOCIAL WELFARE ADMINISTRATOR Work Phone: [facility] 09-10-2023 11:22-0400 Heart rate 76 /min Renata Caballero ELECTRICAL TESTER.SOCIAL WELFARE ADMINISTRATOR Work Phone: [facility] 09-10-2023 11:22-0400 Respiratory rate 16 /min Renata Caballero ELECTRICAL TESTER.SOCIAL WELFARE ADMINISTRATOR Work Phone: [facility] 09-10-2023 11:22-0400 SaO2% (BldA) [Mass fraction] 98 % Renata Caballero ELECTRICAL TESTER.SOCIAL WELFARE ADMINISTRATOR Work Phone: [facility] 09-10-2023 11:22-0400 Systolic blood pressure 102 mm[Hg] Renata Caballero ELECTRICAL TESTER.SOCIAL WELFARE ADMINISTRATOR Work Phone: [facility] 07-02-2023 11:58-0500 Body temperature 97.3 [degF] Vladimir Cruz ELECTRICAL TESTER.SOCIAL WELFARE ADMINISTRATOR Work Phone: [facility] 07-02-2023 11:58-0500 Body weight 110.68 kg [facility] ELECTRICAL TESTER.SOCIAL WELFARE ADMINISTRATOR Work Phone: [facility] 07-02-2023 11:58-0500 Diastolic blood pressure 61 mm[Hg] [facility] ELECTRICAL TESTER.SOCIAL WELFARE ADMINISTRATOR Work Phone: [facility] 07-02-2023 11:58-0500 Heart rate 54 /min [facility] ELECTRICAL TESTER.SOCIAL WELFARE ADMINISTRATOR Work Phone: [facility] 07-02-2023 11:58-0500 Respiratory rate 18 /min [facility] ELECTRICAL TESTER.SOCIAL WELFARE ADMINISTRATOR Work Phone: [facility] 07-02-2023 11:58-0500 SaO2% (BldA) [Mass fraction] 97 % [facility] ELECTRICAL TESTER.SOCIAL WELFARE ADMINISTRATOR Work Phone: [facility] 07-02-2023 11:58-0500 Systolic blood pressure 110 mm[Hg] [facility] ELECTRICAL TESTER.SOCIAL WELFARE ADMINISTRATOR Work Phone: [facility] 05-11-2023 06:21-0500 Body height 185.[address] Roderick Argueta Work Phone: [facility] 05-11-2023 06:21-0500 Body mass index (BMI) [Percentile] Per age and sex 97.5 % Dr. Roderick Argueta Work Phone: [facility] 05-11-2023 06:21-0500 Body mass index (BMI) [Ratio] 32.3 kg/m2 Dr. Roderick Argueta Work Phone: [facility] 05-11-2023 06:21-0500 Body temperature 97.3 [degF] Dr. Roderick Argueta Work Phone: [facility] 05-11-2023 06:21-0500 Body weight 111.[address] Roderick Argueta Work Phone: [facility] 05-11-2023 06:21-0500 Diastolic blood pressure 74 mm[Hg] Dr. Roderick Argueta Work Phone: [facility] 05-11-2023 06:21-0500 Heart rate 76 /min Dr. Roderick Argueta Work Phone: [facility] 05-11-2023 06:21-0500 Respiratory rate 18 /min Dr. Roderick Argueta Work Phone: [facility] 05-11-2023 06:21-0500 SaO2% (BldA) [Mass fraction] 97 % Dr. Roderick Argueta Work Phone: [facility] 05-11-2023 06:21-0500 Systolic blood pressure 136 mm[Hg] Dr. Roderick Argueta Work Phone: 6([phone] [place] [address] 05-12-2022 07:41-0500 Body height 185.[address] Roderick Argueta Work Phone: [phone] [address] 05-12-2022 07:36-0500 Body mass index (BMI) [Percentile] Per age and sex 96.6 % Dr. Roderick Argueta Work Phone: 2(821)[phone] [place] [address] 05-12-2022 07:36-0500 Body mass index (BMI) [Ratio] 30.4 kg/m2 Dr. Roderick Argueta Work Phone: 4(479)[phone] [address] 05-12-2022 07:36-0500 Body temperature 98 [degF] Dr. Roderick Argueta Work Phone: 2(261)[phone] [address] 05-12-2022 07:36-0500 Body weight 104.[address] Roderick Argueta Work Phone: [facility] 05-12-2022 07:36-0500 Diastolic blood pressure 78 mm[Hg] Dr. Roderick Argueta Work Phone: 1(981)[phone] [address] 05-12-2022 07:36-0500 Heart rate 50 /min Dr. Roderick Argueta Work Phone: [facility] 05-12-2022 07:36-0500 Respiratory rate 18 /min Dr. Roderick Argueta Work Phone: [facility] 05-12-2022 07:36-0500 SaO2% (BldA) [Mass fraction] 96 % Dr. Roderick Argueta Work Phone: [facility] 05-12-2022 07:36-0500 Systolic blood pressure 134 mm[Hg] Dr. Roderick Argueta Work Phone: [facility] 11-08-2021 23:12-0400 Diastolic blood pressure 94 mm[Hg] [facility] Work Phone: 11-08-2021 23:12-0400 Heart rate 68 /min [facility] Work Phone: 11-08-2021 23:12-0400 Respiratory rate 16 /min [facility] Work Phone: 11-08-2021 23:12-0400 SaO2% (BldA) [Mass fraction] 99 % [facility] Work Phone: 11-08-2021 23:12-0400 Systolic blood pressure 151 mm[Hg] [facility] Work Phone: 11-08-2021 22:58-0400 Body height 185.42 cm [facility] Work Phone: 11-08-2021 22:58-0400 Body mass index (BMI) [Ratio] 28.3 kg/m2 [facility] Work Phone: 11-08-2021 22:58-0400 Body temperature 98 [degF] [facility] Work Phone: 11-08-2021 22:58-0400 Body weight 97.52 kg [facility] Work Phone: Encounters Encounter Date Encounter Type Care Provider Facility Start: 06-12-2024 End: 06-12-2024 ambulatory Roderick Argueta Facility:[facility] Start: 05-25-2024 End: 05-25-2024 ambulatory Streamwood Armando Facility:[facility] Start: 05-23-2024 End: 05-23-2024 [facility] Facility:[facility] Start: 03-29-2024 End: 03-29-2024 Emergency department patient visit Roderick Argueta Facility:[facility] Start: 02-07-2024 End: 02-11-[address] CHENTE ROBERTS MD Facility:[facility] Start: 02-07-2024 End: 02-11-[address] CHENTE ROBERTS MD [facility] Start: 01-30-2024 End: 01-30-2024 ambulatory Chente Roberts Facility:[facility] Start: 01-07-2024 End: 01-07-2024 Emergency department patient visit Medhat Miller Facility:[facility] Start: 01-03-2024 End: 01-03-2024 ambulatory [facility] Facility:[facility] Start: 12-18-2023 End: 12-18-2023 Emergency department patient visit Roderick Dawsongilmer Facility:[facility] Start: 12-10-2023 ambulatory RENATA CABALLERO Fac ility:[facility] Start: 11-15-2023 End: 11-19-[address] CHENTE ROBERTS MD Facility:[facility] Start: 11-15-2023 End: 11-19-[address] CHENTE ROBERTS MD [facility] Start: 09-10-2023 End: 09-10-2023 ambulatory RENATA CABALLERO Facility:[facility] Start: 09-10-2023 End: 09-10-2023 Patient encounter procedure Renata Caballero ELECTRICAL TESTER.SOCIAL WELFARE ADMINISTRATOR Work Phone: [facility] Comment on above: Laceration of right ring finger without foreign body without damage to nail, initial encounter (Primary Dx); Laceration of left index finger without foreign body without damage to nail, initial encounter Start: 08-19-2023 End: 08-19-[address] Roderick Argueta Work Phone: [facility] Work Phone: Start: 08-19-2023 End: 08-19-[address] [facility] Phone: Start: 08-16-2023 End: 08-16-[address] Roderick Argueta Work Phone: [facility] Work Phone: Start: 08-16-2023 End: 08-16-[address] Roderick Argueta Work Phone: [facility]-Cat Scan, [facility] Work Phone: Start: 07-02-2023 End: 07-02-2023 Subsequent hospital visit by physician [facility] Work Phone: Radiology Comment on above: Hand pain, left [[id number] .642] Start: 07-02-2023 End: 07-02-2023 ambulatory [facility] Facility:[facility] Start: 07-02-2023 End: 07-02-2023 Office outpatient visit 15 minutes [facility] ELECTRICAL TESTER.SOCIAL WELFARE ADMINISTRATOR Work Phone: [facility] Comment on above: Hand pain, left (Mona anjana Dx) Start: 05-11-2023 End: 05-11-[address] Roderick Argueta [facility] Work Phone: Start: 08-09-2022 End: 08-09-[address] Roderick Argueta Work Phone: [facility] Work Phone: Start: 08-09-2022 End: 08-09-[address] Roderick Argueta Work Phone: [facility] [place] Start: 05-12-2022 End: 05-12-[address] [facility]oderick Argu[facility] Start: 11-08-2021 End: 11-08-2021 Emergency department patient visit [facility]-Emergency Department Procedures Date Procedure Procedure Detail Performing Clinician Start: 08-19-[address] detection [address] Roderick Argueta Work Phone: Start: 08-19-[address] Roderick Argueta Work Phone: Start: 08-16-2023 Computed tomography of abdomen and pelvis with contrast Dr. Roderick Argueta Work Phone: Start: 07-02-2023 Radex hand minimum 3 views Vladimir Cruz APRN.CNP Work Phone: Start: 08-09-2022 Radiologic examinati on of knee Dr. Roderick Argueta Work Phone: Start: 08-09-2022 Plain x-ray of pelvi s and lower extremity Dr. Roderick Argueta Work Phone: Plan of Treatment Date Care Activity Detail Author Start: 09-09-2033 Urine microalbumin profile DTaP,Tdap,Td Vaccine (2 - Td or Tdap) [facility] Start: 02-05-2024 Covid-19 Vaccine ( season) Covid-19 Vaccine () [facility] Start: 02-05-2024 Influenza vaccination [facility] Start: 08-19-2023 Ova and Parasites Ova and Parasites [facility] Start: 08-16-2023 [facility] Start: 06-06-2023 Behavioral Health Screening Behavioral Health Screening [facility] Start: 06-06-2023 Depression Assessment Depression Assessment [facility] Start: 04-06-2023 HPV Vaccine (2 - Male 3-dose series) HPV Vaccine (2 - Male 3-dose series) [facility] Start: 02-04-2023 Covid-19 Vaccine ( season) Covid-19 Vaccine () [facility] Start: 02-04-2023 Influenza vaccination Influenza Vaccine (#1) [facility] Start: 01-19-2023 Hepatitis B Vaccine (1 of 3 - 19+ 3-dose series) Hepatitis B Vaccine (1 of 3 - 19+ 3-dose series) [facility] Start: 01-19-2023 Urine microalbumin profile DTaP,Tdap,Td Vaccine (1 - Tdap) [facility] Start: 01-19-2022 Anxiety Screening Anxiety Screening [facility] Start: 01-19-2022 Depression Screening Depression Screening [facility] Start: 01-19-2022 Hepatitis C screening Hepatitis C Screening [facility] Start: 01-19-2022 HIV screening HIV Screening [facility] Start: 2020 Meningococcal B Vaccine: Consider Based On Risk (1 of 2 - Patient Seeks Protection) Meningococcal B Vaccine: Consider Based On Risk (1 of 2 - Patient Seeks Protection) [facility] Start: 01-19-2018 Peds To Adult Transition Annual Assessment Peds To Adult Transition Annual Assessment [facility] Start: 2016 Peds To Adult Transition Initial Discussion Peds To Adult Transition Initial Discussion [facility] Start: 2004 Covid-19 Vaccine (#1) Covid-19 Vaccine (#1) [facility] Start: 2004 Hepatitis B Vaccine (1 of 3 - 3-dose series) Hepatitis B Vaccine (1 of 3 - 3-dose series) [facility] Antibody to lupus La protein measurement [facility] Antibody to SS-A measurement [facility] Beef IgE Ab [Units/v olume] in Serum [facility] Centromere protein B Ab [Units/volume] in Serum [facility] Chocolate IgE Ab [Units/volume] in Serum [facility] Chromatin Ab [Units/ volume] in Serum or Plasma [facility] Clostridioides diffi cile DNA [Presence] in Unspecified specimen by LUIS with probe detection [facility] Codfish IgE Ab [Units/volume] in Serum [facility] Hecker IgE Ab [Units/v olume] in Serum [facility] Cow milk IgE Ab [Units/volume] in Serum [facility] DNA double strand Ab [Units/volume] in Serum [facility] Gastrointestinal pat hogens panel - Stool by LUIS with probe detection [facility] Connie-1 extractable nuc lear Ab [Units/volume] in Serum [facility] Nuclear Ab [Presence ] in Serum [facility] Ova and parasites identified in Unspecified specimen by Light microscopy [facility] Patient Education ED Abrasion [facility] Work Phone: Patient referral [facility] Work Phone: Peanut IgE Ab [Units/volume] in Serum [facility] Pork IgE Ab [Units/v olume] in Serum [facility] Ribosomal P Ab [Units/volume] in Serum [facility] OCULAR CARE TECHNOLOGIST antibody measurement [facility] IgE Ab [Units/volume] in Serum [facility] SCL-70 extractable n uclear Ab [Units/volume] in Serum by Immunoassay [facility] Shrimp IgE Ab [Units/volume] in Serum [facility] Argueta extractable nu clear Ab [Presence] in Serum [facility] Soybean IgE Ab [Units/volume] in Serum [facility] Tuna IgE Ab [Units/v olume] in Serum [facility] Wheat IgE Ab [Units/ volume] in Serum [facility] Whole Egg IgE Ab [Units/volume] in Serum [facility] Immunizations Immunization Date Immunization Notes Care Provider Madai gao 09-10-2023 tetanus toxoid, redu caitlyn diphtheria toxoid, and acellular pertussis vaccine, adsorbed Renata Caballero APRN.SOCIAL WELFARE ADMINISTRATOR Work Phone: [facility] 03-09-2023 Human Papillomavirus 9-valent vaccine Renata Caballero APRN.SOCIAL WELFARE ADMINISTRATOR Work Phone: [facility] 03-08-2022 meningococcal polysaccharide (groups A, C, Y and W-135) diphtheria toxoid conjugate vaccine (MCV4P) Renata Caballero APRN.SOCIAL WELFARE ADMINISTRATOR Work Phone: [facility] Payers Date Payer Category Payer Unknown [id number] 2024 Unknown [id number] 2023 Self-pay [id number] 2023 Unknown [id number] 2023 Unknown PENDING 2023 Unknown [id number] 2020 Unknown [id number] 2020 Unknown [id number] 2004 Unknown [id number] 2.16.8 [id number] 2004 Unknown [id number] 2.16.8 [id number] Unknown [id number] Unknown [id number] 2.16.8 [id number] Unknown [id number] 2.16.8 [id number] Unknown [id number] 2.16.8 [id number] Unknown [id number] 2.16.8 [id number] Unknown [id number] 2.16.8 [id number] Unknown [id number] 2.16.8 [id number] Unknown [id number] 2.16.8 [id number] Unknown [id number] 2.16.8 [id number] Social History Date Type Detail Facility Start: 11-08-2021 End: 05-11-2023 Tobacco smoking status CTIS Unknown if ever smoked [facility] Start: 2004 Sex Assigned At Male [facility] Start: 07-02-2023 Tobacco smoking stat us CTIS Never smoked tobacco [facility] Start: 07-02-2023 Tobacco use and exposure Smokeless tobacco non-user [facility] Start: 12-19-2020 End: 07-02-2023 History of Social function [facility] Start: 12-19-2020 End: 07-02-2023 Tobacco use panel [facility] National Score (1-100), lower number is lower risk Not on file [facility] Start: 2004 Sex Assigned At Not on file [facility] Tobacco smoking status No Smokin g Status Entered [facility] Clinical Notes 07-02-2023 to 02-10-2024 Patient Nella Ghotra - 09/10/2023 11:33 AM Vladimir Anderson APRN.SOCIAL WELFARE ADMINISTRATOR - 07/02/2023 12:12 PM RASHIDDaArian infante, RT(R) - 07/02/2023 11:50 AM EST Note Date & Type Note Facility 02-10-2024 Note If ancillary studies were utilized, the following Laboratory Developed Test (LDT) disclaimer will apply: Under CLIA requirements, [facility] is qualified to perform high complexity testing. For all ancillary stains, positive and negative controls stain appropriately. Performance characteristics of immunohistochemical and chromogenic in-situ hybridization tests have been determined by [facility]. These tests are used for clinical purposes, They should not be regarded as investigational or for research. [facility] 02-09-2024 Note If ancillary studies were utilized, the following Laboratory Developed Test (LDT) disclaimer will apply: Under CLIA requirements, [facility] is qualified to perform high complexity testing. For all ancillary stains, positive and negative controls stain appropriately. Performance characteristics of immunohistochemical and chromogenic in-situ hybridization tests have been determined by [facility]. These tests are used for clinical purposes, They should not be regarded as investigational or for research. [facility] 02-09-2024 Note If ancillary studies were utilized, the following Laboratory Developed Test (LDT) disclaimer will apply: Under CLIA requirements, [facility] is qualified to perform high complexity testing. For all ancillary stains, positive and negative controls stain appropriately. Performance characteristics of immunohistochemical and chromogenic in-situ hybridization tests have been determined by [facility]. These tests are used for clinical purposes, They should not be regarded as investigational or for research. [facility] 02-09-2024 Note If ancillary studies were utilized, the following Laboratory Developed Test (LDT) disclaimer will apply: Under CLIA requirements, [facility] is qualified to perform high complexity testing. For all ancillary stains, positive and negative controls stain appropriately. Performance characteristics of immunohistochemical and chromogenic in-situ hybridization tests have been determined by [facility]. These tests are used for clinical purposes, They should not be regarded as investigational or for research. [facility] 02-09-2024 Note If ancillary studies were utilized, the following Laboratory Developed Test (LDT) disclaimer will apply: Under CLIA requirements, [facility] is qualified to perform high complexity testing. For all ancillary stains, positive and negative controls stain appropriately. Performance characteristics of immunohistochemical and chromogenic in-situ hybridization tests have been determined by [facility]. These tests are used for clinical purposes, They should not be regarded as investigational or for research. [facility] 02-09-2024 Note If ancillary studies were utilized, the following Laboratory Developed Test (LDT) disclaimer will apply: Under CLIA requirements, [facility] is qualified to perform high complexity testing. For all ancillary stains, positive and negative controls stain appropriately. Performance characteristics of immunohistochemical and chromogenic in-situ hybridization tests have been determined by [facility]. These tests are used for clinical purposes, They should not be regarded as investigational or for research. [facility] 02-09-2024 Note If ancillary studies were utilized, the following Laboratory Developed Test (LDT) disclaimer will apply: Under CLIA requirements, [facility] is qualified to perform high complexity testing. For all ancillary stains, positive and negative controls stain appropriately. Performance characteristics of immunohistochemical and chromogenic in-situ hybridization tests have been determined by [facility]. These tests are used for clinical purposes, They should not be regarded as investigational or for research. [facility] 11-17-2023 Note If ancillary studies were utilized, the following Laboratory Developed Test (LDT) disclaimer will apply: Under CLIA requirements, [facility] is qualified to perform high complexity testing. For all ancillary stains, positive and negative controls stain appropriately. Performance characteristics of immunohistochemical and chromogenic in-situ hybridization tests have been determined by [facility]. These tests are used for clinical purposes, They should not be regarded as investigational or for research. [facility] 11-17-2023 Note If ancillary studies were utilized, the following Laboratory Developed Test (LDT) disclaimer will apply: Under CLIA requirements, [facility] is qualified to perform high complexity testing. For all ancillary stains, positive and negative controls stain appropriately. Performance characteristics of immunohistochemical and chromogenic in-situ hybridization tests have been determined by [facility]. These tests are used for clinical purposes, They should not be regarded as investigational or for research. [facility] 11-16-2023 Note If ancillary studies were utilized, the following Laboratory Developed Test (LDT) disclaimer will apply: Under CLIA requirements, [facility] is qualified to perform high complexity testing. For all ancillary stains, positive and negative controls stain appropriately. Performance characteristics of immunohistochemical and chromogenic in-situ hybridization tests have been determined by [facility]. These tests are used for clinical purposes, They should not be regarded as investigational or for research. [facility] 11-16-2023 Note If ancillary studies were utilized, the following Laboratory Developed Test (LDT) disclaimer will apply: Under CLIA requirements, [facility] is qualified to perform high complexity testing. For all ancillary stains, positive and negative controls stain appropriately. Performance characteristics of immunohistochemical and chromogenic in-situ hybridization tests have been determined by [facility]. These tests are used for clinical purposes, They should not be regarded as investigational or for research. [facility] 11-16-2023 Note If ancillary studies were utilized, the following Laboratory Developed Test (LDT) disclaimer will apply: Under CLIA requirements, [facility] is qualified to perform high complexity testing. For all ancillary stains, positive and negative controls stain appropriately. Performance characteristics of immunohistochemical and chromogenic in-situ hybridization tests have been determined by [facility]. These tests are used for clinical purposes, They should not be regarded as investigational or for research. [facility] 11-16-2023 Note If ancillary studies were utilized, the following Laboratory Developed Test (LDT) disclaimer will apply: Under CLIA requirements, [facility] is qualified to perform high complexity testing. For all ancillary stains, positive and negative controls stain appropriately. Performance characteristics of immunohistochemical and chromogenic in-situ hybridization tests have been determined by [facility]. These tests are used for clinical purposes, They should not be regarded as investigational or for research. [facility] 11-16-2023 Note If ancillary studies were utilized, the following Laboratory Developed Test (LDT) disclaimer will apply: Under CLIA requirements, [facility] is qualified to perform high complexity testing. For all ancillary stains, positive and negative controls stain appropriately. Performance characteristics of immunohistochemical and chromogenic in-situ hybridization tests have been determined by [facility]. These tests are used for clinical purposes, They should not be regarded as investigational or for research. [facility] 09-10-2023 Instructions Renata Caballero APRN.SOCIAL WELFARE ADMINISTRATOR - 09/10/2023 11:50 AM EDT ASSESSMENT/PLAN: 1. Laceration of right ring finger without foreign body without damage to nail, initial encounter - ICD9: 883.0, ICD10: S61.214A (primary diagnosis) - TDAP VACCINE, AGE 7+ YR (ADACEL, BOOSTRIX) 2. Laceration of left index finger without foreign body without damage to nail, initial encounter - ICD9: 883.0, ICD10: S61.211A documented in this encounter [facility] 09-10-2023 Note HNO ID: [id number] Author: RENATA CABALLERO APRN.SOCIAL WELFARE ADMINISTRATOR Service: ? Author Type: ? Type: Progress [...] 883.0, ICD10: S61.211A JENSEN Garcia TEACHING PROVIDER (Physician/PA/ELECTRICAL TESTER) NOTE OF PERSONAL INVOLVEMENT IN CARE: I have personally seen and examined the patient and performed the medical decision-making components. I have reviewed the Advanced Practice Registered Nurse (ELECTRICAL TESTER) Student's documentation and verified the findings in the note as written. Any additions or changes are noted in bold/italics. Signature: Renata Caballero Date: 09/10/2023 Time: 11:49 AM [facility] 09-10-2023 History of Present illness Narrative [...] 883.0, ICD10: S61.211A JENSEN Garcia TEACHING PROVIDER (Physician/PA/ELECTRICAL TESTER) NOTE OF PERSONAL INVOLVEMENT IN CARE: I have personally seen and examined the patient and performed the medical decision-making components. I have reviewed the Advanced Practice Registered Nurse (ELECTRICAL TESTER) Student's documentation and verified the findings in the note as written. Any additions or changes are noted in bold/italics. Signature: Renata Caballero Date: 09/10/2023 Time: 11:49 AM documented in this encounter [facility] 07-02-2023 Note HNO ID: [id number] Author: VLADIMIR CRUZ APRN.SOCIAL WELFARE ADMINISTRATOR Service: ? Author Type: Nurse Practitioner Type: [...] of care. This note was generated using [employer]ango[employer] software. It may contain errors in wording, punctuation, or spelling. Vladimir Cruz APRN.[facility] 07-02-2023 History of Present illness Narrative [...] of care. This note was generated using [employer] software. It may contain errors in wording, punctuation, or spelling. Vladimir Cruz APRN.SAÚL documented in this encounter [facility] 07-02-2023 History of Present illness Narrative Radiology Service Progress Note PATIENT NAME: Juliet Morris DATE OF SERVICE: July 02, 2023 [...] PATIENT PRESENTS WITH AN IMPLANTABLE OR ATTACHED COMMUNITY RELATIONS COORDINATOR: No RADIOLOGY DEPARTMENT: General X-ray: Exam(s) Completed: Upper Extremity X-Ray(s): Hand, left PERIPHERAL IV DATA: Not applicable SIGNED BY: RT Sneha(R) July 02, 2023 12:07 PM documented in this encounter [facility] 07-02-2023 Note HNO ID: [id number] Author: ARIAN PEDERSON RT(Blas) Service: Radiology Author Type: Technologist Type: Progress Notes Filed: 07/02/2023 12:12 Note Text: Radiology Service Progress Note PATIENT NAME: Juliet Morris DATE OF SERVICE: July 02, 2023 [...] PATIENT PRESENTS WITH AN IMPLANTABLE OR ATTACHED COMMUNITY RELATIONS COORDINATOR: No RADIOLOGY DEPARTMENT: General X-ray: Exam(s) Completed: Upper Extremity X-Ray(s): Hand, left PERIPHERAL IV DATA: Not applicable SIGNED BY: RT Sneha(R) July 02, 2023 12:07 PM [facility] Evaluation + Plan note No data available for this section [facility] Evaluation note No assessment inform ation available [facility] Work Phone: Evaluation note Diagnosis Hand pain, left- Primary Pain in limb [facility] Diagnosis Onset Date Resolution Status Asthma chronic [facility] Work Phone: Evaluation note* Diagnosis Laceration of right ring finger without foreign body without damage to nail, initial encounter- Primary Laceration of left index finger without foreign body without damage to nail, initial encounter [facility] Diagnosis Hand pain, left Pain in limb documented in this encounter [facility] Discharge instructions No data available for this section [facility] Reason for referral (narrative)* Diagnostic Procedure Only (Urgent) - Closed Specialty Diagnoses / Procedures Referred By Contac t Referred To Contact XR IMAGING Diagnoses Hand pain, left Procedures XR HAND GENERAL 3V PA/LAT/OBL LEFT RADEX HAND MINIMUM 3 VIEWS Vladimir Cruz APRN.SOCIAL WELFARE ADMINISTRATOR [address] [place] [id number] [place] [address] Referral ID Status Reason Start Date Expiration Date V isits Requested Visits Authorized [id number] Closed Auto-Generate d Referral 07/02/2023 07/31/2024 1 1 [facility] for referral (narrative)* Diagnostic Procedure Only (Urgent) - Closed Specialty Diagnoses / Procedures Referred By Contac t Referred To Contact XR IMAGING Diagnoses Hand pain, left Procedures XR HAND GENERAL 3V PA/LAT/OBL LEFT RADEX HAND MINIMUM 3 VIEWS Vladimir Cruz APRN.CNP [address] [place] [address] [place] [address] Referral ID Status Reason Start Date Expiration Date V isits Requested Visits Authorized [id number] Closed Auto-Generate d Referral 07/02/2023 [facility]31[facility]24 [facility] Procedure Only (Urgent) - Closed Specialty Diagnoses / Procedures Referred By Contac t Referred To Contact XR IMAGING Diagnoses Hand pain, left Procedures XR HAND GENERAL 3V PA/LAT/OBL LEFT RADEX HAND MINIMUM 3 VIEWS Vladimir Cruz APRN.SOCIAL WELFARE ADMINISTRATOR [address] [place] [address] [place] [address] Referral ID Status Reason Start Date Expiration Date V isits Requested Visits Authorized [id number] Closed Auto-Generate d Referral 07/02/2023 07/31/2024 1 1 [facility] Chief Complaint and Reason for Visit Chief Complaint LAC Chief Complaint 1 Y FU LABS AND KNEE XRAY Chief Complaint 1 Y FU LLQ PAIN Reason for Visit Asthma Advance Directives No Advanced Directives Records Found Advance Directive Response Recorded Date/ Time Living Will No March 16 11:24pm Power of Photoengraver No March 16, 2016 11:24pm Summary Purpose Family History No Family History Records Found Additional Source Comments Goals (unrecognized section and content) Goals may be documented in a n alternate sectionGoals may be documented in an alternate sectionGoals may be documented in an alternate sectionGoals may be documented in an alternate sectionGoals may be documented in an alternate section No data available for this section No data available for this section Care Teams (unrecognized sec tion and content) Team Status: Active Member Role Status Dates Dr. Rambo Lubin MD Family Provider Active Dr. Roderick Argueta MD Primary Care Provider Active Team Status: Inactive Member Role Status Dates Dr. Roderick Argueta MD Primary Care Provider, Referring P fariba Active Linn Chi WEB MASTER, WEB MASTER-C Attending Provider Active Team Status: Inactive Member Role Status Dates Dr. Roderick Argueta MD Primary Care Provide r, Attending Provider, Referring Provider Active Team Status: Inactive Member Role Status Dates Dr. Roderick Argueta MD Primary Care Provider, Referring P fariba Active Dr. Flaco Quispe DO Attending Provider Active Team Status: Inactive Member Role Status Dates Dr. Roderick Argueta MD Primary Care Provider, Attending P fariba Active Team Status: Active Member Role Status Dates Dr. Roderick Argueta MD Primary Care Provide r, Attending Provider, Referring Provider Active Source Comments (unrecognize d section and content) In the event this informatio n is protected by the Federal Confidentiality of Alcohol and Drug Abuse Patient Records regulations: The Federal rules restrict any use of the information to criminally investigate or prosecute any alcohol or drug abuse patient.[facility] the event this information is protected by the Federal Confidentiality of Alcohol and Drug Abuse Patient Records regulations: The Federal rules restrict any use of the information to criminally investigate or prosecute any alcohol or drug abuse patient.[facility] the event this information is protected by the Federal Confidentiality of Alcohol and Drug Abuse Patient Records regulations: The Federal rules restrict any use of the information to criminally investigate or prosecute any alcohol or drug abuse patient.[facility] Reason for Visit (unrecogniz ed section and content) Reason Comments Bwc (Worker's Comp) L hand thumb injury x1 day Reason Comments Laceration small 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 hands 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 [employer] provides no warranty or guarantee of the accuracy or completeness of information in this document.
[2025-02-10 12:20] VITALS: BMI 33.9
[2025-02-10] MEDS: Orphenadrine 60 MG/2 ML Ampul IM (12:25)
== END 2025-02-10 12:57 | disposition home or self-care (01) ==
LOC: ED 12:15
PROVIDERS: Emergency Provider Emergency Medicine; PCP Family Medicine; Visit Provider Emergency Medicine
DX: S39.012A Strain of muscle, fascia and tendon of lower back, initial encounter (principal); M62.830 Muscle spasm of back; X50.1XXA Overexertion from prolonged static or awkward postures, initial encounter; Y93.E6 Activity, residential relocation; K21.9 Gastro-esophageal reflux disease without esophagitis; Z79.899 Other long term (current) drug therapy
CPT/HCPCS: 96372; 99283

== ENCOUNTER 2025-03-28 16:30 | Outpatient (RCR) | payer OTHER, BC, SELFPAY ==
--- NOTE | 2025-02-18 17:03 | HP.PTEVAL_ITS ---
Patient's Visit Information Visit Information Visit Information: JULIET CASSIDY is a 20 year old M referred to Physical Therapy by Dr. Roderick Argueta MD with a diagnosis of BACK STRAIN ,WEAK CORE. Date of Evaluation: 02/18/25 Physical Therapist: Rambo Mcdermott, PT, Cert MDT, OCS Visit Plan Frequency: 2x /Week Duration: 4 Weeks Plan: PT INTERVENTIONS ELVIA EX'S ,POSTURAL EX'S ,DLS ,MANUAL THERAPY ,AND POSTURE/BODY MECHANICS TRAINING Subjective Subjective: This 20 y/o male presents to physical therapy with lumbar pain. Patient HAS had lumbar pain for 5 years. Patient incident of injury to back bending over Feb 09. Pain located left lumbar . Went to ER medication. 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 Medication pain medication prednisone and muscle relaxer. Seen Family DR Ortiz Switched to meloxicam. Pain located left lumbar. Aggravating factors banding/lifting ,sitting . Alleviating walking rest. Coughing/sneezing + intailly. Denies paresthesia/tingling-. Sleeping good occasional spasm. Patient condition affects QOL and function/job demands. Patient goals no pain. SOCIAL: Single VOCATION: [employer] Pain Left Back: Pain Intensity (Out of 10): 2 Pain Intensity Range: 7 Comment: bedning Objective Objective: POSTURE: mild rounded shoulders head forward GAIT: reciprocal pattern PALAPTION: unremarkable FLEXABILITY: hamstrings mod tight MMT:quads/hams 4/5 ,hip flexion 4/5 ,ankle 5/5 LUMBAR ROM : flexion mod loss ,extension mod loss ,side glides min loss Special Tests L/S Slump test left side: Negative L/S Slump test right side: Negative L/S Left Straight Leg Raise: Negative L/S Right Straight Leg Raise: Negative Lumbar Standing: Flexion - Mechanical Response: No effect Lumbar Standing: Flexion - Symptoms During Testing: Increases Lumbar Standing: Flexion - Symptoms After Testing: Worse Lumbar Standing: Extension - Mechanical Response: No effect Lumbar Standing: Extension - Symptoms During Testing: Increases Lumbar Standing: Extension - Symptoms After Testing: No worse Lumbar Standing: Right Side Glides - Mechanical Response: No effect Lumbar Standing: Right Side [place] - Symptoms During Testing: No effect Lumbar Standing: Right Side [place] - Symptoms After Testing: No effect Lumbar Standing: Left Side [place] - Mechanical Response: No effect Lumbar Standing: Left Side [place] - Symptoms During Testing: Increases Lumbar Standing: Left Side [place] - Symptoms After Testing: No worse Lumbar Lying: Flexion - Mechanical Response: No effect Lumbar Lying: Flexion - Symptoms During Testing: Increases Lumbar Lying: Flexion - Symptoms After Testing: Worse Lumbar Lying: Extension - Mechanical Response: Increases motion Lumbar Lying: Extension - Symptoms During Testing: Centralizing Lumbar Lying: Extension - Symptoms After Testing: Better Balance/Special Test Scores Oswestry Low Back Score: 17 Goals Goal 1:: Patient to be I with HEP for back Goal Time Frame: 4-6 Weeks Goal 2:: Patient to improve lumbar ROM for function of recovery for ADLS and job demands Goal Time Frame: 4-6 Weeks Goal 3:: Patient to demonstrate 70 % improvement with less pain and improved function Goal Time Frame: 4-6 Weeks Goal 4:: Patient to improve back oswestry score by 5 points to improve QOL and function. Goal Time Frame: 4-6 Weeks Rehabilitation Potential Physical Therapy Diagnosis: Patient appears to have derangement asymmetrical /central with pain with position and motion testing worse with flexion lifting better with extension with mechanical response thus benefit from skilled PT Rehabilitation Potential: Good Anticipated Interventions Patient/Client Instruction: Educate patient on: Condition and Plan of Care For the Purpose of:: To decrease pain, To increase ROM, To improve muscle performance and motor function, To improve ability to perform ADL's, To increase tolerance to activity/condition/position, To improve ability of physical actions for home/community/work/leisure, To improve gait and locomotor functions, To improve health of tissue, To decrease soft tissue restriction and To increase flexibility/ROM Therapeutic Exercise to Include: Strength training, Postural training and Flexibilty training For the Purpose of:: To decrease pain, To increase ROM, To improve muscle performance and motor function, To increase tolerance to activity/condition/position, To improve ability of physical actions for home/community/work/leisure, To improve health of tissue, To decrease soft tissue restriction and To increase flexibility/ROM Manual Therapy Techniques to Include: Mobilization For the Purpose of:: To decrease pain and To increase ROM TENS: Yes IF ES: Yes Cryotherapy (ice pack, ice massage): Yes Thermo therapy (hot pack): Yes For the Purpose of:: To decrease pain and To increase ROM Text: Thank you for the opportunity to evaluate your patient. For Medicare and Medicare HMO plans, please review the plan of care and approve it. It will need to be FAXED BACK to us at [phone] for Medicare purposes. For Medicare only, by signing this I certify the plan of care. Please let me know if there are questions or concerns regarding this plan of care. Physician Signature: Date:
--- NOTE | 2025-03-28 17:03 | HP.PTDCSUM ---
Discharge Summary D/C summary: It has been my pleasure to treat JULIET CASSIDY referred by Dr. Roderick Argueta MD, with the diagnosis of BACK STRAIN ,WEAK CORE for a total of 3 visit(s). Discharge Date: 03/28/25 Please see the following information for a summary of their discharge status. Subjective Subjective: Doing well ready to be d/c Just got back from [place] Pain Left Back: Pain Intensity (Out of 10): 0 Overall Improvement % Improvement: 75 Objective Objective/Function: POSTURE: mild rounded shoulders head forward GAIT: reciprocal pattern PALAPTION: unremarkable FLEXABILITY: hamstrings min tight MMT:quads/hams 4/5 ,hip flexion 4/5 ,ankle 5/5 LUMBAR ROM : flexion WFL ,extension WFL ,side glides WFL Goals Goal 1:: Patient to be I with HEP for back Goal Progress: Goal Met Goal 2:: Patient to improve lumbar ROM for function of recovery for ADLS and job demands Goal Progress: Goal Met Goal 3:: Patient to demonstrate 70 % improvement with less pain and improved function Goal Progress: Goal Met Goal 4:: Patient to improve back oswestry score by 5 points to improve QOL and function. Goal Progress: Goal Met Plan Plan: D/C D/C Information Discharge Comments: hep d/c sentence: If there are questions or concerns regarding this patient's physical therapy, please feel free to call me at [phone]. Thank you for the referral of this patient. Sincerely, Rambo Mcdermott, PT, Cert MDT, OCS Balance/Gait/Functional tests Balance/Special Test Scores Oswestry Low Back Score: 5 Improvement % Improvement: 75
== END 2025-03-28 19:00 | disposition home or self-care (01) ==
LOC: PT 16:30
PROVIDERS: PCP Family Medicine; Referring Provider Family Medicine; Visit Provider Family Medicine
DX: S39.012D Strain of muscle, fascia and tendon of lower back, subsequent encounter (principal); R53.1 Weakness
CPT/HCPCS: 97110; 97161